=== PATIENT | male | born 1945 | race Caucasian/White ===

== ENCOUNTER 2016-09-07 11:25 | Observation (INO) | payer OTHER, MEDICARE, BC ==
--- NOTE | 2016-09-07 11:47 | ER Document Report ---
ED General - General Stated Complaint: CHEST PAIN Mode of Arrival: Ambulatory Information source: Patient Notes: 71 yr old male with no hx of cardiac concern presents with complitns of left sided chest pain. Pt notes initially he got very nauseated, vomited 3x, then had left sided discomfort which turned into chest pain lasting about 30 minutes. Pt notes pain resolved on its own. denies any fevers or chills. - HPI Onset: Just prior to arrival Onset/Duration: Sudden Quality of pain: Achy, Pressure Severity: Mild Pain Level: 1 Associated symptoms: Chest pain, Nausea, Vomiting Exacerbated by: Denies Relieved by: Denies Similar symptoms previously: No Recently seen / treated by doctor: No Past Medical History - Social History Smoking Status: Former Smoker Cigarette use (# per day): No Chew tobacco use (# tins/day): No Smoking Education Provided: No Family History: Reviewed & Not Pertinent Review of Systems - Review of Systems Notes: REVIEW OF SYSTEMS: CONSTITUTIONAL : Denies fever, chills, or sweats. Denies recent illness. EENT: Denies eye, ear, throat, or mouth pain or symptoms. Denies nasal or sinus congestion or discharge. Denies throat, tongue, or mouth swelling or difficulty swallowing. CARDIOVASCULAR: Admits to chest pain RESPIRATORY: Denies cough, cold, or chest congestion. Denies shortness of breath, difficulty breathing, or wheezing. GASTROINTESTINAL: Admits to nausea vomiting. GENITOURINARY: Denies difficulty urinating, painful urination, burning, frequency, blood in urine, or discharge. MUSCULOSKELETAL: Denies back or neck pain or stiffness. Denies joint pain or swelling. SKIN: Denies rash, lesions or sores. HEMATOLOGIC : Denies easy bruising or bleeding. LYMPHATIC: Denies swollen, enlarged glands. NEUROLOGICAL: Denies confusion or altered mental status. Denies passing out or loss of consciousness. Denies dizziness or lightheadedness. Denies headache. Denies weakness or paralysis or loss of use of either side. Denies problems with gait or speech. Denies sensory loss, numbness, or tingling. Denies seizures. PSYCHIATRIC: Denies anxiety or stress. Denies depression, suicidal ideation, or homicidal ideation. ALL OTHER SYSTEMS REVIEWED AND NEGATIVE. Dictation was performed using [employer] voice recognition software PHYSICAL EXAMINATION: GENERAL: Well-appearing, well-nourished and in no acute distress. HEAD: Atraumatic, normocephalic. EYES: Pupils equal round and reactive to light, extraocular movements intact, sclera anicteric, conjunctiva are normal. ENT: Nares patent, oropharynx clear without exudates. Moist mucous membranes. NECK: Normal range of motion, supple without lymphadenopathy LUNGS: Breath sounds clear to auscultation bilaterally and equal. No wheezes rales or rhonchi. HEART: Regular rate and rhythm without murmurs ABDOMEN: Soft, nontender, nondistended abdomen. No guarding, no rebound. No masses appreciated. Musculoskeletal: Normal range of motion, no pitting or edema. No cyanosis. NEUROLOGICAL: Cranial nerves grossly intact. Normal speech, normal gait. Normal sensory, motor exams PSYCH: Normal mood, normal affect. SKIN: Warm, Dry, normal turgor, no rashes or lesions noted. Course - Re-evaluation Re-evalutation: 09/07/16 11:46 On evaluation patient is in no distress at this time EKG notes no acute abnormality, lab work is pending I expect ACS rule out for this patient given age and presentation 09/07/16 13:04 lab work , ekg chest xray - Laboratory Result Diagrams: 09/07/16 11:40 09/07/16 11:40 Laboratory results interpreted by me: 09/07/16 09/07/16 11:40 11:40 WBC 13.7 H Hgb 12.3 L MCH 26.7 L RDW 15.6 H Seg Neuts % (Manual) 92 H Band Neutrophils % 2 L Lymphocytes % (Manual) 3 L Monocytes % (Manual) 1 L Abs Neuts (Manual) 12.9 H BUN 28 H Glucose 129 H Alkaline Phosphatase 133 H Creatine Kinase 38 L - Diagnostic Test Radiology reviewed: Image reviewed, Reports reviewed - EKG Interpretation by Me EKG shows normal: Sinus rhythm, Westfall, Intervals, QRS Complexes Discharge - Discharge Clinical Impression: Chest pain Qualifiers: Chest pain type: unspecified Qualified Code(s): R07.9 - Chest pain, unspecified Nausea and vomiting Qualifiers: Vomiting type: unspecified Vomiting Intractability: non-intractable Qualified Code(s): R11.2 - Nausea with vomiting, unspecified Hypertension Qualifiers: Hypertension type: essential hypertension Qualified Code(s): I10 - Essential ( primary) hypertension Diabetes mellitus Qualifiers: Diabetes mellitus type: type 1 Diabetes mellitus complication status: with unspecified complications Qualified Code(s): E10.8 - Type 1 diabetes mellitus with unspecified complications Condition: Stable Disposition: ADMITTED OBSERVATION Admitting Provider: Hospitalist Unit Admitted: Telemetry
[2016-09-07 12:03] LABS: HEMOGLOBIN 12.3 g/dL (13.5-17.0); HGB HCT DIFFERENCE -1.1; MEAN CORPUSCULAR HEMOGLOBIN 26.7 pg (27.0-33.4); MEAN CORPUSCULAR HGB CONC 32.3 g/dL (32.0-36.0); MEAN CORPUSCULAR VOLUME 83 fl (80-97); RED BLOOD COUNT 4.59 10^6/uL (4.35-5.55); RED CELL DISTRIBUTION WIDTH 15.6 % (11.5-14.0); WHITE BLOOD COUNT 13.7 10^3/uL (4.0-10.5)
[2016-09-07 12:17] LABS: ALANINE AMINOTRANSFERASE 24 U/L (21-72); ALBUMIN 3.9 g/dL (3.5-5.0); ALKALINE PHOSPHATASE 133 U/L (38-126); ANION GAP 14 (5-19); ASPARTATE AMINO TRANSFERASE 20 U/L (17-59); BILIRUBIN,DIRECT 0.2 mg/dL (0.0-0.4); BILIRUBIN,TOTAL 0.5 mg/dL (0.2-1.3); BLOOD UREA NITROGEN 28 mg/dL (7-20); CALCIUM 9.6 mg/dL (8.4-10.2); CARBON DIOXIDE 28 mmol/L (22-30); CHLORIDE 102 mmol/L (98-107); CREATINE KINASE 38 U/L (55-170); CREATININE RESULT 0.84 mg/dL (0.52-1.25); GLUCOSE 129 mg/dL (75-110); POTASSIUM 4.8 mmol/L (3.6-5.0); SODIUM 144.2 mmol/L (137-145); TOTAL PROTEIN 7.5 g/dL (6.3-8.2)
[2016-09-07 12:23] LABS: BAND NEUTROPHILS % (MANUAL) 2 % (3-5); BASOPHILS % (MANUAL) 0 % (0-2); EOSINOPHILS % (MANUAL) 1 % (0-6); LYMPHOCYTES % (MANUAL) 3 % (13-45); TOTAL CELLS COUNTED 100
[2016-09-07 12:24] LABS: ANISOCYTOSIS SLIGHT; HYPOCHROMASIA SLIGHT
[2016-09-07 12:27] LABS: CREATINE KINASE MB 0.82 ng/mL (<4.55); TROPONIN I < 0.012 ng/mL
[2016-09-07] MEDS ORDERED: ONDANSETRON HCL INJ/PF 4 MG/2 ML SDV IV PRN (13:16)
[2016-09-07] MEDS ORDERED: NITROGLYCERIN 0.4 MG/TAB 25 TAB/BOTTLE SL PRN (13:16)
[2016-09-07] MEDS ORDERED: MAG HYDROX/AL HYDROX/SIMETH SUSP 30 ML UDCUP PO PRN (13:16)
[2016-09-07] MEDS ORDERED: KETOROLAC TROMETHAMINE INJ/PF 30 MG/1 ML SDV IV PRN (13:48)
[2016-09-07] MEDS ORDERED: INSULIN LISPRO 100 UNIT/ML 3 ML VIAL SUBCUT PRN (13:49)
[2016-09-07] MEDS ORDERED: DEXTROSE 50%-WATER 25 GM/50 ML DISP.SYRIN IV PRN ×2 (13:49)
[2016-09-07] MEDS ORDERED: GLUCAGON,HUMAN RECOMB 1 MG INJ IM PRN (13:49)
[2016-09-07] MEDS ORDERED: DEXTROSE 40% GEL 15 GM TUBE PO PRN ×2 (13:49)
--- NOTE | 2016-09-07 15:25 | PDOC H&P ---
History of Present Illness Patient complains of: Left sided chest pain, nausea and vomiting History of Present Illness: LITA LANG is a 71 year old male with medical history of diabetes mellitus type I, hypertension, dyslipidemia and former tobacco abuse. Presents to [facility] emergency room this morning with complaints of left-sided chest discomfort that lasted for approximately 30 minutes after a period of nausea, vomiting, and pain. Denies any prior history of chest pain or angina. He is 2 months post left thoracotomy for left lower lobectomy for stage I lung cancer. He states pain is not similar to his incisional discomfort. He does have a history of gastroesophageal reflux disease, which was not like this pain either. This pain started out as dull, until he vomited, and then became severe and last approximately 30 minutes. That is why he opted to seek medical care. The pain had resolved by the time he arrived in the ED. He has no further nausea or vomiting symptoms either. He denies any shortness of breath or diaphoresis with the pain. Past Medical History Cardiac Medical History: Reports: None Pulmonary Medical History: Reports: Chronic Obstructive Pulmonary Disease (COPD) , Other - Recent left lower lobectomy for lung cancer EENT Medical History: Reports: None Neurological Medical History: Reports: None Endocrine Medical History: Reports: Diabetes Mellitus Type 1, Diabetes Mellitus Type 2 Renal/ Medical History: Reports: None Malignancy Medical History: Reports: Lung Cancer, Other - Trochanter GI Medical History: Reports: Gastroesophageal Reflux Disease Musculoskeltal Medical History: Reports: None Skin Medical History: Reports: None Psychiatric Medical History: Reports: None Traumatic Medical History: Reports: None Hematology: Reports: None Infectious Medical History: Reports: None Past Surgical History Past Surgical History: Reports: Other - left thoracotomy, left lower lobectomy Social History Information Source: Patient Lives with: Spouse/Significant other Smoking Status: Former Smoker Number of Years Smokin Last Time Smoked: 10 years ago Frequency of Alcohol Use: Rare Hx Recreational Drug Use: No Hx Prescription Drug Abuse: No - Advance Directive Resuscitation Status: Full Code Surrogate healthcare decision maker:: Hanna Family History Family History: Hyperlipidemia, Hypertension Parental Family History Reviewed: Yes Children Family History Reviewed: Yes Sibling(s) Family History Reviewed.: Yes Medication/Allergy Home Medications: Albuterol Sulfate [Proair HFA] 2 puff IH BID 09/07/16 Aspirin [Aspirin 325 mg Tablet] 325 mg PO DAILY 09/07/16 Cholecalciferol (Vitamin D3) [Vitamin D3 1000 Unit Tablet] 1 tab PO DAILY Hydrochlorothiazide [Hydrodiuril 25 mg Tablet] 25 mg PO QAM 09/07/16 Insulin Aspart [Novolog Insulin (Aspart) 100 unit/mL] 0 units PUMP .PER PUMP 01/16 Methocarbamol [Robaxin 500 mg Tablet] 500 mg PO BID 09/07/16 Multivitamin [Daily Multiple Vitamin] 1 tab PO DAILY 09/07/16 Omeprazole 20 mg PO QPM 09/07/16 Sertraline HCl [Zoloft] 100 mg PO QHS 09/07/16 Simvastatin [Zocor 20 mg Tablet] 10 mg PO QHS 09/07/16 Sulindac [Clinoril] 200 mg PO BID 09/07/16 Trazodone HCl [Desyrel] 100 mg PO QHS 09/07/16 Allergies/Adverse Reactions: divalproex sodium [From Depakote] Allergy (Verified 09/07/16 13:36) codeine Adverse Reaction (Verified 09/07/16 13:36) Review of Systems Constitutional: ABSENT: chills, fever(s), headache(s), weight gain, weight loss Eyes: ABSENT: visual disturbances Ears: ABSENT: hearing changes Cardiovascular: PRESENT: chest pain Respiratory: ABSENT: cough, hemoptysis Gastrointestinal: PRESENT: nausea, vomiting Genitourinary: ABSENT: dysuria, hematuria Musculoskeletal: ABSENT: joint swelling Integumentary: ABSENT: rash, wounds Neurological: ABSENT: abnormal gait, abnormal speech, confusion, dizziness, focal weakness, syncope Psychiatric: ABSENT: anxiety, depression, homidical ideation, suicidal ideation Endocrine: ABSENT: cold intolerance, heat intolerance, polydipsia, polyuria Hematologic/Lymphatic: ABSENT: easy bleeding, easy bruising Physical Exam Vital Signs: Temp Pulse Resp BP Pulse Ox 25 H 137/81 H 97 09/07/16 13:01 09/07/16 13:01 09/07/16 13:01 Intake & Output 09/06/16 09/07/16 09/08/16 06:59 06:59 06:59 Weight 81.647 kg General appearance: PRESENT: no acute distress, well-developed, well-nourished Head exam: PRESENT: atraumatic, normocephalic Eye exam: PRESENT: conjunctiva pink, EOMI, PERRLA. ABSENT: scleral icterus Ear exam: PRESENT: normal external ear exam Mouth exam: PRESENT: moist, tongue midline Neck exam: ABSENT: carotid bruit, JVD, lymphadenopathy, thyromegaly Respiratory exam: PRESENT: clear to auscultation grisel. ABSENT: rales, rhonchi, wheezes Cardiovascular exam: PRESENT: RRR. ABSENT: diastolic murmur, rubs, systolic murmur Pulses: PRESENT: normal dorsalis pedis pul Vascular exam: PRESENT: normal capillary refill GI/Abdominal exam: PRESENT: normal bowel sounds, soft. ABSENT: distended, guarding, mass, organolmegaly, rebound, tenderness Rectal exam: PRESENT: deferred Extremities exam: PRESENT: full ROM. ABSENT: calf tenderness, clubbing, pedal edema Neurological exam: PRESENT: alert, awake, oriented to person, oriented to place , oriented to time, oriented to situation, CN II-XII grossly intact. ABSENT: motor sensory deficit Psychiatric exam: PRESENT: appropriate affect, normal mood. ABSENT: homicidal ideation, suicidal ideation Skin exam: PRESENT: dry, intact, warm. ABSENT: cyanosis, rash Results Laboratory Results: 09/07/16 11:40 09/07/16 11:40 09/07/16 09/07/16 11:40 11:40 WBC 13.7 H RBC 4.59 Hgb 12.3 L Hct 38.0 MCV 83 MCH 26.7 L MCHC 32.3 RDW 15.6 H Plt Count 341 Seg Neutrophils % Not Reportable Lymphocytes % Not Reportable Monocytes % Not Reportable Eosinophils % Not Reportable Basophils % Not Reportable Absolute Neutrophils Not Reportable Absolute Lymphocytes Not Reportable Absolute Monocytes Not Reportable Absolute Eosinophils Not Reportable Absolute Basophils Not Reportable Sodium 144.2 Potassium 4.8 Chloride 102 Carbon Dioxide 28 Anion Gap 14 BUN 28 H Creatinine 0.84 Est GFR ( Amer) > 60 Est GFR (Non-Af Amer) > 60 Glucose 129 H Calcium 9.6 Total Bilirubin 0.5 AST 20 ALT 24 Alkaline Phosphatase 133 H Total Protein 7.5 Albumin 3.9 09/07/16 09/07/16 11:40 11:40 Creatine Kinase 38 L CK-MB (CK-2) 0.82 Troponin I < 0.012 Impressions: Chest X-Ray 09/07/16 11:25 IMPRESSION: Postsurgical changes left lung. No acute findings. Assessment & Plan - Diagnosis (1) Chest pain Qualifiers: Chest pain type: unspecified Qualified Code(s): R07.9 - Chest pain, unspecified Is this a current diagnosis for this admission?: YesPlan: Will admit to telemetry on observation. Serial troponins to rule out acute coronary syndrome. Pain atypical for angina, most likely GI origin. (2) Diabetes Qualifiers: Diabetes mellitus type: type 1 Diabetes mellitus complication status: with unspecified complications Qualified Code(s): E10.8 - Type 1 diabetes mellitus with unspecified complications Is this a current diagnosis for this admission?: YesPlan: Continue insulin pump and sliding scale insulin (3) Hypertension Qualifiers: Hypertension type: essential hypertension Qualified Code(s): I10 - Essential (primary) hypertension Is this a current diagnosis for this admission?: YesPlan: Continue home medications he is presently normotensive (4) Nausea & vomiting Qualifiers: Vomiting type: unspecified Vomiting Intractability: non-intractable Qualified Code(s): R11.2 - Nausea with vomiting, unspecified Is this a current diagnosis for this admission?: YesPlan: When necessary antiemetics (5) Lung cancer, lower lobe Qualifiers: Laterality: left Qualified Code(s): C34.32 - Malignant neoplasm of lower lobe, left bronchus or lung Is this a current diagnosis for this admission?: YesPlan: Patient recently underwent left thoracotomy, left lower lobectomy for stage I lung cancer. He continues to have some chest wall tenderness - Time Time Spent: 50 to 70 Minutes Critical Time spent with patient: 25-34 minutes Medications reviewed and adjusted accordingly: Yes Anticipated discharge: Home Within: within 24 hours
[2016-09-07 15:49] VITALS: BP 143/65
[2016-09-07] MEDS ORDERED: LANSOPRAZOLE 15 MG TAB.RAP.DR PO ONE (16:00)
--- NOTE | 2016-09-07 16:59 | PDOC DISCHARGE SUMMARY ---
General - Admit/Disc Date/PCP Admission Date/Primary Care Provider: 09/07/16 13:16 Discharge Date: 09/07/16 - Discharge Diagnosis (1) Chest pain Is this a current diagnosis for this admission?: YesSummary: Patient signed out AMA (2) Diabetes Is this a current diagnosis for this admission?: Yes (3) Hypertension Is this a current diagnosis for this admission?: Yes (4) Nausea & vomiting Is this a current diagnosis for this admission?: Yes (5) Lung cancer, lower lobe Is this a current diagnosis for this admission?: Yes - Additional Information Resuscitation Status: Full Code Home Medications: Albuterol Sulfate [Proair HFA] 2 puff IH BID 09/07/16 Aspirin [Aspirin 325 mg Tablet] 325 mg PO DAILY 09/07/16 Cholecalciferol (Vitamin D3) [Vitamin D3 1000 Unit Tablet] 1 tab PO DAILY Hydrochlorothiazide [Hydrodiuril 25 mg Tablet] 25 mg PO QAM 09/07/16 Insulin Aspart [Novolog Insulin (Aspart) 100 unit/mL] 0 units PUMP .PER PUMP 01/16 Methocarbamol [Robaxin 500 mg Tablet] 500 mg PO BID 09/07/16 Multivitamin [Daily Multiple Vitamin] 1 tab PO DAILY 09/07/16 Omeprazole 20 mg PO QPM 09/07/16 Sertraline HCl [Zoloft] 100 mg PO QHS 09/07/16 Simvastatin [Zocor 20 mg Tablet] 10 mg PO QHS 09/07/16 Sulindac [Clinoril] 200 mg PO BID 09/07/16 Trazodone HCl [Desyrel] 100 mg PO QHS 09/07/16 History of Present Illness Patient complains of: Chest pain History of Present Illness: LITA LANG is a 71 year old male with medical history of diabetes mellitus type I, hypertension, dyslipidemia and former tobacco abuse. Presents to [facility]'s emergency room this morning with complaints of left-sided chest discomfort that lasted for approximately 30 minutes after a period of nausea, vomiting, and pain. Denies any prior history of chest pain or angina. He is 2 months post left thoracotomy for left lower lobectomy for stage I lung cancer. He states pain is not similar to his incisional discomfort. He does have a history of gastroesophageal reflux disease, which was not like this pain either. This pain started out as dull, until he vomited, and then became severe and last approximately 30 minutes. That is why he opted to seek medical care. The pain had resolved by the time he arrived in the ED. He has no further nausea or vomiting symptoms either. He denies any shortness of breath or diaphoresis with the pain. Hospital Course Hospital Course: Patient had been admitted on observation status for chest pain. First 2 initial troponins were less than 0.012 patient states he feels fine. Patient states he wishes to go home, RN gave him the AGAINST MEDICAL ADVICE form he did sign it and he was discharged. Physical Exam Vital Signs: Temp Pulse Resp BP Pulse Ox 98.2 F 17 143/65 H 97 09/07/16 15:01 09/07/16 15:01 09/07/16 15:01 09/07/16 15:01 General appearance: PRESENT: no acute distress, well-developed, well-nourished Head exam: PRESENT: atraumatic, normocephalic Eye exam: PRESENT: conjunctiva pink, EOMI, PERRLA. ABSENT: scleral icterus Ear exam: PRESENT: normal external ear exam Mouth exam: PRESENT: moist, tongue midline Neck exam: ABSENT: carotid bruit, JVD, lymphadenopathy, thyromegaly Respiratory exam: PRESENT: clear to auscultation grisel. ABSENT: rales, rhonchi, wheezes Cardiovascular exam: PRESENT: RRR. ABSENT: diastolic murmur, rubs, systolic murmur Pulses: PRESENT: normal dorsalis pedis pul Vascular exam: PRESENT: normal capillary refill GI/Abdominal exam: PRESENT: normal bowel sounds, soft. ABSENT: distended, guarding, mass, organolmegaly, rebound, tenderness Rectal exam: PRESENT: deferred Extremities exam: PRESENT: full ROM. ABSENT: calf tenderness, clubbing, pedal edema Neurological exam: PRESENT: alert, awake, oriented to person, oriented to place , oriented to time, oriented to situation, CN II-XII grossly intact. ABSENT: motor sensory deficit Psychiatric exam: PRESENT: appropriate affect, normal mood. ABSENT: homicidal ideation, suicidal ideation Skin exam: PRESENT: dry, intact, warm. ABSENT: cyanosis, rash Results Laboratory Results: 09/07/16 14:51 Troponin I < 0.012 Impressions: Chest X-Ray 09/07/16 11:25 IMPRESSION: Postsurgical changes left lung. No acute findings. Qualifiers PATEINT BEING DISCHARGED WITH ANY OF THE FOLLOWING DIAGNOSIS?: No Plan Discharge Plan: Patient left AGAINST MEDICAL ADVICE Time Spent: Less than 30 Minutes
[2016-09-07] MEDS ORDERED: ALBUTEROL SULFATE HFA (90 MCG/PUFF) 8 GM MDI (1 MDI/ER DISP) IH SCH (18:00)
[2016-09-07] MEDS ORDERED: SULINDAC 200 MG PO SCH (18:00)
[2016-09-07] MEDS ORDERED: METHOCARBAMOL 500 MG TABLET PO SCH (18:00)
--- NOTE | 2016-09-07 20:48 | EKG REPORT ---
SEVERITY:- BORDERLINE ECG - SINUS RHYTHM BORDERLINE T ABNORMALITIES, ANT-LAT LEADS : Confirmed by: Lisa Cristina 07-Sep-2016 20:46:29
[2016-09-07] MEDS ORDERED: SERTRALINE HCL 50 MG TABLET PO SCH (22:00)
[2016-09-07] MEDS ORDERED: TRAZODONE HCL 50 MG TABLET PO SCH (22:00)
[2016-09-07] MEDS ORDERED: (PENDING PHARMACY ID) (Trazodone Hcl [Desyrel] 100 MG) PO SCH (22:00)
[2016-09-07] MEDS ORDERED: FAMOTIDINE 20 MG TABLET PO SCH (22:00)
[2016-09-07] MEDS ORDERED: SIMVASTATIN 10 MG TABLET PO SCH (22:00)
[2016-09-07] MEDS ORDERED: SIMVASTATIN 10 MG PO SCH (22:00)
[2016-09-08] MEDS ORDERED: LANSOPRAZOLE 15 MG TAB.RAP.DR PO SCH (06:00)
[2016-09-08] MEDS ORDERED: HYDROCHLOROTHIAZIDE 25 MG TABLET PO SCH (08:00)
[2016-09-08] MEDS ORDERED: ASPIRIN 325 MG TABLET PO SCH (10:00)
[2016-09-08] MEDS ORDERED: MULTIVITAMIN TABLET PO SCH (10:00)
[2016-09-08] MEDS ORDERED: ASPIRIN 81 MG TABLET, CHEWABLE PO SCH (10:00)
[2016-09-08] MEDS ORDERED: CHOLECALCIFEROL (D3) 1,000 UNIT TABLET PO SCH (10:00)
== END 2016-09-07 15:52 | disposition left against medical advice (07) ==
LOC: ER 11:25 → EH 13:16 → UNDOADMOB 13:35 → EH 13:35
PROVIDERS: ADMIT Family Medicine; ATTEND Family Medicine
DX: R07.9 Chest pain, unspecified (principal); I10 Essential (primary) hypertension; E10.9 Type 1 diabetes mellitus without complications; R11.2 Nausea with vomiting, unspecified; C34.32 Malignant neoplasm of lower lobe, left bronchus or lung; E78.5 Hyperlipidemia, unspecified; J44.9 Chronic obstructive pulmonary disease, unspecified; Z87.891 Personal history of nicotine dependence
CPT/HCPCS: 93005; 99285; 36415; 82553; 82962; 82550; 85025; 80053; 84484; 71010; 93010; G0378

== ENCOUNTER 2016-12-17 05:27 | Inpatient (IN) | payer OTHER, MEDICARE, BC ==
[2016-12-17 06:13] LABS: ABSOLUTE EOSINOPHILS # (AUTO) 0.1 10^3/uL (0.0-0.6); ABSOLUTE LYMPHOCYTES (AUTO) 0.5 10^3/uL (0.5-4.7); ABSOLUTE MONOCYTES (AUTO) 0.1 10^3/uL (0.1-1.4); BASOPHILS % (AUTO) 0.2 % (0-2); EOSINOPHILS % (AUTO) 1.4 % (0-6); HEMATOCRIT 40.2 % (37.9-51.0); HEMOGLOBIN 12.9 g/dL (13.5-17.0); HGB HCT DIFFERENCE -1.5; LYMPHOCYTES % (AUTO) 7.2 % (13-45); MEAN CORPUSCULAR HEMOGLOBIN 28.1 pg (27.0-33.4); MEAN CORPUSCULAR HGB CONC 32.1 g/dL (32.0-36.0); MEAN CORPUSCULAR VOLUME 88 fl (80-97); MONOCYTES % (AUTO) 2.2 % (3-13); RED BLOOD COUNT 4.58 10^6/uL (4.35-5.55); RED CELL DISTRIBUTION WIDTH 18.4 % (11.5-14.0); WHITE BLOOD COUNT 6.7 10^3/uL (4.0-10.5)
[2016-12-17] MEDS ORDERED: ALBUTEROL SULFATE 0.083% NEB 2.5 MG/3 ML AMPUL NEB ONE (06:18)
[2016-12-17] MEDS ORDERED: IPRATROPIUM/ALBUTEROL 0.5-2.5 MG/3 ML AMPUL NEB ONE (06:18)
[2016-12-17] MEDS ORDERED: NORMAL SALINE 1000 ML 1,000 ML IV ONE ×3 (06:18→09:20)
[2016-12-17] MEDS ORDERED: METHYLPREDNISOLONE INJ 125 MG/2 ML SDV IV ONE (06:18)
[2016-12-17 06:25] LABS: ALANINE AMINOTRANSFERASE 35 U/L (21-72); ALBUMIN 3.6 g/dL (3.5-5.0); ALKALINE PHOSPHATASE 143 U/L (38-126); ANION GAP 8 (5-19); ASPARTATE AMINO TRANSFERASE 25 U/L (17-59); BILIRUBIN,DIRECT 0.4 mg/dL (0.0-0.4); BILIRUBIN,TOTAL 0.6 mg/dL (0.2-1.3); BLOOD UREA NITROGEN 21 mg/dL (7-20); CALCIUM 8.8 mg/dL (8.4-10.2); CARBON DIOXIDE 27 mmol/L (22-30); CHLORIDE 104 mmol/L (98-107); CREATINE KINASE 77 U/L (55-170); CREATININE RESULT 0.93 mg/dL (0.52-1.25); GLUCOSE 292 mg/dL (75-110); POTASSIUM 4.7 mmol/L (3.6-5.0); TOTAL PROTEIN 6.5 g/dL (6.3-8.2)
[2016-12-17 06:36] LABS: CREATINE KINASE MB 2.09 ng/mL (<4.55)
[2016-12-17 06:42] LABS: TROPONIN I < 0.012 ng/mL
--- NOTE | 2016-12-17 06:51 | RADIOLOGY REPORT (SQ) ---
EXAM DESCRIPTION: CHEST SINGLE VIEW COMPLETED DATE/TIME: 12/17/2016 6:40 am REASON FOR STUDY: er21 dyspnea COMPARISON: 09/07/2016. EXAM PARAMETERS: NUMBER OF VIEWS: One view. TECHNIQUE: Single frontal radiographic view of the chest acquired. RADIATION DOSE: NA LIMITATIONS: None. FINDINGS: LUNGS AND PLEURA: Infiltrate in the right lower lobe. Stable surgical changes on the left side with volume loss and scarring. MEDIASTINUM AND HILAR STRUCTURES: No masses. Contour normal. HEART AND VASCULAR STRUCTURES: Heart normal in size. Normal vasculature. BONES: No acute findings. HARDWARE: Surgical clips. OTHER: No other significant finding. IMPRESSION: STABLE SURGICAL CHANGES. INFILTRATE IN THE RIGHT LOWER LOBE SUSPICIOUS FOR PNEUMONIA. TECHNICAL DOCUMENTATION: JOB ID: [id number]
--- NOTE | 2016-12-17 07:15 | RADIOLOGY REPORT (SQ) ---
EXAM DESCRIPTION: CTA CHEST COMPLETED DATE/TIME: 12/17/2016 7:00 am REASON FOR STUDY: lung ca now sob COMPARISON: None. TECHNIQUE: CT scan of the chest performed using helical scanning technique with dynamic intravenous contrast injection. Images reviewed with lung, soft tissue and bone windows. Reconstructed coronal and sagittal MPR images reviewed. Additional 3 dimensional post-processing performed to develop Maximal Intensity Projection images (FL P). All images stored on PACS. All CT scanners at this facility use dose modulation, iterative reconstruction, and/or weight based d osing when appropriate to reduce radiation dose to as low as reasonably achievable (ALARA). [facility]: Dose Right [facility]: CareDose [facility]: Dose Right [facility]: Teradose 4D [facility]: Vessel CONTRAST TYPE AND DOSE: contrast/concentration: Isovue 370.00 mg/ml; Total Contrast Delivered: 100.0 ml; Total Saline Delivered: 55.1 ml RENAL FUNCTION: Creatinine 0.93. RADIATION DOSE: . LIMITATIONS: None. FINDINGS: LUNGS AND PLEURA: Emphysematous changes with scarring. Surgical changes. Extensive infil trate in the right lung. Calcified granulomas. AORTA AND GREAT VESSELS: No aneurysm or dissection. HEART: No pericardial effusion. PULMONARY ARTERIES: No emboli visualized in the main pulmonary arteries or the segmental branches. HILAR AND MEDIASTINAL STRUCTURES: No identified masses or abnormal nodes. Calcified lymph nodes. HARDWARE: None in the chest. UPPER ABDOMEN: See separate report of the CT of the abdomen. THYROID AND OTHER SOFT TISSUES: No masses. No adenopathy. BONES: No acute or significant finding. 3D MIPS: Confirm above findings. OTHER: No other significant finding. IMPRESSION: 1. NORMAL CTA OF THE CHEST. NO PULMONARY EMBOLI. 2. EXTENSIVE INFILTRATE IN THE RIGHT LUNG CONSISTENT WITH PNEUMONIA. 3. COPD WITH CHRONIC SCARRING. SURGICAL CHANGES. TECHNICAL DOCUMENTATION: JOB ID: [id number] Quality ID # [id number]: Final reports with documentation of one or more dose reduction techniques (e.g., Au tomated exposure control, adjustment of the mA and/or kV according to patient size, use of iterative reconstruction technique) 2010 [employer]- All Rights Reserved
--- NOTE | 2016-12-17 07:21 | RADIOLOGY REPORT (SQ) ---
EXAM DESCRIPTION: CT ABD/PELVIS WITH IV ONLY COMPLETED DATE/TIME: 12/17/2016 7:00 am REASON FOR STUDY: bladder tumor debulk 7-17 distension n/v COMPARISON: None. TECHNIQUE: CT scan of the abdomen and pelvis performed using helical scanning technique with dynamic intravenous contrast injection. No oral contrast. Images reviewed with lung, soft tissue, and bone windows. Reconstructed coronal and sagittal MPR images reviewed. Delayed images for evaluation of the urinary system also acquired. All images stored on PACS. All CT scanners at this facility use dose modulation, iterative reconstruction, and/or weight based d osing when appropriate to reduce radiation dose to as low as reasonably achievable (ALARA). [facility]: Dose Right [facility]: CareDose [facility]: Dose Right [facility]: Teradose 4D [facility]: TapClicks CONTRAST TYPE AND DOSE: 93 mL Isovue 370- low osmolar. RENAL FUNCTION: Creatinine 0.93. RADIATION DOSE: Up-to-date CT equipment and radiation dose reduction techniques were employed. CTDIv ol: 37.1 - 38.4 mGy. DLP: 4779 mGy-cm.. LIMITATIONS: None. FINDINGS: LOWER CHEST: See separate report of the CT of the chest. LIVER: Normal size. No masses. No dilated ducts. SPLEEN: Normal size. No focal lesions. Calcified granulomas. PANCREAS: No masses. No significant calcifications. No adjacent inflammation or peripancreatic fluid collections. Pancreatic duct not dilated. GALLBLADDER: No identified stones by CT criteria. No inflammatory changes to suggest cholecystitis. ADRENAL GLANDS: No significant masses or asymmetry. RIGHT KIDNEY AND URETER: No solid masses. No significant calcifications. No hydronephrosis or hyd roureter. LEFT KIDNEY AND URETER: No solid masses. No significant calcifications. No hydronephrosis or hydr oureter. AORTA AND VESSELS: No aneurysm. No dissection. Renal arteries, SMA, celiac without stenosis. RETROPERITONEUM: No retroperitoneal adenopathy, hemorrhage or masses. BOWEL AND PERITONEAL CAVITY: Relative thickening of the wall of the descending and sigmoid colon. No masses or inflammatory changes. No free fluid or peritoneal masses. APPENDIX: Normal. PELVIS: No mass. No free fluid. Catheter in the bladder. Irregular bladder wall thickening. . ABDOMINAL WALL: No masses. No hernias. BONES: No significant or acute findings. OTHER: No other significant finding. IMPRESSION: 1. IRREGULAR BLADDER WALL THICKENING, PRESUMABLY RELATED TO THE RECENT SURGICAL PROCEDURE. 2. RELATIVE THICKENING OF THE WALL OF THE DESCENDING AND SIGMOID COLON. THIS COULD BE ARTIFACT DUE T O POOR DISTENTION OR COULD BE RELATED TO INFLAMMATION. 3. NO OTHER SIGNIFICANT OR ACUTE FINDING IN THE ABDOMEN OR PELVIS ON CT SCAN WITH IV CONTRAST. TECHNICAL DOCUMENTATION: JOB ID: [id number] Quality ID # [id number]: Final reports with documentation of one or more dose reduction techniques (e.g., Au tomated exposure control, adjustment of the mA and/or kV according to patient size, use of iterative reconstruction technique) 2010 [employer]- All Rights Reserved
[2016-12-17] MEDS ORDERED: LEVOFLOXACIN 500 MG/D5W RTU 100 ML IV ONE (08:22)
[2016-12-17] MEDS ORDERED: ADENOSINE INJ/PF 6 MG/2 ML SDV IV ONE ×4 (09:25→20:27)
--- NOTE | 2016-12-17 09:39 | ER Document Report ---
ED General - General Chief Complaint: Breathing Difficulty Stated Complaint: DIFFICULTY BREATHING TRAVEL OUTSIDE OF THE [place] IN LAST 30 DAYS: No - HPI Patient complains to provider of: Difficulty breathing Notes: Patient coming in for evaluation difficulty breathing. Patient has a history of lung cancer with a right-sided lobectomy bladder cancer with debulking of his tumor day prior to arrival. Patient states increased shortness of breath of the night. Patient was found to be hypoxic upon his arrival here in the ER requiring 2 L of oxygenation accuses O2 saturation above 90%. Patient does have a history of COPD with significant motion smoking history. Patient denies any smoking at this time. Denies any fevers chills nausea vomiting chest pain or abdominal pain. Patient denies any recent antibiotics. Upon my evaluation patient is now resting comfortably with mild tachycardia with a heart rate of 105-110. Blood pressure seems to be normal. - Related Data Allergies/Adverse Reactions: divalproex sodium [From Depakote] Allergy (Verified 09/07/16 13:36) codeine Adverse Reaction (Verified 09/07/16 13:36) Home Medications: Current Home Medications Acetaminophen [Tylenol] 325 mg PO Q4 PRN 12/17/16 [History] Aspirin [Aspirin 325 mg Tablet] 325 mg PO DAILY 12/17/16 [History] Cholecalciferol (Vitamin D3) [Vitamin D3 1000 Unit Tablet] 1,000 unit PO DAILY 12/17/16 [History] Hydrochlorothiazide 25 mg PO DAILY 12/17/16 [History] Insulin Aspart [Novolog Insulin (Aspart) 100 unit/mL] 0 units SQ .PUMP 12/17/16 [History] Mirtazapine [Remeron 15 mg Tablet] 7.5 mg PO QHS 12/17/16 [History] Multivitamin [Multivitamins] 1 cap PO DAILY 12/17/16 [History] Sertraline HCl [Zoloft] 150 mg PO QHS 12/17/16 [History] Trazodone HCl [Desyrel] 150 mg PO QHS 12/17/16 [History] Past Medical History - Social History Smoking Status: Unknown if Ever Smoked Family History: Hyperlipidemia, Hypertension Pulmonary Medical History: Reports: Hx COPD Endocrine Medical History: Reports: Hx Diabetes Mellitus Type 1, Hx Diabetes Mellitus Type 2 Malignancy Medical History: Reports Hx Lung Cancer GI Medical History: Reports: Hx Gastroesophageal Reflux Disease Psychiatric Medical History: Reports: Hx Depression - years ago Past Surgical History: Reports: Other - left thoracotomy, left lower lobectomy - Immunizations Hx Pneumococcal Vaccination: 06/02/16 Review of Systems - Review of Systems Constitutional: No symptoms reported EENT: No symptoms reported Cardiovascular: No symptoms reported Respiratory: Short of breath Gastrointestinal: No symptoms reported Genitourinary: No symptoms reported Male Genitourinary: No symptoms reported Musculoskeletal: No symptoms reported Skin: No symptoms reported Hematologic/Lymphatic: No symptoms reported Neurological/Psychological: No symptoms reported -: Yes All other systems reviewed and negative Physical Exam - Vital signs Vitals: Resp Pulse Ox 33 H 92 12/17/16 05:40 12/17/16 05:40 Interpretation: Tachycardic, Hypoxic - General General appearance: Appears well, Alert - HEENT Head: Normocephalic, Atraumatic Eyes: Normal Pupils: PERRL - Respiratory Respiratory status: Respiratory distress Breath sounds: Rhonchi, Wheezing Chest palpation: Normal - Cardiovascular Rhythm: Tachycardia Heart sounds: Normal auscultation Murmur: No - Abdominal Inspection: Normal Distension: Distended Bowel sounds: Normal Tenderness: Nontender Organomegaly: No organomegaly - Back Back: Normal, Nontender - Extremities General upper extremity: Normal inspection, Nontender, Normal color, Normal ROM , Normal temperature General lower extremity: Normal inspection, Nontender, Normal color, Normal ROM , Normal temperature, Normal weight bearing. No: Ayleen's sign - Neurological Neuro grossly intact: Yes Cognition: Normal Orientation: AAOx4 Chase Coma Scale Eye Opening: Spontaneous Chase Coma Scale Verbal: Oriented Chase Coma Scale Motor: Obeys Commands Chase Coma Scale Total: 15 Speech: Normal Motor strength normal: LUE, RUE, LLE, RLE Sensory: Normal - Psychological Associated symptoms: Normal affect, Normal mood - Skin Skin Temperature: Warm Skin Moisture: Dry Skin Color: Normal Course - Re-evaluation Re-evalutation: 12/17/16 13:18 Patient coming in for evaluation shortness of breath. Patient's CTA shows right middle lobe pneumonia patient did have some slight distention of his abdomen no signs of a small bowel obstruction on CT scan but there is marked edema of part of the intestines. Patient was started on Levaquin for his pneumonia. Rest of the lab work shows no acute process patient initially was admitted to the hospitalist for telemetry bed however after admission patient had a run of SVT that was converted after adenosine patient failed his vagal maneuvers patient tolerated the adenosine well. Patient was then switched to an IMCU bed. - Vital Signs Vital signs: Temp Pulse Resp BP Pulse Ox 98.1 F 104 H 26 H 132/63 H 96 12/17/16 06:09 12/17/16 11:19 12/17/16 11:31 12/17/16 11:31 12/17/16 11:31 - Laboratory Result Diagrams: 12/17/16 05:38 12/17/16 05:38 Laboratory results interpreted by me: 12/17/16 12/17/16 05:38 05:38 Hgb 12.9 L RDW 18.4 H Seg Neutrophils % 89.0 H Lymphocytes % 7.2 L Monocytes % 2.2 L BUN 21 H Glucose 292 H Alkaline Phosphatase 143 H Critical Care Note - Critical Care Note Total time excluding time spent on procedures (mins): 35 Comments: Patient with hypoxia requiring oxygen and then SVT times been multiple evaluations. 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
[2016-12-17] MEDS ORDERED: ALBUTEROL SULFATE 0.083% NEB 2.5 MG/3 ML AMPUL NEB PRN (10:12)
[2016-12-17] MEDS ORDERED: DEXTROSE 40% GEL 15 GM TUBE PO PRN ×2 (10:23)
[2016-12-17] MEDS ORDERED: DEXTROSE 50%-WATER 25 GM/50 ML DISP.SYRIN IV PRN ×2 (10:23)
[2016-12-17] MEDS ORDERED: GLUCAGON,HUMAN RECOMB 1 MG INJ IM PRN (10:23)
--- NOTE | 2016-12-17 10:46 | PDOC H&P ---
History of Present Illness Admission Date/PCP: 12/17/16 10:03 Patient complains of: Cough and shortness of breath History of Present Illness: LITA LANG is a 71 year old male who has a history of COPD and lung cancer who was discharged from the [facility] yesterday after having a TURB for bladder cancer. Reports he woke up this morning with a productive cough and shortness of breath. Patient denies having any fever. The patient presented to the emergency room and was found to have a right middle lobe pneumonia. The patient denies having any chest pain associated with this. He did have his bladder surgery yesterday but has had some pain hematuria but no other complications. The patient had an episode of SVT and was treated with adenosine. The patient has a history of lung cancer and had resection with a left lower lobectomy in June of this year. He is a former smoker but has not smoked for many years. Past Medical History Cardiac Medical History: Reports: Hyperlipidema, Hypertension Pulmonary Medical History: Reports: Chronic Obstructive Pulmonary Disease (COPD) EENT Medical History: Reports: None Neurological Medical History: Reports: None Endocrine Medical History: Reports: Diabetes Mellitus Type 1 Renal/ Medical History: Reports: None Malignancy Medical History: Reports: Lung Cancer GI Medical History: Reports: Gastroesophageal Reflux Disease Psychiatric Medical History: Reports: Depression - years ago Hematology: Reports: None Past Surgical History Past Surgical History: Reports: Other - left thoracotomy, left lower lobectomy Social History Information Source: Patient Lives with: Family Smoking Status: Former Smoker Frequency of Alcohol Use: None Hx Recreational Drug Use: No Hx Prescription Drug Abuse: No - Advance Directive Resuscitation Status: Full Code Family History Family History: Hyperlipidemia, Hypertension Family History: Father at age 59 with throat cancer. Mother at a young age from asthma Parental Family History Reviewed: Yes Children Family History Reviewed: No Sibling(s) Family History Reviewed.: No Medication/Allergy Allergies/Adverse Reactions: divalproex sodium [From Depakote] Allergy (Verified 09/07/16 13:36) codeine Adverse Reaction (Verified 09/07/16 13:36) Review of Systems Constitutional: ABSENT: chills, fever(s), headache(s), weight gain, weight loss Eyes: ABSENT: visual disturbances Ears: ABSENT: hearing changes Cardiovascular: PRESENT: dyspnea on exertion. ABSENT: chest pain, edema, orthropnea, palpitations Respiratory: PRESENT: as per HPI Gastrointestinal: ABSENT: abdominal pain, constipation, diarrhea, hematemesis, hematochezia, nausea, vomiting Genitourinary: ABSENT: dysuria, hematuria Musculoskeletal: ABSENT: joint swelling Integumentary: ABSENT: rash, wounds Neurological: ABSENT: abnormal gait, abnormal speech, confusion, dizziness, focal weakness, syncope Psychiatric: ABSENT: anxiety, depression Endocrine: ABSENT: cold intolerance, heat intolerance, polydipsia, polyuria Hematologic/Lymphatic: ABSENT: easy bleeding, easy bruising Physical Exam Vital Signs: Temp Pulse Resp BP Pulse Ox 98.1 F 28 H 126/60 H 93 12/17/16 06:09 12/17/16 09:46 12/17/16 09:46 12/17/16 09:17 General appearance: PRESENT: no acute distress, well-developed, well-nourished Head exam: PRESENT: atraumatic, normocephalic Eye exam: PRESENT: conjunctiva pink, EOMI, PERRLA. ABSENT: scleral icterus Ear exam: PRESENT: normal external ear exam Mouth exam: PRESENT: moist, tongue midline Neck exam: ABSENT: carotid bruit, JVD, lymphadenopathy, thyromegaly Respiratory exam: PRESENT: rhonchi - Rhonchi bilaterally.. ABSENT: rales, wheezes Cardiovascular exam: PRESENT: tachycardia. ABSENT: diastolic murmur, rubs, systolic murmur Pulses: PRESENT: normal dorsalis pedis pul Vascular exam: PRESENT: normal capillary refill GI/Abdominal exam: PRESENT: normal bowel sounds, soft. ABSENT: distended, guarding, mass, organolmegaly, rebound, tenderness Rectal exam: PRESENT: deferred Extremities exam: ABSENT: calf tenderness, clubbing, pedal edema Neurological exam: PRESENT: alert, awake, oriented to person, oriented to place , oriented to time, oriented to situation, CN II-XII grossly intact. ABSENT: motor sensory deficit Psychiatric exam: PRESENT: appropriate affect Skin exam: PRESENT: dry, intact, warm. ABSENT: cyanosis, rash Results Impressions: Chest X-Ray 12/17/16 05:43 IMPRESSION: STABLE SURGICAL CHANGES. INFILTRATE IN THE RIGHT LOWER LOBE SUSPICIOUS FOR PNEUMONIA. Abdomen/Pelvis CT 12/17/16 06:17 IMPRESSION: 1. IRREGULAR BLADDER WALL THICKENING, PRESUMABLY RELATED TO THE RECENT SURGICAL PROCEDURE. 2. RELATIVE THICKENING OF THE WALL OF THE DESCENDING AND SIGMOID COLON. THIS COULD BE ARTIFACT DUE TO POOR DISTENTION OR COULD BE RELATED TO INFLAMMATION. 3. NO OTHER SIGNIFICANT OR ACUTE FINDING IN THE ABDOMEN OR PELVIS ON CT SCAN WITH IV CONTRAST. Chest/Abdomen CTA 12/17/16 06:17 IMPRESSION: 1. NORMAL CTA OF THE CHEST. NO PULMONARY EMBOLI. 2. EXTENSIVE INFILTRATE IN THE RIGHT LUNG CONSISTENT WITH PNEUMONIA. 3. COPD WITH CHRONIC SCARRING. SURGICAL CHANGES. Assessment & Plan - Diagnosis (1) Pneumonia Qualifiers: Pneumonia type: due to unspecified organism Laterality: right Lung location: middle lobe of lung Qualified Code(s): J18.1 - Lobar pneumonia, unspecified organism Is this a current diagnosis for this admission?: YesPlan: Patient had a surgical procedure yesterday and most likely has some sedation associated with that. This morning he woke up with a cough and is found to have a right middle lobe pneumonia. This most likely is aspiration pneumonia. The patient will be started on Levaquin IV and given oxygen, nebulizers, fluids. He does have a history of having lung cancer and having a left lower lobectomy. No evidence for recurrence on chest x-ray today. (2) COPD (chronic obstructive pulmonary disease) Is this a current diagnosis for this admission?: YesPlan: The patient is a former smoker. Patient will be put on nebulizers and oxygen. (3) Hypertension Qualifiers: Hypertension type: essential hypertension Qualified Code(s): I10 - Essential (primary) hypertension Is this a current diagnosis for this admission?: YesPlan: His blood pressure is stable currently. (4) Hyperlipidemia Is this a current diagnosis for this admission?: YesPlan: Continue with Zocor. (5) Bladder cancer Qualifiers: Bladder location: unspecified site Qualified Code(s): C67.9 - Malignant neoplasm of bladder, unspecified Is this a current diagnosis for this admission?: YesPlan: Had a TURB done yesterday at the [facility] in [place]. We will continue to monitor closely. No evidence for obstruction. 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 We will check his fingerstick blood sugars and have him adjust his pump based on the blood sugar results. (7) Lung cancer, lower lobe Qualifiers: Laterality: left Qualified Code(s): C34.32 - Malignant neoplasm of lower lobe, left bronchus or lung Is this a current diagnosis for this admission?: YesPlan: Patient had a left lower lobectomy in June of this year. No evidence for recurrence on chest x-ray. (8) Supraventricular tachycardia Is this a current diagnosis for this admission?: YesPlan: Patient received adenosine in the emergency room. Will monitor on telemetry. - Time Time Spent: 50 to 70 Minutes - Inpatient Certification Medical Necessity: Need Close Monitoring Due to Risk of Patient Decompensation, Need for IV Antibiotics - Plan Summary Plan Summary: We will admit as a full inpatient as I anticipate this will require greater than a 2 midnight hospital stay because of his hypoxia requiring oxygen for treatment of his middle lobe pneumonia.
[2016-12-17] MEDS: NORMAL SALINE 1000 ML 1,000 ML IV PRN ×2 (11:39→18:44)
[2016-12-17] MEDS ORDERED: ENOXAPARIN SODIUM INJ 40 MG/0.4 ML DISP.SYRIN SUBCUT ONE (12:00)
[2016-12-17] MEDS: IPRATROPIUM/ALBUTEROL 0.5-2.5 MG/3 ML AMPUL NEB SCH ×2 (13:59→20:24)
[2016-12-17] MEDS: ACETAMINOPHEN 325 MG TABLET PO PRN (14:35)
--- NOTE | 2016-12-17 19:53 | EKG REPORT ---
SEVERITY:- ABNORMAL ECG - SUPRAVENTRICULAR TACHYCARDIA ABNRM R PROG, CONSIDER ASMI OR LEAD PLACEMENT REPOLARIZATION ABNORMALITY, PROB RATE RELATED : Confirmed by: Lisa Cristina 17-Dec-2016 19:52:48
--- NOTE | 2016-12-17 19:53 | EKG REPORT ---
SEVERITY:- ABNORMAL ECG - SINUS TACHYCARDIA ABNRM R PROG, CONSIDER ASMI OR LEAD PLACEMENT REPOL ABNRM SUGGESTS ISCHEMIA, DIFFUSE LEADS : Confirmed by: Lisa Cristina 17-Dec-2016 19:52:35
[2016-12-17] MEDS ORDERED: METOPROLOL TARTRATE PF/INJ 5 MG/5 ML SDV IV ONE ×2 (20:14→21:00)
[2016-12-17] MEDS ORDERED: DILTIAZEM HCL/D5W 125 ML IV PRN (20:27)
[2016-12-17] MEDS: FAMOTIDINE 20 MG TABLET PO SCH (21:15)
[2016-12-17 21:19] LABS: ANION GAP 11 (5-19); BLOOD UREA NITROGEN 22 mg/dL (7-20); CALCIUM 8.2 mg/dL (8.4-10.2); CARBON DIOXIDE 23 mmol/L (22-30); CHLORIDE 106 mmol/L (98-107); CREATINE KINASE 98 U/L (55-170); CREATININE RESULT 1.09 mg/dL (0.52-1.25); GLUCOSE 259 mg/dL (75-110); POTASSIUM 4.3 mmol/L (3.6-5.0); SODIUM 139.7 mmol/L (137-145)
[2016-12-17 21:31] LABS: CREATINE KINASE MB 1.76 ng/mL (<4.55); TROPONIN I 0.019 ng/mL
--- NOTE | 2016-12-17 23:51 | EKG REPORT ---
SEVERITY:- NORMAL ECG - SINUS RHYTHM : Confirmed by: Lisa Cristina 17-Dec-2016 23:50:46
[2016-12-18] MEDS: NORMAL SALINE 1000 ML 1,000 ML IV PRN ×2 (01:53→21:30)
[2016-12-18] MEDS: IPRATROPIUM/ALBUTEROL 0.5-2.5 MG/3 ML AMPUL NEB SCH ×4 (02:11→20:12)
[2016-12-18 03:36] LABS: ANION GAP 7 (5-19); BLOOD UREA NITROGEN 23 mg/dL (7-20); CALCIUM 8.1 mg/dL (8.4-10.2); CARBON DIOXIDE 22 mmol/L (22-30); CHLORIDE 110 mmol/L (98-107); CREATINE KINASE 108 U/L (55-170); CREATININE RESULT 0.93 mg/dL (0.52-1.25); GLUCOSE 261 mg/dL (75-110); SODIUM 138.8 mmol/L (137-145)
[2016-12-18 03:47] LABS: CREATINE KINASE MB 1.73 ng/mL (<4.55); HGB HCT DIFFERENCE -0.8; MEAN CORPUSCULAR HEMOGLOBIN 28.3 pg (27.0-33.4); MEAN CORPUSCULAR HGB CONC 32.5 g/dL (32.0-36.0); MEAN CORPUSCULAR VOLUME 87 fl (80-97); RED BLOOD COUNT 3.68 10^6/uL (4.35-5.55); RED CELL DISTRIBUTION WIDTH 18.1 % (11.5-14.0); TROPONIN I 0.023 ng/mL; WHITE BLOOD COUNT 9.7 10^3/uL (4.0-10.5)
[2016-12-18 03:53] LABS: BAND NEUTROPHILS % (MANUAL) 9 % (3-5); BASOPHILS % (MANUAL) 0 % (0-2); EOSINOPHILS % (MANUAL) 0 % (0-6); LYMPHOCYTES % (MANUAL) 4 % (13-45); TOTAL CELLS COUNTED 100; TOXIC GRANULATION SLIGHT
[2016-12-18 03:54] LABS: ANISOCYTOSIS 2+; HEMOGLOBIN 10.4 g/dL (13.5-17.0); OVALOCYTES SLIGHT; POIKILOCYTOSIS SLIGHT; ROULEAUX SLIGHT
[2016-12-18] MEDS: ACETAMINOPHEN 325 MG TABLET PO PRN (05:06)
[2016-12-18] MEDS ORDERED: BISACODYL 10 MG SUPP.RECT PR ONE (09:17)
[2016-12-18] MEDS: LEVOFLOXACIN 750 MG/D5W RTU 150 ML IV SCH (09:40)
[2016-12-18] MEDS: ENOXAPARIN SODIUM INJ 40 MG/0.4 ML DISP.SYRIN SUBCUT SCH (09:41)
[2016-12-18] MEDS: FAMOTIDINE 20 MG TABLET PO SCH ×2 (09:41→21:19)
[2016-12-18 10:26] LABS: CREATINE KINASE MB 1.65 ng/mL (<4.55); TROPONIN I 0.022 ng/mL
--- NOTE | 2016-12-18 10:34 | PDOC CONSULTATION ---
Consultation Consult Date: 12/18/16 Attending physician:: DANK PÉREZ Consult reason:: SVT History of Present Illness Admission Date/PCP: 12/17/16 10:12 Patient complains of: Shortness of breath and rapid heartbeat History of Present Illness: LITA LANG is a 71 year old male who has a history of COPD and lung cancer who was discharged from the [facility] yesterday after having a TURB for bladder cancer. Reports he woke up this morning with a productive cough and shortness of breath. Patient denies having any fever. The patient presented to the emergency room and was found to have a right middle lobe pneumonia. The patient denies having any chest pain associated with this. He did have his bladder surgery yesterday but has had some pain hematuria but no other complications. The patient had an episode of SVT and was treated with adenosine. The patient has a history of lung cancer and had resection with a left lower lobectomy in June of this year. He is a former smoker but has not smoked for many years. Patient denies any precipitating factor for the rapid heartbeat. He denied any prior history of syncope or near syncope. He describes previous episodes of rapid heartbeat. Patient has history of significant COPD. He has noted cough with hemoptysis and purulent sputum production. Patient denies any prior history of myocardial infarction or congestive heart failure. The above history was confirmed and supplemented. Patient was interviewed. Past Medical History Cardiac Medical History: Reports: Hyperlipidema, Hypertension Pulmonary Medical History: Reports: Chronic Obstructive Pulmonary Disease (COPD) EENT Medical History: Reports: None Neurological Medical History: Reports: None Endocrine Medical History: Reports: Diabetes Mellitus Type 1, Diabetes Mellitus Type 2 Renal/ Medical History: Reports: None Malignancy Medical History: Reports: Lung Cancer GI Medical History: Reports: Gastroesophageal Reflux Disease Psychiatric Medical History: Reports: Depression - years ago Hematology: Reports: None Past Surgical History Past Surgical History: Reports: Other - left thoracotomy, left lower lobectomy , Social History Information Source: Patient Lives with: Family Smoking Status: Former Smoker Last Time Smoked: 2008 Frequency of Alcohol Use: None Hx Recreational Drug Use: No Drugs: None Hx Prescription Drug Abuse: No - Advance Directive Resuscitation Status: Full Code Surrogate healthcare decision maker:: Patient's Family History Family History: Hyperlipidemia, Hypertension Parental Family History Reviewed: Yes Children Family History Reviewed: Yes Sibling(s) Family History Reviewed.: Yes Medication/Allergy Home Medications: Acetaminophen [Tylenol] 325 mg PO Q4 PRN 12/17/16 Aspirin [Aspirin 325 mg Tablet] 325 mg PO DAILY 12/17/16 Cholecalciferol (Vitamin D3) [Vitamin D3 1000 Unit Tablet] 1,000 unit PO DAILY 12/17/16 Hydrochlorothiazide 25 mg PO DAILY 12/17/16 Insulin Aspart [Novolog Insulin (Aspart) 100 unit/mL] 0 units SQ .PUMP 12/17/16 Mirtazapine [Remeron 15 mg Tablet] 7.5 mg PO QHS 12/17/16 Multivitamin [Multivitamins] 1 cap PO DAILY 12/17/16 Sertraline HCl [Zoloft] 150 mg PO QHS 12/17/16 Trazodone HCl [Desyrel] 150 mg PO QHS 12/17/16 Allergies/Adverse Reactions: divalproex sodium [From Depakote] Allergy (Verified 09/07/16 13:36) codeine Adverse Reaction (Verified 09/07/16 13:36) Review of Systems Review of Systems: Please see history of present illness and past medical history as wall. Constitutional: No fever or chills reported. Head : No recent chronic headaches, recent head injury. Eyes: No recent eye pain, diplopia, redness, discharge, acute visual changes. Ears: No recent chronic ear pain, acute hearing loss, ear discharge. Oral cavity: No recent ulcerations, bleeding, oral cavity discomfort. Neck: No recent acute neck pain reported. Hematologic: No recent easy bruising or bleeding or hematologic malignancy reported. Lymphatic: No recent lymphatic malignancy, chronic lymphadenopathy reported yet Cardiovascular system review: See history of present illness. Palpitations present. Respiratory system review: Recent hemoptysis, purulent sputum production noted. Patient has a long history of COPD and lung problem. Status post partial lobectomy on the left side for lung cancer. Mild Shortness of breath on exertion Gastrointestinal system review: Negative for any recent acute or chronic abdominal pain, hematemesis, melena, recent change in bowel habits. Genitourinary system review: No recent acute or chronic hematuria, flank pain, UTI etc. reported. Skin system review: Negative for any recent abnormal bruising, no rash, no pruritus reported. Neurologic: No prior history of strokes, mini strokes, seizure disorder. Psychologic: No history of major psychosis or major depression reported. Musculoskeletal: Minor aches and pains reported. No acute joint swelling reported. Endocrine: No recent polyuria, polydipsia, recent heat or cold intolerance. Physical Exam Vital Signs: Temp Pulse Resp BP Pulse Ox 98.6 F 102 H 22 H 156/45 H 90 L 12/18/16 07:12 12/18/16 09:00 12/18/16 07:12 12/18/16 09:00 12/18/16 07:12 Intake & Output 12/17/16 12/18/16 12/19/16 06:59 06:59 06:59 Intake Total 3872 Output Total 3000 Balance 872 Weight 89.81 kg Exam: GENERAL: well-nourished and in no acute distress. Alert and oriented x3 HEAD: Atraumatic, normocephalic. EYES: Pupils equal round and reactive to light, extraocular movements intact, sclera anicteric, conjunctiva are normal. ENT: TMs normal, nares patent, oropharynx clear without exudates. Moist mucous membranes. No oral ulcerations or bleeding gums noted NECK: supple without lymphadenopathy. Trachea is central. No cervical or axillary lymphadenopathy noted. Carotids are 2+, JVD WNL LUNGS: Respiration seems nonlabored, no significant accessory muscle action noted. Shows dullness and diminished breath sounds left base. Bilateral coarse crackles noted right more than left. CHEST: Palpation of the chest wall shows no significant chest wall tenderness. No other significant abnormalities noted. HEART: [place] CUPOLA MELTER, No PSH, 1/6 JENNIFER aortic area, 1/6 gimenez systolic murmur mitral area, no rubs, no gallops. ABDOMEN: Soft, no significant tenderness appreciated, normoactive bowel sounds. No guarding, no rebound. No rigidity noted . No masses appreciated. EXTREMITIES: Pedal pulses are 1-2+, no calf tenderness noted. No clubbing or cyanosis. 1+ pedal edema noted NEUROLOGICAL: Focused neurological exam showed no significant neurologic deficit. Normal speech, no focal weakness appreciated. PSYCH: Normal mood, normal affect. Judgment and insight within normal limits. SKIN: No significant ecchymosis, rash, ulcerations or signs of pruritus noted. MUSCULOSKELETAL EXAM: No significant joint swelling noted. Results Laboratory Results: 12/18/16 03:10 12/18/16 03:10 12/17/16 12/18/16 12/18/16 20:55 03:10 03:10 WBC 9.7 RBC 3.68 L Hgb 10.4 L D Hct 32.0 L MCV 87 MCH 28.3 MCHC 32.5 RDW 18.1 H Plt Count 171 Seg Neutrophils % Not Reportable Lymphocytes % Not Reportable Monocytes % Not Reportable Eosinophils % Not Reportable Basophils % Not Reportable Absolute Neutrophils Not Reportable Absolute Lymphocytes Not Reportable Absolute Monocytes Not Reportable Absolute Eosinophils Not Reportable Absolute Basophils Not Reportable Sodium 139.7 138.8 Potassium 4.3 4.0 Chloride 106 110 H Carbon Dioxide 23 22 Anion Gap 11 7 BUN 22 H 23 H Creatinine 1.09 0.93 Est GFR ( Amer) > 60 > 60 Est GFR (Non-Af Amer) > 60 > 60 Glucose 259 H 261 H Calcium 8.2 L 8.1 L Magnesium 2.0 12/17/16 12/17/16 12/18/16 20:55 20:55 03:10 Creatine Kinase 98 108 CK-MB (CK-2) 1.76 Troponin I 0.019 12/18/16 12/18/16 03:10 09:35 Creatine Kinase 99 CK-MB (CK-2) 1.73 Troponin I 0.023 EKG Comments: Supraventricular tachycardia noted with ST segment depression most likely rate related but cannot rule out underlying CAD. Rhythm strip shows SVT and sinus rhythm no significant ventricular tachyarrhythmias noted. Impressions: Chest X-Ray 12/17/16 05:43 IMPRESSION: STABLE SURGICAL CHANGES. INFILTRATE IN THE RIGHT LOWER LOBE SUSPICIOUS FOR PNEUMONIA. Abdomen/Pelvis CT 12/17/16 06:17 IMPRESSION: 1. IRREGULAR BLADDER WALL THICKENING, PRESUMABLY RELATED TO THE RECENT SURGICAL PROCEDURE. 2. RELATIVE THICKENING OF THE WALL OF THE DESCENDING AND SIGMOID COLON. THIS COULD BE ARTIFACT DUE TO POOR DISTENTION OR COULD BE RELATED TO INFLAMMATION. 3. NO OTHER SIGNIFICANT OR ACUTE FINDING IN THE ABDOMEN OR PELVIS ON CT SCAN WITH IV CONTRAST. Chest/Abdomen CTA 12/17/16 06:17 IMPRESSION: 1. NORMAL CTA OF THE CHEST. NO PULMONARY EMBOLI. 2. EXTENSIVE INFILTRATE IN THE RIGHT LUNG CONSISTENT WITH PNEUMONIA. 3. COPD WITH CHRONIC SCARRING. SURGICAL CHANGES. Assessment & Plan - Diagnosis (1) COPD (chronic obstructive pulmonary disease) Qualifiers: COPD type: unspecified COPD Qualified Code(s): J44.9 - Chronic obstructive pulmonary disease, unspecified Is this a current diagnosis for this admission?: Yes (2) Paroxysmal SVT (supraventricular tachycardia) Is this a current diagnosis for this admission?: Yes (3) Pneumonia Qualifiers: Pneumonia type: due to unspecified organism Laterality: right Lung location: unspecified part of lung Qualified Code(s): J18.9 - Pneumonia, unspecified organism Is this a current diagnosis for this admission?: Yes (4) Hypertension Qualifiers: Hypertension type: essential hypertension Qualified Code(s): I10 - Essential (primary) hypertension Is this a current diagnosis for this admission?: Yes - Notes Notes: Supraventricular tachycardia: Most likely precipitated by pneumonia and COPD exacerbation. Recommend 2D echo will order 2D echo. Agree with Cardizem drip for the time being. Will switch to p.o. Cardizem. Treatment of primary condition, COPD and pneumonia might help reduce recurrence. COPD exacerbation: Most likely related to pneumonia. Continue antibiotics, bronchodilators and steroid therapy as needed. Pneumonia: Patient noted to have right middle lobe and right lower lobe pneumonia. Patient is also status post lobectomy on the left side. Patient has poor pulmonary reserve. Continue aggressive antibiotic therapy. Hypertension: Blood pressure in the reasonable control. Continue with current management plans. - Time Time Spent: 30 to 50 Minutes - CODE STATUS was discussed, patient remains full code. Surrogate decision-maker unchanged. Multiple medical problems were addressed. More than 50% of the time spent coordinating care, discussing management plans with involved caregivers. Management plans discussed with involved personnels. Medical decision making was of moderate to high complexity , patient's has multiple comorbidities. Medications reviewed and adjusted accordingly: Yes
[2016-12-18] MEDS ORDERED: DILTIAZEM HCL 120 MG CAP.SR.24H PO ONE (11:00)
--- NOTE | 2016-12-18 11:51 | PDOC PROGRESS REPORT ---
Subjective Progress Note for:: 12/18/16 Subjective:: Patient had an episode of SVT last night. Patient reports his breathing is slightly worse. Physical Exam Vital Signs: Temp Pulse Resp BP Pulse Ox 98.6 F 91 19 144/60 H 90 L 12/18/16 07:12 12/18/16 11:00 12/18/16 08:05 12/18/16 11:00 12/18/16 07:12 Intake & Output 12/17/16 12/18/16 12/19/16 06:59 06:59 06:59 Intake Total 3872 Output Total 3000 Balance 872 Weight 89.81 kg General appearance: PRESENT: no acute distress Eye exam: PRESENT: conjunctiva pink. ABSENT: scleral icterus Mouth exam: PRESENT: moist, tongue midline Neck exam: ABSENT: JVD Respiratory exam: PRESENT: decreased breath sounds, rhonchi - Rhonchi on the right. ABSENT: rales, wheezes Cardiovascular exam: PRESENT: RRR. ABSENT: diastolic murmur, rubs, systolic murmur GI/Abdominal exam: PRESENT: normal bowel sounds, soft. ABSENT: distended, guarding, mass, organolmegaly, rebound, tenderness Extremities exam: ABSENT: calf tenderness, clubbing, pedal edema Neurological exam: PRESENT: alert, awake, oriented to person, oriented to place , oriented to time, oriented to situation, CN II-XII grossly intact. ABSENT: motor sensory deficit Psychiatric exam: PRESENT: appropriate affect Skin exam: PRESENT: dry, intact, warm. ABSENT: cyanosis, rash Results Laboratory Results: 12/18/16 03:10 12/18/16 03:10 12/17/16 12/18/16 12/18/16 20:55 03:10 03:10 WBC 9.7 RBC 3.68 L Hgb 10.4 L D Hct 32.0 L MCV 87 MCH 28.3 MCHC 32.5 RDW 18.1 H Plt Count 171 Seg Neutrophils % Not Reportable Lymphocytes % Not Reportable Monocytes % Not Reportable Eosinophils % Not Reportable Basophils % Not Reportable Absolute Neutrophils Not Reportable Absolute Lymphocytes Not Reportable Absolute Monocytes Not Reportable Absolute Eosinophils Not Reportable Absolute Basophils Not Reportable Sodium 139.7 138.8 Potassium 4.3 4.0 Chloride 106 110 H Carbon Dioxide 23 22 Anion Gap 11 7 BUN 22 H 23 H Creatinine 1.09 0.93 Est GFR ( Amer) > 60 > 60 Est GFR (Non-Af Amer) > 60 > 60 Glucose 259 H 261 H Calcium 8.2 L 8.1 L Magnesium 2.0 12/17/16 12/17/16 12/18/16 20:55 20:55 03:10 Creatine Kinase 98 108 CK-MB (CK-2) 1.76 Troponin I 0.019 12/18/16 12/18/16 12/18/16 03:10 09:35 09:35 Creatine Kinase 99 CK-MB (CK-2) 1.73 1.65 Troponin I 0.023 0.022 Impressions: Chest X-Ray 12/17/16 05:43 IMPRESSION: STABLE SURGICAL CHANGES. INFILTRATE IN THE RIGHT LOWER LOBE SUSPICIOUS FOR PNEUMONIA. Abdomen/Pelvis CT 12/17/16 06:17 IMPRESSION: 1. IRREGULAR BLADDER WALL THICKENING, PRESUMABLY RELATED TO THE RECENT SURGICAL PROCEDURE. 2. RELATIVE THICKENING OF THE WALL OF THE DESCENDING AND SIGMOID COLON. THIS COULD BE ARTIFACT DUE TO POOR DISTENTION OR COULD BE RELATED TO INFLAMMATION. 3. NO OTHER SIGNIFICANT OR ACUTE FINDING IN THE ABDOMEN OR PELVIS ON CT SCAN WITH IV CONTRAST. Chest/Abdomen CTA 12/17/16 06:17 IMPRESSION: 1. NORMAL CTA OF THE CHEST. NO PULMONARY EMBOLI. 2. EXTENSIVE INFILTRATE IN THE RIGHT LUNG CONSISTENT WITH PNEUMONIA. 3. COPD WITH CHRONIC SCARRING. SURGICAL CHANGES. Assessment & Plan - Diagnosis (1) Pneumonia Qualifiers: Pneumonia type: due to unspecified organism Laterality: right Lung location: unspecified part of lung Qualified Code(s): J18.9 - Pneumonia, unspecified organism Is this a current diagnosis for this admission?: YesPlan: This most likely is aspiration pneumonia. The patient is on Levaquin IV and given oxygen, nebulizers, fluids. He does have a history of having lung cancer and having a left lower lobectomy. No evidence for recurrence on chest x-ray. (2) COPD (chronic obstructive pulmonary disease) Qualifiers: COPD type: unspecified COPD Qualified Code(s): J44.9 - Chronic obstructive pulmonary disease, unspecified Is this a current diagnosis for this admission?: YesPlan: The patient is a former smoker. Patient will be put on nebulizers and oxygen. (3) Hypertension Qualifiers: Hypertension type: essential hypertension Qualified Code(s): I10 - Essential (primary) hypertension Is this a current diagnosis for this admission?: YesPlan: His blood pressure is stable currently. (4) Hyperlipidemia Is this a current diagnosis for this admission?: YesPlan: Continue with Zocor. (5) Bladder cancer Qualifiers: Bladder location: unspecified site Qualified Code(s): C67.9 - Malignant neoplasm of bladder, unspecified Is this a current diagnosis for this admission?: YesPlan: Had a TURB done Friday at the [facility] in [place]. We will continue to monitor closely. No evidence for obstruction. 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 We will check his fingerstick blood sugars and have him adjust his pump based on the blood sugar results. (7) Lung cancer, lower lobe Qualifiers: Laterality: left Qualified Code(s): C34.32 - Malignant neoplasm of lower lobe, left bronchus or lung Is this a current diagnosis for this admission?: YesPlan: Patient had a left lower lobectomy in June of this year. No evidence for recurrence on chest x-ray. (8) Supraventricular tachycardia Is this a current diagnosis for this admission?: YesPlan: Patient episodes of SVT last night. Was given IV diltiazem but now is currently on p.o. diltiazem. Cardiology is following. - Time Time Spent with patient: 25-34 minutes - Inpatient Certification Medical Necessity: Need Close Monitoring Due to Risk of Patient Decompensation, Need for IV Antibiotics
[2016-12-18] MEDS ORDERED: ONDANSETRON HCL INJ/PF 4 MG/2 ML SDV IV PRN (13:10)
[2016-12-18] MEDS ORDERED: ONDANSETRON HCL INJ/PF 4 MG/2 ML SDV ONE (13:30)
[2016-12-18] MEDS: KETOROLAC TROMETHAMINE INJ/PF 30 MG/1 ML SDV IV PRN (13:39)
[2016-12-18] MEDS ORDERED: DILTIAZEM HCL INJ 25 MG/5 ML VIAL IV ONE (15:00)
--- NOTE | 2016-12-18 19:31 | XCELERA REPORT ---
[address] [address] Transthoracic Echocardiogram Report Name: LITA LANG Age: 71 yrs Gender: Male : 1945 Patient Status: Inpatient Patient Location: [id number] Study Date: 12/18/2016 01:44 PM Height: 72 in Weight: 197 lb BSA: 2.1 m2 Procedure: A complete two-dimensional transthoracic echocardiogram was performed (2D, M-mode, spectral and color flow Doppler). The study was technically difficult with many images being suboptimal in quality. Reason For Study: SVT Ordering Physician: LISA LINDER Performed By: Christin Oliva Interpretation Summary The study was technically difficult with many images being suboptimal in quality. The left ventricular ejection fraction is normal. Doppler measurements suggest impaired left ventricular relaxation, which is associated with grade I/IV or mild diastolic dysfunction There is borderline concentric left ventricular hypertrophy. The left ventricle is grossly normal size. Wall motion cannot be accurately commented on, but no definite regional wall motion abnormalities noted. The right ventricle is mildly dilated. The right ventricle appears to be hypertrophied The right ventricular systolic function is normal. The right atrium is mildly dilated. The left atrial size is normal. There is a trace amount of mitral regurgitation There is no mitral valve stenosis. No aortic regurgitation is present. There is no aortic valve stenosis There is a trace to mild amount of tricuspid regurgitation There is mild pulmonary hypertension by echo Right ventricular systolic pressure is estimated to be elevated at 40- 50mmHg. The aortic root is not well visualized. The inferior vena cava appeared normal and decreased > 50% with respiration (RAP 5-10 mmHg) There is no pericardial effusion. MMode/2D Measurements \T\ Calculations RVDd: 3.7 cm LVIDd: 5.0 cmFS: 53.0 % Ao root diam: 3.0 cm IVSd: 1.0 cm LVIDs: 2.4 cmEDV(Teich): 118.7 ml LVPWd: 1.0 cmESV(Teich): 19.2 ml Ao root area: 7.2 cm2 EF(Teich): 83.8 % LA dimension: 3.5 cm LVOT diam: 2.1 cm LVOT area: 3.3 cm2 Doppler Measurements \T\ Calculations MV E max alonzo: MV P1/2t max alonzo: Ao V2 max: LV V1 max P.3 cm/sec 109.7 cm/sec 165.6 cm/sec 9.8 mmHg MV A max alonzo: MV P1/2t: 61.5 msec Ao max PG: LV V1 max: 108.0 cm/sec MVA(P1/2t): 3.6 cm2 11.0 mmHg 156.3 cm/sec MV E/A: 1.0 MV dec slope: ANI(V,D): 3.2 cm2 522.7 cm/sec2 PA V2 max: TR max alonzo: 120.6 cm/sec 295.9 cm/sec PA max PG: TR max P.0 mmHg 5.8 mmHg Left Ventricle The left ventricle is grossly normal size. There is borderline concentric left ventricular hypertrophy. The left ventricular ejection fraction is normal. Doppler measurements suggest impaired left ventricular relaxation, which is associated with grade I/IV or mild diastolic dysfunction. Wall motion cannot be accurately commented on, but no definite regional wall motion abnormalities noted. Right Ventricle The right ventricle is mildly dilated. The right ventricle appears to be hypertrophied. The right ventricular systolic function is normal. Atria The right atrium is mildly dilated. The left atrial size is normal. Interarterial septum not well visualized and not well dopplered. Cannot comment on ASD/PFO presence. Mitral Valve The mitral valve is grossly normal. There is no mitral valve stenosis. There is a trace amount of mitral regurgitation. Aortic Valve The aortic valve is not well visualized secondary to technical limitations. There is no aortic valve stenosis. No aortic regurgitation is present. Tricuspid Valve The tricuspid valve is not well visualized secondary to technical limitations. There is no tricuspid stenosis. There is a trace to mild amount of tricuspid regurgitation. There is mild pulmonary hypertension by echo. Right ventricular systolic pressure is estimated to be elevated at 40-50mmHg. Pulmonic Valve The pulmonic valve is not well visualized. Great Vessels The aortic root is not well visualized. The inferior vena cava appeared normal and decreased > 50% with respiration (RAP 5-10 mmHg). Effusions There is no pericardial effusion. : LISA LINDER > Lisa Linder
[2016-12-18] MEDS: MIRTAZAPINE 15 MG TABLET PO SCH (21:19)
[2016-12-18] MEDS: DILTIAZEM HCL 120 MG CAP.SR.24H PO SCH (21:20)
[2016-12-18] MEDS: SERTRALINE HCL 50 MG TABLET PO SCH (21:20)
[2016-12-18] MEDS: TRAZODONE HCL 50 MG TABLET PO SCH (21:21)
[2016-12-18] MEDS ORDERED: (PENDING PHARMACY ID) (Trazodone Hcl [Desyrel] 150 MG) PO SCH (22:00)
[2016-12-18] MEDS ORDERED: INSULIN LISPRO 100 UNIT/ML 3 ML VIAL SUBCUT PRN (22:16)
[2016-12-18] MEDS ORDERED: DEXTROSE 40% GEL 15 GM TUBE X 2 PO PRN (22:18)
[2016-12-18] MEDS ORDERED: DEXTROSE 50%-WATER SYRINGE 25 GM/50 ML DOSE IV PRN (22:18)
[2016-12-18] MEDS ORDERED: GLUCAGON,HUMAN RECOMB 1 MG INJ IM PRN (22:18)
[2016-12-18] MEDS ORDERED: DEXTROSE 50%-WATER SYRINGE 12.5 GM/25 ML DOSE IV PRN (22:18)
[2016-12-18] MEDS ORDERED: DEXTROSE 40% GEL 15 GM TUBE PO PRN (22:18)
[2016-12-19] MEDS: IPRATROPIUM/ALBUTEROL 0.5-2.5 MG/3 ML AMPUL NEB SCH ×4 (02:43→20:12)
[2016-12-19] MEDS: NORMAL SALINE 1000 ML 1,000 ML IV PRN (03:16)
[2016-12-19 06:38] LABS: ANION GAP 14 (5-19); BLOOD UREA NITROGEN 21 mg/dL (7-20); CALCIUM 8.2 mg/dL (8.4-10.2); CARBON DIOXIDE 16 mmol/L (22-30); CHLORIDE 108 mmol/L (98-107); CREATININE RESULT 0.81 mg/dL (0.52-1.25); GLUCOSE 309 mg/dL (75-110); POTASSIUM 4.2 mmol/L (3.6-5.0); SODIUM 138.2 mmol/L (137-145)
[2016-12-19 06:39] LABS: HEMATOCRIT 31.1 % (37.9-51.0); HEMOGLOBIN 10.1 g/dL (13.5-17.0); HGB HCT DIFFERENCE -0.8; MEAN CORPUSCULAR HEMOGLOBIN 28.6 pg (27.0-33.4); MEAN CORPUSCULAR HGB CONC 32.5 g/dL (32.0-36.0); MEAN CORPUSCULAR VOLUME 88 fl (80-97); RED BLOOD COUNT 3.53 10^6/uL (4.35-5.55); RED CELL DISTRIBUTION WIDTH 18.5 % (11.5-14.0); WHITE BLOOD COUNT 10.9 10^3/uL (4.0-10.5)
[2016-12-19 06:56] LABS: ANISOCYTOSIS 2+; BASOPHILS % (MANUAL) 0 % (0-2); EOSINOPHILS % (MANUAL) 0 % (0-6); LYMPHOCYTES % (MANUAL) 5 % (13-45); TOTAL CELLS COUNTED 100
[2016-12-19] MEDS ORDERED: LEVALBUTEROL HCL NEB 1.25 MG/3 ML AMPUL NEB PRN (07:46)
[2016-12-19] MEDS ORDERED: (PENDING PHARMACY ID) (Multivitamin [Multivitamins] 1 CAP) PO SCH (10:00)
[2016-12-19] MEDS ORDERED: FUROSEMIDE INJ/PF 20 MG/2 ML SDV IV ONE (10:45)
[2016-12-19] MEDS: CHOLECALCIFEROL (D3) 1,000 UNIT TABLET PO SCH (11:16)
[2016-12-19] MEDS: FAMOTIDINE 20 MG TABLET PO SCH ×2 (11:16→21:18)
[2016-12-19] MEDS: LEVOFLOXACIN 750 MG/D5W RTU 150 ML IV SCH (11:16)
[2016-12-19] MEDS: ENOXAPARIN SODIUM INJ 40 MG/0.4 ML DISP.SYRIN SUBCUT SCH (11:16)
[2016-12-19] MEDS: ASPIRIN 325 MG TABLET PO SCH (11:16)
[2016-12-19] MEDS: MULTIVITAMIN TABLET PO SCH (11:16)
[2016-12-19] MEDS: KETOROLAC TROMETHAMINE INJ/PF 30 MG/1 ML SDV IV PRN ×2 (11:18→21:19)
--- NOTE | 2016-12-19 11:18 | PDOC PROGRESS REPORT ---
Subjective Progress Note for:: 12/19/16 Subjective:: Patient has had worsening shortness of breath. He appears to have some volume overload on exam today with some basilar rales. Physical Exam Vital Signs: Temp Pulse Resp BP Pulse Ox 99.0 F 105 H 24 H 173/56 H 96 12/18/16 23:18 12/19/16 08:30 12/19/16 08:30 12/19/16 06:08 12/19/16 08:30 Intake & Output 12/18/16 12/19/16 12/20/16 06:59 06:59 06:59 Intake Total 3872 2720 Output Total 3000 2850 Balance 872 -130 Weight 89.81 kg 89.5 kg General appearance: PRESENT: mild distress Eye exam: PRESENT: conjunctiva pink. ABSENT: scleral icterus Mouth exam: PRESENT: moist, tongue midline Neck exam: ABSENT: JVD Respiratory exam: PRESENT: rales - Bibasilar Rales. ABSENT: rhonchi, wheezes Cardiovascular exam: PRESENT: RRR. ABSENT: diastolic murmur, rubs, systolic murmur GI/Abdominal exam: PRESENT: normal bowel sounds, soft. ABSENT: distended, guarding, mass, organolmegaly, rebound, tenderness Extremities exam: ABSENT: calf tenderness, clubbing, pedal edema Neurological exam: PRESENT: alert, awake, oriented to person, oriented to place , oriented to time, oriented to situation, CN II-XII grossly intact. ABSENT: motor sensory deficit Psychiatric exam: PRESENT: anxious Skin exam: PRESENT: dry, intact, warm. ABSENT: cyanosis, rash Results Laboratory Results: 12/19/16 05:20 12/19/16 05:20 12/19/16 12/19/16 05:20 05:20 WBC 10.9 H RBC 3.53 L Hgb 10.1 L Hct 31.1 L MCV 88 MCH 28.6 MCHC 32.5 RDW 18.5 H Plt Count 186 Seg Neutrophils % Not Reportable Lymphocytes % Not Reportable Monocytes % Not Reportable Eosinophils % Not Reportable Basophils % Not Reportable Absolute Neutrophils Not Reportable Absolute Lymphocytes Not Reportable Absolute Monocytes Not Reportable Absolute Eosinophils Not Reportable Absolute Basophils Not Reportable Sodium 138.2 Potassium 4.2 Chloride 108 H Carbon Dioxide 16 L Anion Gap 14 BUN 21 H Creatinine 0.81 Est GFR ( Amer) > 60 Est GFR (Non-Af Amer) > 60 Glucose 309 H Calcium 8.2 L 12/17/16 18:40 Sputum Gram Stain - Final 12/17/16 18:40 Sputum Sputum Culture - Final NORMAL LUZ MARINA 12/17/16 12/17/16 12/18/16 20:55 20:55 03:10 Creatine Kinase 98 108 CK-MB (CK-2) 1.76 Troponin I 0.019 NT-Pro-B Natriuret Pep 12/18/16 12/18/16 12/18/16 03:10 09:35 09:35 Creatine Kinase 99 CK-MB (CK-2) 1.73 1.65 Troponin I 0.023 0.022 NT-Pro-B Natriuret Pep 12/19/16 05:20 Creatine Kinase CK-MB (CK-2) Troponin I NT-Pro-B Natriuret Pep 6280 H Impressions: Chest X-Ray 12/17/16 05:43 IMPRESSION: STABLE SURGICAL CHANGES. INFILTRATE IN THE RIGHT LOWER LOBE SUSPICIOUS FOR PNEUMONIA. Abdomen/Pelvis CT 12/17/16 06:17 IMPRESSION: 1. IRREGULAR BLADDER WALL THICKENING, PRESUMABLY RELATED TO THE RECENT SURGICAL PROCEDURE. 2. RELATIVE THICKENING OF THE WALL OF THE DESCENDING AND SIGMOID COLON. THIS COULD BE ARTIFACT DUE TO POOR DISTENTION OR COULD BE RELATED TO INFLAMMATION. 3. NO OTHER SIGNIFICANT OR ACUTE FINDING IN THE ABDOMEN OR PELVIS ON CT SCAN WITH IV CONTRAST. Chest/Abdomen CTA 12/17/16 06:17 IMPRESSION: 1. NORMAL CTA OF THE CHEST. NO PULMONARY EMBOLI. 2. EXTENSIVE INFILTRATE IN THE RIGHT LUNG CONSISTENT WITH PNEUMONIA. 3. COPD WITH CHRONIC SCARRING. SURGICAL CHANGES. Assessment & Plan - Diagnosis (1) Pneumonia Qualifiers: Pneumonia type: due to unspecified organism Laterality: right Lung location: unspecified part of lung Qualified Code(s): J18.9 - Pneumonia, unspecified organism Is this a current diagnosis for this admission?: YesPlan: This most likely is aspiration pneumonia. The patient is on Levaquin IV and given oxygen, nebulizers. He is off the fluids as he appears to be volume overloaded currently. He does have a history of having lung cancer and having a left lower lobectomy. No evidence for recurrence on chest x-ray. (2) COPD (chronic obstructive pulmonary disease) Qualifiers: COPD type: unspecified COPD Qualified Code(s): J44.9 - Chronic obstructive pulmonary disease, unspecified Is this a current diagnosis for this admission?: YesPlan: The patient is a former smoker. Patient will be put on nebulizers and oxygen. (3) Hypertension Qualifiers: Hypertension type: essential hypertension Qualified Code(s): I10 - Essential (primary) hypertension Is this a current diagnosis for this admission?: YesPlan: His blood pressure is stable currently. (4) Hyperlipidemia Is this a current diagnosis for this admission?: YesPlan: Continue with Zocor. (5) Bladder cancer Qualifiers: Bladder location: unspecified site Qualified Code(s): C67.9 - Malignant neoplasm of bladder, unspecified Is this a current diagnosis for this admission?: YesPlan: Had a TURB done Friday at the [facility] in [place]. We will continue to monitor closely. No evidence for obstruction. 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 We will check his fingerstick blood sugars and have him adjust his pump based on the blood sugar results. (7) Lung cancer, lower lobe Qualifiers: Laterality: left Qualified Code(s): C34.32 - Malignant neoplasm of lower lobe, left bronchus or lung Is this a current diagnosis for this admission?: YesPlan: Patient had a left lower lobectomy in June of this year. No evidence for recurrence on chest x-ray. (8) Supraventricular tachycardia Is this a current diagnosis for this admission?: YesPlan: Patient episodes of SVT last night. Was given IV diltiazem but now is currently on p.o. diltiazem. Cardiology is following. (9) Congestive heart failure Is this a current diagnosis for this admission?: YesPlan: Patient has evidence for volume overload. Echocardiogram shows him to have diastolic dysfunction. Patient was given IV Lasix and fluids have been stopped. Will use BiPAP - Time Time Spent with patient: 25-34 minutes - Inpatient Certification Medical Necessity: Need Close Monitoring Due to Risk of Patient Decompensation, Need for IV Antibiotics
[2016-12-19] MEDS: HYDROCHLOROTHIAZIDE 25 MG TABLET PO SCH (11:20)
[2016-12-19] MEDS: DILTIAZEM HCL 120 MG CAP.SR.24H PO SCH ×2 (11:20→21:17)
--- NOTE | 2016-12-19 11:38 | Physician Advisory Note ---
Physician Advisor ProgressNote .: Pursuant to the plan for [facility], I have reviewed the medical record for this patient. Physician Advisor Statement: Please consider documentin. "Acute Diastolic CHF" 2. "Acute Hypoxemic Respiratory Failure requiring O2 & Bipap" (& document any time of increased work of breathing) Thanks! CK
--- NOTE | 2016-12-19 19:44 | PDOC PROGRESS REPORT ---
Subjective Progress Note for:: 12/19/16 Subjective:: Patient seems to be doing better with gradual improvement. Pt is denying any chest arm or neck discomfort. Patient still short of breath and was noted to be on bilevel therapy this morning. Patient was noted to be laying flat on the bed. Patient denying any PND, orthopnea. Patient denied any sustained palpitations, dizziness, syncope, near syncope. Patient denying any fever chills. Patient denying any other significant discomfort. Patient is maintaining sinus rhythm. Rhythm strip reviewed showed no further recurrence of SVT Review of systems: Rest review of systems negative. Medications: Medications have been reviewed. Physical Exam Vital Signs: Temp Pulse Resp BP Pulse Ox 98.3 F 76 18 138/65 H 93 12/19/16 15:43 12/19/16 18:00 12/19/16 15:43 12/19/16 18:01 12/19/16 15:43 Intake & Output 12/18/16 12/19/16 12/20/16 06:59 06:59 06:59 Intake Total 3872 2720 553 Output Total 3000 2850 1750 Balance 872 -130 -1197 Weight 89.81 kg 89.5 kg Exam: GENERAL: well-nourished and in no acute distress. Alert and oriented x3 HEAD: Atraumatic, normocephalic. EYES: Pupils equal round and reactive to light, extraocular movements intact, sclera anicteric, conjunctiva are normal. ENT: TMs normal, nares patent, oropharynx clear without exudates. Moist mucous membranes. No oral ulcerations or bleeding gums noted NECK: supple without lymphadenopathy. Trachea is central. No cervical or axillary lymphadenopathy noted. Carotids are 2+, JVD WNL LUNGS: Respiration seems nonlabored, no significant accessory muscle action noted. Bilateral crackles, right more than left and wheezes rales or rhonchi noted. No significant dullness noted on percussion. CHEST: Palpation of the chest wall shows no significant chest wall tenderness. No other significant abnormalities noted. HEART: Burns BUSHEL GIRL, No PSH, 1/6 JENNIFER aortic area, 1/6 gimenez systolic murmur mitral area, no rubs, no gallops. ABDOMEN: Soft, no significant tenderness appreciated, normoactive bowel sounds. No guarding, no rebound. No rigidity noted . No masses appreciated. EXTREMITIES: Pedal pulses are 1-2+, no calf tenderness noted. No clubbing or cyanosis. 1+ pedal edema noted NEUROLOGICAL: Focused neurological exam showed no significant neurologic deficit. Normal speech, no focal weakness appreciated. PSYCH: Normal mood, normal affect. Judgment and insight within normal limits. SKIN: No significant ecchymosis, rash, ulcerations or signs of pruritus noted. MUSCULOSKELETAL EXAM: No significant joint swelling noted. Results Laboratory Results: 12/19/16 05:20 12/19/16 05:20 12/19/16 12/19/16 05:20 05:20 WBC 10.9 H RBC 3.53 L Hgb 10.1 L Hct 31.1 L MCV 88 MCH 28.6 MCHC 32.5 RDW 18.5 H Plt Count 186 Seg Neutrophils % Not Reportable Lymphocytes % Not Reportable Monocytes % Not Reportable Eosinophils % Not Reportable Basophils % Not Reportable Absolute Neutrophils Not Reportable Absolute Lymphocytes Not Reportable Absolute Monocytes Not Reportable Absolute Eosinophils Not Reportable Absolute Basophils Not Reportable Sodium 138.2 Potassium 4.2 Chloride 108 H Carbon Dioxide 16 L Anion Gap 14 BUN 21 H Creatinine 0.81 Est GFR ( Amer) > 60 Est GFR (Non-Af Amer) > 60 Glucose 309 H Calcium 8.2 L 12/17/16 18:40 Sputum Gram Stain - Final 12/17/16 18:40 Sputum Sputum Culture - Final NORMAL LUZ MARINA 12/17/16 12/17/16 12/18/16 20:55 20:55 03:10 Creatine Kinase 98 108 CK-MB (CK-2) 1.76 Troponin I 0.019 NT-Pro-B Natriuret Pep 12/18/16 12/18/16 12/18/16 03:10 09:35 09:35 Creatine Kinase 99 CK-MB (CK-2) 1.73 1.65 Troponin I 0.023 0.022 NT-Pro-B Natriuret Pep 12/19/16 05:20 Creatine Kinase CK-MB (CK-2) Troponin I NT-Pro-B Natriuret Pep 6280 H Impressions: Chest X-Ray 12/17/16 05:43 IMPRESSION: STABLE SURGICAL CHANGES. INFILTRATE IN THE RIGHT LOWER LOBE SUSPICIOUS FOR PNEUMONIA. Abdomen/Pelvis CT 12/17/16 06:17 IMPRESSION: 1. IRREGULAR BLADDER WALL THICKENING, PRESUMABLY RELATED TO THE RECENT SURGICAL PROCEDURE. 2. RELATIVE THICKENING OF THE WALL OF THE DESCENDING AND SIGMOID COLON. THIS COULD BE ARTIFACT DUE TO POOR DISTENTION OR COULD BE RELATED TO INFLAMMATION. 3. NO OTHER SIGNIFICANT OR ACUTE FINDING IN THE ABDOMEN OR PELVIS ON CT SCAN WITH IV CONTRAST. Chest/Abdomen CTA 12/17/16 06:17 IMPRESSION: 1. NORMAL CTA OF THE CHEST. NO PULMONARY EMBOLI. 2. EXTENSIVE INFILTRATE IN THE RIGHT LUNG CONSISTENT WITH PNEUMONIA. 3. COPD WITH CHRONIC SCARRING. SURGICAL CHANGES. Assessment & Plan - Diagnosis (1) Paroxysmal SVT (supraventricular tachycardia) Is this a current diagnosis for this admission?: Yes (2) Congestive heart failure Qualifiers: Congestive heart failure type: diastolic Is this a current diagnosis for this admission?: Yes (3) COPD (chronic obstructive pulmonary disease) Qualifiers: COPD type: unspecified COPD Qualified Code(s): J44.9 - Chronic obstructive pulmonary disease, unspecified Is this a current diagnosis for this admission?: Yes (4) Pneumonia Qualifiers: Pneumonia type: due to unspecified organism Laterality: right Lung location: unspecified part of lung Qualified Code(s): J18.9 - Pneumonia, unspecified organism Is this a current diagnosis for this admission?: Yes (5) Hypertension Qualifiers: Hypertension type: essential hypertension Qualified Code(s): I10 - Essential (primary) hypertension Is this a current diagnosis for this admission?: Yes - Notes Notes: 2D echo results discussed with the patient. Ordered diuretic therapy. Previous labs, x-ray findings discussed. Supraventricular tachycardia: No further recurrence noted on current medication. Most likely precipitated by pneumonia and COPD exacerbation. 2D echo results reviewed with the patient. Agree with Cardiakiko toribio for the time being. Will switch to p.o. Cardizem. Treatment of primary condition, COPD and pneumonia might help reduce recurrence. Congestive heart failure: BNP level noted to be significantly elevated. Right ventricle is dilated. Feel that patient predominantly has right-sided heart failure with contribution from diastolic dysfunction. Will start patient on low -dose diuretic therapy. COPD exacerbation: Most likely related to pneumonia. Continue antibiotics, bronchodilators and steroid therapy as needed. Pneumonia: Patient noted to have right middle lobe and right lower lobe pneumonia. Patient is also status post lobectomy on the left side. Patient has poor pulmonary reserve. Continue aggressive antibiotic therapy. Hypertension: Blood pressure in the reasonable control. Continue with current management plans. - Time Time with patient: Greater than 35 minutes - CODE STATUS was discussed, patient remains full code. Surrogate decision-maker unchanged. Multiple medical problems were addressed. More than 50% of the time spent coordinating care, discussing management plans with involved caregivers. Management plans discussed with involved personnels. Medical decision making was of moderate to high complexity, patient's has multiple comorbidities.
[2016-12-19] MEDS: MIRTAZAPINE 15 MG TABLET PO SCH (21:16)
[2016-12-19] MEDS: TRAZODONE HCL 50 MG TABLET PO SCH (21:17)
[2016-12-19] MEDS: SERTRALINE HCL 50 MG TABLET PO SCH (21:18)
[2016-12-20] MEDS: ACETAMINOPHEN 325 MG TABLET PO PRN (01:00)
[2016-12-20] MEDS: ALBUTEROL SULFATE 0.083% NEB 2.5 MG/3 ML AMPUL NEB SCH ×4 (01:57→19:53)
[2016-12-20 04:55] LABS: ABSOLUTE LYMPHOCYTES (AUTO) 0.4 10^3/uL (0.5-4.7); ABSOLUTE MONOCYTES (AUTO) 0.5 10^3/uL (0.1-1.4); ABSOLUTE NEUT (AUTO) 7.8 10^3/uL (1.7-8.2); BASOPHILS % (AUTO) 0.3 % (0-2); EOSINOPHILS % (AUTO) 0.6 % (0-6); HEMATOCRIT 29.2 % (37.9-51.0); HEMOGLOBIN 9.7 g/dL (13.5-17.0); HGB HCT DIFFERENCE -0.1; LYMPHOCYTES % (AUTO) 5.1 % (13-45); MEAN CORPUSCULAR HEMOGLOBIN 28.6 pg (27.0-33.4); MEAN CORPUSCULAR HGB CONC 33.1 g/dL (32.0-36.0); MEAN CORPUSCULAR VOLUME 86 fl (80-97); MONOCYTES % (AUTO) 5.6 % (3-13); RED BLOOD COUNT 3.37 10^6/uL (4.35-5.55); RED CELL DISTRIBUTION WIDTH 17.8 % (11.5-14.0); SEGMENTED NEUTROPHILS % (AUTO) 88.4 % (42-78); WHITE BLOOD COUNT 8.8 10^3/uL (4.0-10.5)
[2016-12-20 05:16] LABS: ANION GAP 9 (5-19); BLOOD UREA NITROGEN 28 mg/dL (7-20); CALCIUM 8.6 mg/dL (8.4-10.2); CARBON DIOXIDE 25 mmol/L (22-30); CHLORIDE 106 mmol/L (98-107); CREATININE RESULT 0.91 mg/dL (0.52-1.25); GLUCOSE 212 mg/dL (75-110); POTASSIUM 3.6 mmol/L (3.6-5.0); SODIUM 140.4 mmol/L (137-145)
--- NOTE | 2016-12-20 10:27 | PDOC PROGRESS REPORT ---
Subjective Progress Note for:: 12/20/16 Subjective:: He is feeling much better with less shortness of breath. Physical Exam Vital Signs: Temp Pulse Resp BP Pulse Ox 98.2 F 91 28 H 157/60 H 98 12/20/16 08:00 12/20/16 08:00 12/20/16 08:00 12/20/16 08:00 12/20/16 08:00 Intake & Output 12/19/16 12/20/16 12/21/16 06:59 06:59 06:59 Intake Total 2720 893 Output Total 2850 2250 Balance -130 -1357 Weight 89.5 kg 89.3 kg General appearance: PRESENT: no acute distress Eye exam: PRESENT: conjunctiva pink. ABSENT: scleral icterus Ear exam: PRESENT: normal external ear exam Mouth exam: PRESENT: moist, tongue midline Neck exam: ABSENT: JVD Respiratory exam: PRESENT: rhonchi - Bilaterally.. ABSENT: rales, wheezes Cardiovascular exam: PRESENT: RRR. ABSENT: diastolic murmur, rubs, systolic murmur GI/Abdominal exam: PRESENT: normal bowel sounds, soft. ABSENT: distended, guarding, mass, organolmegaly, rebound, tenderness Extremities exam: ABSENT: calf tenderness, clubbing, pedal edema Neurological exam: PRESENT: alert, awake, oriented to person, oriented to place , oriented to time, oriented to situation, CN II-XII grossly intact. ABSENT: motor sensory deficit Psychiatric exam: PRESENT: appropriate affect Skin exam: PRESENT: dry, intact, warm. ABSENT: cyanosis, rash Results Laboratory Results: 12/20/16 04:01 12/20/16 04:01 12/20/16 12/20/16 04:01 04:01 WBC 8.8 RBC 3.37 L Hgb 9.7 L Hct 29.2 L MCV 86 MCH 28.6 MCHC 33.1 RDW 17.8 H Plt Count 202 Seg Neutrophils % 88.4 H Lymphocytes % 5.1 L Monocytes % 5.6 Eosinophils % 0.6 Basophils % 0.3 Absolute Neutrophils 7.8 Absolute Lymphocytes 0.4 L Absolute Monocytes 0.5 Absolute Eosinophils 0.0 Absolute Basophils 0.0 Sodium 140.4 Potassium 3.6 Chloride 106 Carbon Dioxide 25 Anion Gap 9 BUN 28 H Creatinine 0.91 Est GFR ( Amer) > 60 Est GFR (Non-Af Amer) > 60 Glucose 212 H Calcium 8.6 12/17/16 18:40 Sputum Gram Stain - Final 12/17/16 18:40 Sputum Sputum Culture - Final NORMAL LUZ MARINA 12/17/16 12/17/16 12/18/16 20:55 20:55 03:10 Creatine Kinase 98 108 CK-MB (CK-2) 1.76 Troponin I 0.019 NT-Pro-B Natriuret Pep 12/18/16 12/18/16 12/18/16 03:10 09:35 09:35 Creatine Kinase 99 CK-MB (CK-2) 1.73 1.65 Troponin I 0.023 0.022 NT-Pro-B Natriuret Pep 12/19/16 05:20 Creatine Kinase CK-MB (CK-2) Troponin I NT-Pro-B Natriuret Pep 6280 H Impressions: Chest X-Ray 12/17/16 05:43 IMPRESSION: STABLE SURGICAL CHANGES. INFILTRATE IN THE RIGHT LOWER LOBE SUSPICIOUS FOR PNEUMONIA. Abdomen/Pelvis CT 12/17/16 06:17 IMPRESSION: 1. IRREGULAR BLADDER WALL THICKENING, PRESUMABLY RELATED TO THE RECENT SURGICAL PROCEDURE. 2. RELATIVE THICKENING OF THE WALL OF THE DESCENDING AND SIGMOID COLON. THIS COULD BE ARTIFACT DUE TO POOR DISTENTION OR COULD BE RELATED TO INFLAMMATION. 3. NO OTHER SIGNIFICANT OR ACUTE FINDING IN THE ABDOMEN OR PELVIS ON CT SCAN WITH IV CONTRAST. Chest/Abdomen CTA 12/17/16 06:17 IMPRESSION: 1. NORMAL CTA OF THE CHEST. NO PULMONARY EMBOLI. 2. EXTENSIVE INFILTRATE IN THE RIGHT LUNG CONSISTENT WITH PNEUMONIA. 3. COPD WITH CHRONIC SCARRING. SURGICAL CHANGES. Assessment & Plan - Diagnosis (1) Pneumonia Qualifiers: Pneumonia type: due to unspecified organism Laterality: right Lung location: unspecified part of lung Qualified Code(s): J18.9 - Pneumonia, unspecified organism Is this a current diagnosis for this admission?: YesPlan: This most likely is aspiration pneumonia. The patient is on Levaquin IV and given oxygen, nebulizers. Overload has improved after getting the dose of Lasix. Continue with hydrochlorothiazide. He does have a history of having lung cancer and having a left lower lobectomy. No evidence for recurrence on chest x-ray. (2) COPD (chronic obstructive pulmonary disease) Qualifiers: COPD type: unspecified COPD Qualified Code(s): J44.9 - Chronic obstructive pulmonary disease, unspecified Is this a current diagnosis for this admission?: YesPlan: The patient is a former smoker. Patient is on nebulizers and oxygen. (3) Hypertension Qualifiers: Hypertension type: essential hypertension Qualified Code(s): I10 - Essential (primary) hypertension Is this a current diagnosis for this admission?: YesPlan: His blood pressure is stable currently. (4) Hyperlipidemia Is this a current diagnosis for this admission?: YesPlan: Continue with Zocor. (5) Bladder cancer Qualifiers: Bladder location: unspecified site Qualified Code(s): C67.9 - Malignant neoplasm of bladder, unspecified Is this a current diagnosis for this admission?: YesPlan: Had a TURB done Friday at the [facility] in [place]. We will continue to monitor closely. No evidence for obstruction. 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 We will check his fingerstick blood sugars and have him adjust his pump based on the blood sugar results. (7) Lung cancer, lower lobe Qualifiers: Laterality: left Qualified Code(s): C34.32 - Malignant neoplasm of lower lobe, left bronchus or lung Is this a current diagnosis for this admission?: YesPlan: Patient had a left lower lobectomy in June of this year. No evidence for recurrence on chest x-ray. (8) Supraventricular tachycardia Is this a current diagnosis for this admission?: YesPlan: Cardiology is following. (9) Congestive heart failure Is this a current diagnosis for this admission?: YesPlan: Echocardiogram shows him to have diastolic dysfunction. Patient was given IV Lasix and fluids have been stopped. Continue hydrochlorothiazide. - Time Time Spent with patient: 25-34 minutes - Inpatient Certification Medical Necessity: Need Close Monitoring Due to Risk of Patient Decompensation, Need for IV Antibiotics
[2016-12-20] MEDS: LEVOFLOXACIN 750 MG/D5W RTU 150 ML IV SCH (10:32)
[2016-12-20] MEDS: CHOLECALCIFEROL (D3) 1,000 UNIT TABLET PO SCH (10:32)
[2016-12-20] MEDS: ENOXAPARIN SODIUM INJ 40 MG/0.4 ML DISP.SYRIN SUBCUT SCH (10:32)
[2016-12-20] MEDS: FAMOTIDINE 20 MG TABLET PO SCH ×2 (10:33→21:26)
[2016-12-20] MEDS: MULTIVITAMIN TABLET PO SCH (10:33)
[2016-12-20] MEDS: DILTIAZEM HCL 120 MG CAP.SR.24H PO SCH ×2 (10:33→21:25)
[2016-12-20] MEDS: ASPIRIN 325 MG TABLET PO SCH (10:33)
[2016-12-20] MEDS: HYDROCHLOROTHIAZIDE 25 MG TABLET PO SCH (10:33)
[2016-12-20] MEDS: KETOROLAC TROMETHAMINE INJ/PF 30 MG/1 ML SDV IV PRN (16:04)
--- NOTE | 2016-12-20 19:28 | PDOC PROGRESS REPORT ---
Subjective Progress Note for:: 12/20/16 Subjective:: Patient seems to be doing better with gradual improvement. Pt is denying any chest arm or neck discomfort. Patient still short of breath and was noted to be on bilevel therapy this morning. Patient noted to be sitting in bed comfortable. Patient denying any PND, orthopnea. Patient denied any sustained palpitations, dizziness, syncope, near syncope. Patient denying any fever chills. Patient denying any other significant discomfort. Patient on nightly bilevel therapy. He is on oxygen supplementation. Breathing is better today as a whole patient also feels better. Patient is maintaining sinus rhythm. Rhythm strip reviewed showed no further recurrence of SVT Review of systems: Rest review of systems negative. Medications: Medications have been reviewed. Physical Exam Vital Signs: Temp Pulse Resp BP Pulse Ox 99.2 F 93 18 134/56 H 92 12/20/16 11:36 12/20/16 18:48 12/20/16 14:09 12/20/16 13:01 12/20/16 15:33 Intake & Output 12/19/16 12/20/16 12/21/16 06:59 06:59 06:59 Intake Total 2720 893 504 Output Total 2850 2250 700 Balance -130 -1357 -196 Weight 89.5 kg 89.3 kg Exam: GENERAL: well-nourished and in no acute distress. Alert and oriented x3 HEAD: Atraumatic, normocephalic. EYES: Pupils equal round and reactive to light, extraocular movements intact, sclera anicteric, conjunctiva are normal. ENT: TMs normal, nares patent, oropharynx clear without exudates. Moist mucous membranes. No oral ulcerations or bleeding gums noted NECK: supple without lymphadenopathy. Trachea is central. No cervical or axillary lymphadenopathy noted. Carotids are 2+, JVD WNL LUNGS: Respiration seems nonlabored, no significant accessory muscle action noted. Breath sounds shows bilateral basal wheezes rales or rhonchi noted. No significant dullness noted on percussion. CHEST: Palpation of the chest wall shows no significant chest wall tenderness. No other significant abnormalities noted. HEART: [place] [employer], No PSH, 1/6 JENNIFER aortic area, 1/6 gimenez systolic murmur mitral area, no rubs, no gallops. ABDOMEN: Soft, no significant tenderness appreciated, normoactive bowel sounds. No guarding, no rebound. No rigidity noted . No masses appreciated. EXTREMITIES: Pedal pulses are 1-2+, no calf tenderness noted. No clubbing or cyanosis.trace to 1+ pedal edema noted NEUROLOGICAL: Focused neurological exam showed no significant neurologic deficit. Normal speech, no focal weakness appreciated. PSYCH: Normal mood, normal affect. Judgment and insight within normal limits. SKIN: No significant ecchymosis, rash, ulcerations or signs of pruritus noted. MUSCULOSKELETAL EXAM: No significant joint swelling noted. Results Laboratory Results: 12/20/16 04:01 12/20/16 04:01 12/20/16 12/20/16 04:01 04:01 WBC 8.8 RBC 3.37 L Hgb 9.7 L Hct 29.2 L MCV 86 MCH 28.6 MCHC 33.1 RDW 17.8 H Plt Count 202 Seg Neutrophils % 88.4 H Lymphocytes % 5.1 L Monocytes % 5.6 Eosinophils % 0.6 Basophils % 0.3 Absolute Neutrophils 7.8 Absolute Lymphocytes 0.4 L Absolute Monocytes 0.5 Absolute Eosinophils 0.0 Absolute Basophils 0.0 Sodium 140.4 Potassium 3.6 Chloride 106 Carbon Dioxide 25 Anion Gap 9 BUN 28 H Creatinine 0.91 Est GFR ( Amer) > 60 Est GFR (Non-Af Amer) > 60 Glucose 212 H Calcium 8.6 12/17/16 12/17/16 12/18/16 20:55 20:55 03:10 Creatine Kinase 98 108 CK-MB (CK-2) 1.76 Troponin I 0.019 NT-Pro-B Natriuret Pep 12/18/16 12/18/16 12/18/16 03:10 09:35 09:35 Creatine Kinase 99 CK-MB (CK-2) 1.73 1.65 Troponin I 0.023 0.022 NT-Pro-B Natriuret Pep 12/19/16 05:20 Creatine Kinase CK-MB (CK-2) Troponin I NT-Pro-B Natriuret Pep 6280 H Impressions: Chest X-Ray 12/17/16 05:43 IMPRESSION: STABLE SURGICAL CHANGES. INFILTRATE IN THE RIGHT LOWER LOBE SUSPICIOUS FOR PNEUMONIA. Abdomen/Pelvis CT 12/17/16 06:17 IMPRESSION: 1. IRREGULAR BLADDER WALL THICKENING, PRESUMABLY RELATED TO THE RECENT SURGICAL PROCEDURE. 2. RELATIVE THICKENING OF THE WALL OF THE DESCENDING AND SIGMOID COLON. THIS COULD BE ARTIFACT DUE TO POOR DISTENTION OR COULD BE RELATED TO INFLAMMATION. 3. NO OTHER SIGNIFICANT OR ACUTE FINDING IN THE ABDOMEN OR PELVIS ON CT SCAN WITH IV CONTRAST. Chest/Abdomen CTA 12/17/16 06:17 IMPRESSION: 1. NORMAL CTA OF THE CHEST. NO PULMONARY EMBOLI. 2. EXTENSIVE INFILTRATE IN THE RIGHT LUNG CONSISTENT WITH PNEUMONIA. 3. COPD WITH CHRONIC SCARRING. SURGICAL CHANGES. Assessment & Plan - Diagnosis (1) Paroxysmal SVT (supraventricular tachycardia) Is this a current diagnosis for this admission?: Yes (2) Congestive heart failure Qualifiers: Congestive heart failure type: diastolic Is this a current diagnosis for this admission?: Yes (3) COPD (chronic obstructive pulmonary disease) Qualifiers: COPD type: unspecified COPD Qualified Code(s): J44.9 - Chronic obstructive pulmonary disease, unspecified Is this a current diagnosis for this admission?: Yes (4) Pneumonia Qualifiers: Pneumonia type: due to unspecified organism Laterality: right Lung location: unspecified part of lung Qualified Code(s): J18.9 - Pneumonia, unspecified organism Is this a current diagnosis for this admission?: Yes (5) Hypertension Qualifiers: Hypertension type: essential hypertension Qualified Code(s): I10 - Essential (primary) hypertension Is this a current diagnosis for this admission?: Yes - Notes Notes: 2D echo results discussed with the patient. These were discussed with patient and daughter. Questions were answered. Continue with low-dose diuretic therapy. Previous labs, x-ray findings discussed. Supraventricular tachycardia: No further recurrence noted on current medication. Most likely precipitated by pneumonia and COPD exacerbation. 2D echo results reviewed with the patient. Agree with Cardizem drip for the time being. Patient tolerating p.o. Cardizem. Treatment of primary condition, COPD and pneumonia might help reduce recurrence. Congestive heart failure: BNP level noted to be significantly elevated. Right ventricle is dilated. Feel that patient predominantly has right-sided heart failure with contribution from diastolic dysfunction. Continue on low-dose diuretic therapy. COPD exacerbation: Most likely related to pneumonia. Continue antibiotics, bronchodilators and steroid therapy as needed. Pneumonia: Patient noted to have right middle lobe and right lower lobe pneumonia. Patient is also status post lobectomy on the left side. Patient has poor pulmonary reserve. Continue aggressive antibiotic therapy. Hypertension: Blood pressure in the reasonable control. Continue with current management plans. Discussed that patient may need to be evaluated for oxygen mentation and possibly a sleep study as an outpatient. These were related to patient's and daughter. - Time Time with patient: Greater than 35 minutes - CODE STATUS was discussed, patient remains full code. Surrogate decision-maker unchanged. Multiple medical problems were addressed. More than 50% of the time spent coordinating care, discussing management plans with involved caregivers. Management plans discussed with involved personnels. Medical decision making was of moderate to high complexity, patient's has multiple comorbidities.
[2016-12-20] MEDS: TRAZODONE HCL 50 MG TABLET PO SCH (21:26)
[2016-12-20] MEDS: MIRTAZAPINE 15 MG TABLET PO SCH (21:26)
[2016-12-20] MEDS: SERTRALINE HCL 50 MG TABLET PO SCH (21:27)
[2016-12-21] MEDS: ALBUTEROL SULFATE 0.083% NEB 2.5 MG/3 ML AMPUL NEB SCH ×4 (01:52→19:46)
[2016-12-21 05:22] LABS: ABSOLUTE LYMPHOCYTES (AUTO) 0.5 10^3/uL (0.5-4.7); ABSOLUTE MONOCYTES (AUTO) 0.5 10^3/uL (0.1-1.4); ABSOLUTE NEUT (AUTO) 5.2 10^3/uL (1.7-8.2); BASOPHILS % (AUTO) 0.6 % (0-2); EOSINOPHILS % (AUTO) 0.6 % (0-6); HEMATOCRIT 30.5 % (37.9-51.0); HEMOGLOBIN 10.2 g/dL (13.5-17.0); HGB HCT DIFFERENCE 0.1; LYMPHOCYTES % (AUTO) 8.5 % (13-45); MEAN CORPUSCULAR HEMOGLOBIN 29.4 pg (27.0-33.4); MEAN CORPUSCULAR HGB CONC 33.5 g/dL (32.0-36.0); MEAN CORPUSCULAR VOLUME 88 fl (80-97); MONOCYTES % (AUTO) 7.4 % (3-13); RED BLOOD COUNT 3.47 10^6/uL (4.35-5.55); RED CELL DISTRIBUTION WIDTH 17.5 % (11.5-14.0); SEGMENTED NEUTROPHILS % (AUTO) 82.9 % (42-78); WHITE BLOOD COUNT 6.3 10^3/uL (4.0-10.5)
[2016-12-21 05:34] LABS: ANION GAP 9 (5-19); BLOOD UREA NITROGEN 23 mg/dL (7-20); CALCIUM 8.6 mg/dL (8.4-10.2); CARBON DIOXIDE 25 mmol/L (22-30); CHLORIDE 103 mmol/L (98-107); GLUCOSE 308 mg/dL (75-110); POTASSIUM 3.6 mmol/L (3.6-5.0); SODIUM 137.1 mmol/L (137-145)
[2016-12-21] MEDS: CHOLECALCIFEROL (D3) 1,000 UNIT TABLET PO SCH (09:38)
[2016-12-21] MEDS: LEVOFLOXACIN 750 MG/D5W RTU 150 ML IV SCH (09:38)
[2016-12-21] MEDS: MULTIVITAMIN TABLET PO SCH (09:39)
[2016-12-21] MEDS: ENOXAPARIN SODIUM INJ 40 MG/0.4 ML DISP.SYRIN SUBCUT SCH (09:39)
[2016-12-21] MEDS: HYDROCHLOROTHIAZIDE 25 MG TABLET PO SCH (09:39)
[2016-12-21] MEDS: DILTIAZEM HCL 120 MG CAP.SR.24H PO SCH ×2 (09:39→21:49)
[2016-12-21] MEDS: ASPIRIN 325 MG TABLET PO SCH (09:39)
[2016-12-21] MEDS: FAMOTIDINE 20 MG TABLET PO SCH ×2 (09:39→21:48)
--- NOTE | 2016-12-21 09:56 | PDOC PROGRESS REPORT ---
Subjective Progress Note for:: 12/21/16 Subjective:: He is feeling better with less shortness of breath. Physical Exam Vital Signs: Temp Pulse Resp BP Pulse Ox 97.9 F 104 H 30 H 139/80 H 95 12/21/16 07:18 12/21/16 08:20 12/21/16 08:20 12/21/16 07:18 12/21/16 08:20 Intake & Output 12/20/16 12/21/16 12/22/16 06:59 06:59 06:59 Intake Total 893 954 Output Total 2250 1450 Balance -1357 -496 Weight 89.3 kg 89.6 kg General appearance: PRESENT: no acute distress Eye exam: PRESENT: conjunctiva pink. ABSENT: scleral icterus Mouth exam: PRESENT: moist, tongue midline Neck exam: ABSENT: JVD Respiratory exam: PRESENT: rhonchi - Few scattered rhonchi. ABSENT: rales, wheezes Cardiovascular exam: PRESENT: RRR. ABSENT: diastolic murmur, rubs, systolic murmur GI/Abdominal exam: PRESENT: normal bowel sounds, soft. ABSENT: distended, guarding, mass, organolmegaly, rebound, tenderness Extremities exam: ABSENT: calf tenderness, clubbing, pedal edema Neurological exam: PRESENT: alert, awake, oriented to person, oriented to place , oriented to time, oriented to situation, CN II-XII grossly intact. ABSENT: motor sensory deficit Psychiatric exam: PRESENT: appropriate affect Skin exam: PRESENT: dry, intact, warm. ABSENT: cyanosis, rash Results Laboratory Results: 12/21/16 04:19 12/21/16 04:19 12/21/16 12/21/16 04:19 04:19 WBC 6.3 RBC 3.47 L Hgb 10.2 L Hct 30.5 L MCV 88 MCH 29.4 MCHC 33.5 RDW 17.5 H Plt Count 200 Seg Neutrophils % 82.9 H Lymphocytes % 8.5 L Monocytes % 7.4 Eosinophils % 0.6 Basophils % 0.6 Absolute Neutrophils 5.2 Absolute Lymphocytes 0.5 Absolute Monocytes 0.5 Absolute Eosinophils 0.0 Absolute Basophils 0.0 Sodium 137.1 Potassium 3.6 Chloride 103 Carbon Dioxide 25 Anion Gap 9 BUN 23 H Creatinine 0.80 Est GFR ( Amer) > 60 Est GFR (Non-Af Amer) > 60 Glucose 308 H Calcium 8.6 12/17/16 12/17/16 12/18/16 20:55 20:55 03:10 Creatine Kinase 98 108 CK-MB (CK-2) 1.76 Troponin I 0.019 NT-Pro-B Natriuret Pep 12/18/16 12/18/16 12/18/16 03:10 09:35 09:35 Creatine Kinase 99 CK-MB (CK-2) 1.73 1.65 Troponin I 0.023 0.022 NT-Pro-B Natriuret Pep 12/19/16 05:20 Creatine Kinase CK-MB (CK-2) Troponin I NT-Pro-B Natriuret Pep 6280 H Impressions: Chest X-Ray 12/17/16 05:43 IMPRESSION: STABLE SURGICAL CHANGES. INFILTRATE IN THE RIGHT LOWER LOBE SUSPICIOUS FOR PNEUMONIA. Abdomen/Pelvis CT 12/17/16 06:17 IMPRESSION: 1. IRREGULAR BLADDER WALL THICKENING, PRESUMABLY RELATED TO THE RECENT SURGICAL PROCEDURE. 2. RELATIVE THICKENING OF THE WALL OF THE DESCENDING AND SIGMOID COLON. THIS COULD BE ARTIFACT DUE TO POOR DISTENTION OR COULD BE RELATED TO INFLAMMATION. 3. NO OTHER SIGNIFICANT OR ACUTE FINDING IN THE ABDOMEN OR PELVIS ON CT SCAN WITH IV CONTRAST. Chest/Abdomen CTA 12/17/16 06:17 IMPRESSION: 1. NORMAL CTA OF THE CHEST. NO PULMONARY EMBOLI. 2. EXTENSIVE INFILTRATE IN THE RIGHT LUNG CONSISTENT WITH PNEUMONIA. 3. COPD WITH CHRONIC SCARRING. SURGICAL CHANGES. Assessment & Plan - Diagnosis (1) Pneumonia Qualifiers: Pneumonia type: due to unspecified organism Laterality: right Lung location: unspecified part of lung Qualified Code(s): J18.9 - Pneumonia, unspecified organism Is this a current diagnosis for this admission?: YesPlan: This most likely is aspiration pneumonia. The patient is on Levaquin IV, oxygen , nebulizers. Overload has improved after getting the dose of Lasix. Continue with hydrochlorothiazide. He does have a history of having lung cancer and having a left lower lobectomy. No evidence for recurrence on chest x-ray. (2) COPD (chronic obstructive pulmonary disease) Qualifiers: COPD type: unspecified COPD Qualified Code(s): J44.9 - Chronic obstructive pulmonary disease, unspecified Is this a current diagnosis for this admission?: YesPlan: The patient is a former smoker. Patient is on nebulizers and oxygen. (3) Hypertension Qualifiers: Hypertension type: essential hypertension Qualified Code(s): I10 - Essential (primary) hypertension Is this a current diagnosis for this admission?: YesPlan: His blood pressure is stable currently. (4) Hyperlipidemia Is this a current diagnosis for this admission?: YesPlan: Continue with Zocor. (5) Bladder cancer Qualifiers: Bladder location: unspecified site Qualified Code(s): C67.9 - Malignant neoplasm of bladder, unspecified Is this a current diagnosis for this admission?: YesPlan: Had a TURB done Friday at the [facility] in [place]. We will continue to monitor closely. No evidence for obstruction. 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 We will check his fingerstick blood sugars and have him adjust his pump based on the blood sugar results. (7) Lung cancer, lower lobe Qualifiers: Laterality: left Qualified Code(s): C34.32 - Malignant neoplasm of lower lobe, left bronchus or lung Is this a current diagnosis for this admission?: YesPlan: Patient had a left lower lobectomy in June of this year. No evidence for recurrence on chest x-ray. (8) Supraventricular tachycardia Is this a current diagnosis for this admission?: YesPlan: Cardiology is following. (9) Congestive heart failure Is this a current diagnosis for this admission?: YesPlan: Echocardiogram shows him to have diastolic dysfunction. Continue hydrochlorothiazide. - Time Time Spent with patient: 25-34 minutes - Inpatient Certification Medical Necessity: Need for IV Antibiotics
[2016-12-21] MEDS ORDERED: LACTULOSE SYRUP 20 GM/30 ML UDCUP PO PRN (14:45)
[2016-12-21] MEDS: TRAZODONE HCL 50 MG TABLET PO SCH (21:48)
[2016-12-21] MEDS: SERTRALINE HCL 50 MG TABLET PO SCH (21:49)
[2016-12-21] MEDS: MIRTAZAPINE 15 MG TABLET PO SCH (21:50)
[2016-12-22] MEDS: ALBUTEROL SULFATE 0.083% NEB 2.5 MG/3 ML AMPUL NEB SCH ×4 (02:37→20:08)
[2016-12-22 04:54] LABS: ABSOLUTE LYMPHOCYTES (AUTO) 0.6 10^3/uL (0.5-4.7); ABSOLUTE MONOCYTES (AUTO) 0.6 10^3/uL (0.1-1.4); ABSOLUTE NEUT (AUTO) 5.8 10^3/uL (1.7-8.2); BASOPHILS % (AUTO) 0.1 % (0-2); EOSINOPHILS % (AUTO) 0.5 % (0-6); HEMATOCRIT 28.6 % (37.9-51.0); HEMOGLOBIN 9.6 g/dL (13.5-17.0); HGB HCT DIFFERENCE 0.2; LYMPHOCYTES % (AUTO) 8.6 % (13-45); MEAN CORPUSCULAR HEMOGLOBIN 29.3 pg (27.0-33.4); MEAN CORPUSCULAR HGB CONC 33.7 g/dL (32.0-36.0); MEAN CORPUSCULAR VOLUME 87 fl (80-97); MONOCYTES % (AUTO) 8.2 % (3-13); RED BLOOD COUNT 3.29 10^6/uL (4.35-5.55); SEGMENTED NEUTROPHILS % (AUTO) 82.6 % (42-78)
[2016-12-22 05:11] LABS: ANION GAP 8 (5-19); BLOOD UREA NITROGEN 17 mg/dL (7-20); CALCIUM 8.4 mg/dL (8.4-10.2); CARBON DIOXIDE 27 mmol/L (22-30); CHLORIDE 102 mmol/L (98-107); CREATININE RESULT 0.76 mg/dL (0.52-1.25); GLUCOSE 319 mg/dL (75-110); POTASSIUM 3.1 mmol/L (3.6-5.0); SODIUM 137.3 mmol/L (137-145)
[2016-12-22] MEDS ORDERED: POTASSI CL 20 MEQ/50 ML RIDER 50 ML IV ONE (08:45)
--- NOTE | 2016-12-22 09:48 | PDOC PROGRESS REPORT ---
Subjective Progress Note for:: 12/22/16 Subjective:: Has had hemoptysis for the last 2 days. Physical Exam Vital Signs: Temp Pulse Resp BP Pulse Ox 98.5 F 99 18 156/59 H 94 12/22/16 08:14 12/22/16 08:14 12/22/16 08:14 12/22/16 08:14 12/22/16 08:14 Intake & Output 12/21/16 12/22/16 12/23/16 06:59 06:59 06:59 Intake Total 954 0 Output Total 1450 0 Balance -496 20 Weight 89.6 kg 94.5 kg General appearance: PRESENT: no acute distress Eye exam: PRESENT: conjunctiva pink. ABSENT: scleral icterus Mouth exam: PRESENT: moist, tongue midline Neck exam: ABSENT: JVD Respiratory exam: PRESENT: clear to auscultation grisel. ABSENT: rales, rhonchi, wheezes Cardiovascular exam: PRESENT: RRR. ABSENT: diastolic murmur, rubs, systolic murmur GI/Abdominal exam: PRESENT: normal bowel sounds, soft. ABSENT: distended, guarding, mass, organolmegaly, rebound, tenderness Extremities exam: ABSENT: calf tenderness, clubbing, pedal edema Neurological exam: PRESENT: alert, awake, oriented to person, oriented to place , oriented to time, oriented to situation, CN II-XII grossly intact. ABSENT: motor sensory deficit Psychiatric exam: PRESENT: appropriate affect Skin exam: PRESENT: dry, intact, warm. ABSENT: cyanosis, rash Results Laboratory Results: 12/22/16 04:12 12/22/16 04:12 12/22/16 12/22/16 04:12 04:12 WBC 7.0 RBC 3.29 L Hgb 9.6 L Hct 28.6 L MCV 87 MCH 29.3 MCHC 33.7 RDW 17.0 H Plt Count 196 Seg Neutrophils % 82.6 H Lymphocytes % 8.6 L Monocytes % 8.2 Eosinophils % 0.5 Basophils % 0.1 Absolute Neutrophils 5.8 Absolute Lymphocytes 0.6 Absolute Monocytes 0.6 Absolute Eosinophils 0.0 Absolute Basophils 0.0 Sodium 137.3 Potassium 3.1 L Chloride 102 Carbon Dioxide 27 Anion Gap 8 BUN 17 Creatinine 0.76 Est GFR ( Amer) > 60 Est GFR (Non-Af Amer) > 60 Glucose 319 H Calcium 8.4 12/17/16 12/17/16 12/18/16 20:55 20:55 03:10 Creatine Kinase 98 108 CK-MB (CK-2) 1.76 Troponin I 0.019 NT-Pro-B Natriuret Pep 12/18/16 12/18/16 12/18/16 03:10 09:35 09:35 Creatine Kinase 99 CK-MB (CK-2) 1.73 1.65 Troponin I 0.023 0.022 NT-Pro-B Natriuret Pep 12/19/16 05:20 Creatine Kinase CK-MB (CK-2) Troponin I NT-Pro-B Natriuret Pep 6280 H Impressions: Chest X-Ray 12/17/16 05:43 IMPRESSION: STABLE SURGICAL CHANGES. INFILTRATE IN THE RIGHT LOWER LOBE SUSPICIOUS FOR PNEUMONIA. Abdomen/Pelvis CT 12/17/16 06:17 IMPRESSION: 1. IRREGULAR BLADDER WALL THICKENING, PRESUMABLY RELATED TO THE RECENT SURGICAL PROCEDURE. 2. RELATIVE THICKENING OF THE WALL OF THE DESCENDING AND SIGMOID COLON. THIS COULD BE ARTIFACT DUE TO POOR DISTENTION OR COULD BE RELATED TO INFLAMMATION. 3. NO OTHER SIGNIFICANT OR ACUTE FINDING IN THE ABDOMEN OR PELVIS ON CT SCAN WITH IV CONTRAST. Chest/Abdomen CTA 12/17/16 06:17 IMPRESSION: 1. NORMAL CTA OF THE CHEST. NO PULMONARY EMBOLI. 2. EXTENSIVE INFILTRATE IN THE RIGHT LUNG CONSISTENT WITH PNEUMONIA. 3. COPD WITH CHRONIC SCARRING. SURGICAL CHANGES. Assessment & Plan - Diagnosis (1) Pneumonia Qualifiers: Pneumonia type: due to unspecified organism Laterality: right Lung location: unspecified part of lung Qualified Code(s): J18.9 - Pneumonia, unspecified organism Is this a current diagnosis for this admission?: YesPlan: This most likely is aspiration pneumonia. The patient is on Levaquin IV, oxygen , nebulizers. Overload has improved after getting the dose of Lasix. Continue with hydrochlorothiazide. He does have a history of having lung cancer and having a left lower lobectomy. (2) COPD (chronic obstructive pulmonary disease) Qualifiers: COPD type: unspecified COPD Qualified Code(s): J44.9 - Chronic obstructive pulmonary disease, unspecified Is this a current diagnosis for this admission?: YesPlan: The patient is a former smoker. Patient is on nebulizers and oxygen. (3) Hypertension Qualifiers: Hypertension type: essential hypertension Qualified Code(s): I10 - Essential (primary) hypertension Is this a current diagnosis for this admission?: YesPlan: His blood pressure is stable currently. (4) Hyperlipidemia Is this a current diagnosis for this admission?: YesPlan: Continue with Zocor. (5) Bladder cancer Qualifiers: Bladder location: unspecified site Qualified Code(s): C67.9 - Malignant neoplasm of bladder, unspecified Is this a current diagnosis for this admission?: YesPlan: Had a TURB done Friday at the [facility] in [place]. We will continue to monitor closely. No evidence for obstruction. We will plan on removing his Estrada catheter tomorrow. 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 We will check his fingerstick blood sugars and have him adjust his pump based on the blood sugar results. (7) Lung cancer, lower lobe Qualifiers: Laterality: left Qualified Code(s): C34.32 - Malignant neoplasm of lower lobe, left bronchus or lung Is this a current diagnosis for this admission?: YesPlan: Patient had a left lower lobectomy in June of this year. No evidence for recurrence on chest x-ray. Patient has had hemoptysis for 2 days now. Will DC the Lovenox and consult pulmonary medicine tomorrow to see whether or not he needs any further evaluation. (8) Supraventricular tachycardia Is this a current diagnosis for this admission?: YesPlan: Cardiology is following. (9) Congestive heart failure Is this a current diagnosis for this admission?: YesPlan: Echocardiogram shows him to have diastolic dysfunction. Continue hydrochlorothiazide. - Time Time Spent with patient: 25-34 minutes - Inpatient Certification Medical Necessity: Need Close Monitoring Due to Risk of Patient Decompensation
[2016-12-22] MEDS: FAMOTIDINE 20 MG TABLET PO SCH ×2 (10:43→21:03)
[2016-12-22] MEDS: POTASSIUM CHLORIDE 10 MEQ TABLET.SA PO SCH ×2 (10:44→21:01)
[2016-12-22] MEDS: MULTIVITAMIN TABLET PO SCH (10:45)
[2016-12-22] MEDS: CHOLECALCIFEROL (D3) 1,000 UNIT TABLET PO SCH (10:47)
[2016-12-22] MEDS: ASPIRIN 325 MG TABLET PO SCH (10:52)
[2016-12-22] MEDS: HYDROCHLOROTHIAZIDE 25 MG TABLET PO SCH (10:53)
[2016-12-22] MEDS: DILTIAZEM HCL 120 MG CAP.SR.24H PO SCH ×2 (10:53→21:09)
[2016-12-22] MEDS: LEVOFLOXACIN 750 MG/D5W RTU 150 ML IV SCH (10:57)
[2016-12-22] MEDS: MAG HYDROX/AL HYDROX/SIMETH SUSP 30 ML UDCUP PO PRN (12:11)
[2016-12-22] MEDS ORDERED: LEVOFLOXACIN 750 MG TABLET PO ONE (12:30)
--- NOTE | 2016-12-22 15:27 | PDOC PROGRESS REPORT ---
Subjective Progress Note for:: 12/21/16 Subjective:: Patient seems to be doing better with gradual improvement. Pt is denying any chest arm or neck discomfort. Patient still short of breath and was noted to be on bilevel therapy this morning. Able to lay flat and is resting comfortably. Patient denying any PND, orthopnea. Patient denied any sustained palpitations, dizziness, syncope, near syncope. Patient denying any fever chills. Patient denying any other significant discomfort. Patient on nightly bilevel therapy. He is on oxygen supplementation. Breathing is better today as a whole patient also feels better. Patient is maintaining sinus rhythm. Rhythm strip reviewed showed no further recurrence of SVT Review of systems: Rest review of systems negative. Medications: Medications have been reviewed. Physical Exam Vital Signs: Temp Pulse Resp BP Pulse Ox 97.9 F 104 H 30 H 139/80 H 95 12/21/16 07:18 12/21/16 08:20 12/21/16 08:20 12/21/16 07:18 12/21/16 08:20 Intake & Output 12/20/16 12/21/16 12/22/16 06:59 06:59 06:59 Intake Total 893 954 Output Total 2250 1450 Balance -1357 -496 Weight 89.3 kg 89.6 kg Exam: GENERAL: well-nourished and in no acute distress. Alert and oriented x3 HEAD: Atraumatic, normocephalic. EYES: Pupils equal round and reactive to light, extraocular movements intact, sclera anicteric, conjunctiva are normal. ENT: TMs normal, nares patent, oropharynx clear without exudates. Moist mucous membranes. No oral ulcerations or bleeding gums noted NECK: supple without lymphadenopathy. Trachea is central. No cervical or axillary lymphadenopathy noted. Carotids are 2+, JVD WNL LUNGS: Respiration seems nonlabored, no significant accessory muscle action noted. Bilateral mild crackles and wheezing noted right more than left. Minimal dullness noted on the left side. CHEST: Palpation of the chest wall shows no significant chest wall tenderness. No other significant abnormalities noted. 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 ABDOMEN: Soft, no significant tenderness appreciated, normoactive bowel sounds. No guarding, no rebound. No rigidity noted . No masses appreciated. EXTREMITIES: Pedal pulses are 1-2+, no calf tenderness noted. No clubbing or cyanosis.trace to 1+ pedal edema noted NEUROLOGICAL: Focused neurological exam showed no significant neurologic deficit. Normal speech, no focal weakness appreciated. PSYCH: Normal mood, normal affect. Judgment and insight within normal limits. SKIN: No significant ecchymosis, rash, ulcerations or signs of pruritus noted. MUSCULOSKELETAL EXAM: No significant joint swelling noted. Results Laboratory Results: 12/21/16 04:19 12/21/16 04:19 12/21/16 12/21/16 04:19 04:19 WBC 6.3 RBC 3.47 L Hgb 10.2 L Hct 30.5 L MCV 88 MCH 29.4 MCHC 33.5 RDW 17.5 H Plt Count 200 Seg Neutrophils % 82.9 H Lymphocytes % 8.5 L Monocytes % 7.4 Eosinophils % 0.6 Basophils % 0.6 Absolute Neutrophils 5.2 Absolute Lymphocytes 0.5 Absolute Monocytes 0.5 Absolute Eosinophils 0.0 Absolute Basophils 0.0 Sodium 137.1 Potassium 3.6 Chloride 103 Carbon Dioxide 25 Anion Gap 9 BUN 23 H Creatinine 0.80 Est GFR ( Amer) > 60 Est GFR (Non-Af Amer) > 60 Glucose 308 H Calcium 8.6 12/17/16 12/17/16 12/18/16 20:55 20:55 03:10 Creatine Kinase 98 108 CK-MB (CK-2) 1.76 Troponin I 0.019 NT-Pro-B Natriuret Pep 12/18/16 12/18/16 12/18/16 03:10 09:35 09:35 Creatine Kinase 99 CK-MB (CK-2) 1.73 1.65 Troponin I 0.023 0.022 NT-Pro-B Natriuret Pep 12/19/16 05:20 Creatine Kinase CK-MB (CK-2) Troponin I NT-Pro-B Natriuret Pep 6280 H EKG Comments: Telemetry strips reviewed. No significant cardiac dysrhythmia noted. Patient maintaining sinus rhythm. Impressions: Chest X-Ray 12/17/16 05:43 IMPRESSION: STABLE SURGICAL CHANGES. INFILTRATE IN THE RIGHT LOWER LOBE SUSPICIOUS FOR PNEUMONIA. Abdomen/Pelvis CT 12/17/16 06:17 IMPRESSION: 1. IRREGULAR BLADDER WALL THICKENING, PRESUMABLY RELATED TO THE RECENT SURGICAL PROCEDURE. 2. RELATIVE THICKENING OF THE WALL OF THE DESCENDING AND SIGMOID COLON. THIS COULD BE ARTIFACT DUE TO POOR DISTENTION OR COULD BE RELATED TO INFLAMMATION. 3. NO OTHER SIGNIFICANT OR ACUTE FINDING IN THE ABDOMEN OR PELVIS ON CT SCAN WITH IV CONTRAST. Chest/Abdomen CTA 12/17/16 06:17 IMPRESSION: 1. NORMAL CTA OF THE CHEST. NO PULMONARY EMBOLI. 2. EXTENSIVE INFILTRATE IN THE RIGHT LUNG CONSISTENT WITH PNEUMONIA. 3. COPD WITH CHRONIC SCARRING. SURGICAL CHANGES. Assessment & Plan - Diagnosis (1) Paroxysmal SVT (supraventricular tachycardia) Is this a current diagnosis for this admission?: Yes (2) Congestive heart failure Qualifiers: Congestive heart failure type: diastolic Is this a current diagnosis for this admission?: Yes (3) COPD (chronic obstructive pulmonary disease) Qualifiers: COPD type: unspecified COPD Qualified Code(s): J44.9 - Chronic obstructive pulmonary disease, unspecified Is this a current diagnosis for this admission?: Yes (4) Pneumonia Qualifiers: Pneumonia type: due to unspecified organism Laterality: right Lung location: unspecified part of lung Qualified Code(s): J18.9 - Pneumonia, unspecified organism Is this a current diagnosis for this admission?: Yes (5) Hypertension Qualifiers: Hypertension type: essential hypertension Qualified Code(s): I10 - Essential (primary) hypertension Is this a current diagnosis for this admission?: Yes - Notes Notes: Continue with low-dose diuretic therapy. Continue p.o. Cardizem for SVT. Previous labs, x-ray findings discussed. Supraventricular tachycardia: No further recurrence noted on current medication. Most likely precipitated by pneumonia and COPD exacerbation. 2D echo results reviewed with the patient. Agree with Cardizem drip for the time being. Patient tolerating p.o. Cardizem. Treatment of primary condition, COPD and pneumonia might help reduce recurrence. Congestive heart failure: BNP level noted to be significantly elevated. Right ventricle is dilated. Feel that patient predominantly has right-sided heart failure with contribution from diastolic dysfunction. Continue on low-dose diuretic therapy. COPD exacerbation: Most likely related to pneumonia. Continue antibiotics, bronchodilators and steroid therapy as needed. Pneumonia: Patient noted to have right middle lobe and right lower lobe pneumonia. Patient is also status post lobectomy on the left side. Patient has poor pulmonary reserve. Continue aggressive antibiotic therapy. Hypertension: Blood pressure in the reasonable control. Continue with current management plans. Discussed that patient may need to be evaluated for oxygen mentation and possibly a sleep study as an outpatient. Today patient's son was in the room. Management plans discussed. - Time Time with patient: 15-25 minutes - CODE STATUS was discussed, patient remains full code. Surrogate decision-maker unchanged. Multiple medical problems were addressed. More than 50% of the time spent coordinating care, discussing management plans with involved caregivers. Management plans discussed with involved personnels. Medical decision making was of moderate to high complexity , patient's has multiple comorbidities. Medications reviewed and adjusted accordingly: Yes
--- NOTE | 2016-12-22 15:30 | PDOC PROGRESS REPORT ---
Subjective Progress Note for:: 12/22/16 Subjective:: Patient seems to be doing better with gradual improvement. Pt is denying any chest arm or neck discomfort. Patient noted to be significantly better. Currently on nasal cannula oxygen supplementation. Able to lay flat and is resting comfortably. Patient denying any PND, orthopnea. Patient denied any sustained palpitations, dizziness, syncope, near syncope. Patient denying any fever chills. Patient denying any other significant discomfort. Patient on nightly bilevel therapy. He is on oxygen supplementation. Breathing is better today as a whole patient also feels better. Patient is maintaining sinus rhythm. Rhythm strip reviewed showed no further recurrence of SVT Review of systems: Rest review of systems negative. Medications: Medications have been reviewed. Physical Exam Vital Signs: Temp Pulse Resp BP Pulse Ox 97.4 F 87 18 155/70 H 92 12/22/16 11:24 12/22/16 14:34 12/22/16 14:34 12/22/16 11:24 12/22/16 14:34 Intake & Output 12/21/16 12/22/16 12/23/16 06:59 06:59 06:59 Intake Total 954 2070 118 Output Total 1450 2050 350 Balance -496 20 -232 Weight 89.6 kg 94.5 kg Exam: GENERAL: well-nourished and in no acute distress. Alert and oriented x3 HEAD: Atraumatic, normocephalic. EYES: Pupils equal round and reactive to light, extraocular movements intact, sclera anicteric, conjunctiva are normal. ENT: TMs normal, nares patent, oropharynx clear without exudates. Moist mucous membranes. No oral ulcerations or bleeding gums noted NECK: supple without lymphadenopathy. Trachea is central. No cervical or axillary lymphadenopathy noted. Carotids are 2+, JVD WNL LUNGS: Respiration seems nonlabored, no significant accessory muscle action noted. Bilateral few crackles and wheezes rales or rhonchi noted. No significant dullness noted on percussion. CHEST: Palpation of the chest wall shows no significant chest wall tenderness. No other significant abnormalities noted. 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 ABDOMEN: Soft, no significant tenderness appreciated, normoactive bowel sounds. No guarding, no rebound. No rigidity noted . No masses appreciated. EXTREMITIES: Pedal pulses are 1-2+, no calf tenderness noted. No clubbing or cyanosis.trace to 1+ pedal edema noted NEUROLOGICAL: Focused neurological exam showed no significant neurologic deficit. Normal speech, no focal weakness appreciated. PSYCH: Normal mood, normal affect. Judgment and insight within normal limits. SKIN: No significant ecchymosis, rash, ulcerations or signs of pruritus noted. MUSCULOSKELETAL EXAM: No significant joint swelling noted. Results Laboratory Results: 12/22/16 04:12 12/22/16 04:12 12/22/16 12/22/16 04:12 04:12 WBC 7.0 RBC 3.29 L Hgb 9.6 L Hct 28.6 L MCV 87 MCH 29.3 MCHC 33.7 RDW 17.0 H Plt Count 196 Seg Neutrophils % 82.6 H Lymphocytes % 8.6 L Monocytes % 8.2 Eosinophils % 0.5 Basophils % 0.1 Absolute Neutrophils 5.8 Absolute Lymphocytes 0.6 Absolute Monocytes 0.6 Absolute Eosinophils 0.0 Absolute Basophils 0.0 Sodium 137.3 Potassium 3.1 L Chloride 102 Carbon Dioxide 27 Anion Gap 8 BUN 17 Creatinine 0.76 Est GFR ( Amer) > 60 Est GFR (Non-Af Amer) > 60 Glucose 319 H Calcium 8.4 12/17/16 12/17/16 12/18/16 20:55 20:55 03:10 Creatine Kinase 98 108 CK-MB (CK-2) 1.76 Troponin I 0.019 NT-Pro-B Natriuret Pep 12/18/16 12/18/16 12/18/16 03:10 09:35 09:35 Creatine Kinase 99 CK-MB (CK-2) 1.73 1.65 Troponin I 0.023 0.022 NT-Pro-B Natriuret Pep 12/19/16 05:20 Creatine Kinase CK-MB (CK-2) Troponin I NT-Pro-B Natriuret Pep 6280 H EKG Comments: Telemetry strips reviewed sinus rhythm. Impressions: Chest X-Ray 12/17/16 05:43 IMPRESSION: STABLE SURGICAL CHANGES. INFILTRATE IN THE RIGHT LOWER LOBE SUSPICIOUS FOR PNEUMONIA. Abdomen/Pelvis CT 12/17/16 06:17 IMPRESSION: 1. IRREGULAR BLADDER WALL THICKENING, PRESUMABLY RELATED TO THE RECENT SURGICAL PROCEDURE. 2. RELATIVE THICKENING OF THE WALL OF THE DESCENDING AND SIGMOID COLON. THIS COULD BE ARTIFACT DUE TO POOR DISTENTION OR COULD BE RELATED TO INFLAMMATION. 3. NO OTHER SIGNIFICANT OR ACUTE FINDING IN THE ABDOMEN OR PELVIS ON CT SCAN WITH IV CONTRAST. Chest/Abdomen CTA 12/17/16 06:17 IMPRESSION: 1. NORMAL CTA OF THE CHEST. NO PULMONARY EMBOLI. 2. EXTENSIVE INFILTRATE IN THE RIGHT LUNG CONSISTENT WITH PNEUMONIA. 3. COPD WITH CHRONIC SCARRING. SURGICAL CHANGES. Assessment & Plan - Diagnosis (1) Paroxysmal SVT (supraventricular tachycardia) Is this a current diagnosis for this admission?: Yes (2) Congestive heart failure Qualifiers: Congestive heart failure type: diastolic Is this a current diagnosis for this admission?: Yes (3) COPD (chronic obstructive pulmonary disease) Qualifiers: COPD type: unspecified COPD Qualified Code(s): J44.9 - Chronic obstructive pulmonary disease, unspecified Is this a current diagnosis for this admission?: Yes (4) Pneumonia Qualifiers: Pneumonia type: due to unspecified organism Laterality: right Lung location: unspecified part of lung Qualified Code(s): J18.9 - Pneumonia, unspecified organism Is this a current diagnosis for this admission?: Yes (5) Hypertension Qualifiers: Hypertension type: essential hypertension Qualified Code(s): I10 - Essential (primary) hypertension Is this a current diagnosis for this admission?: Yes - Notes Notes: Continue with low-dose diuretic therapy. Continue p.o. Cardizem for SVT. Previous labs, x-ray findings discussed. Supraventricular tachycardia: No further recurrence noted on current medication. Most likely precipitated by pneumonia and COPD exacerbation. 2D echo results reviewed with the patient. Agree with Cardizem drip for the time being. Patient tolerating p.o. Cardizem. Treatment of primary condition, COPD and pneumonia might help reduce recurrence. Congestive heart failure: BNP level noted to be significantly elevated. Right ventricle is dilated. Feel that patient predominantly has right-sided heart failure with contribution from diastolic dysfunction. Continue on low-dose diuretic therapy. COPD exacerbation: Most likely related to pneumonia. Continue antibiotics, bronchodilators and steroid therapy as needed. Pneumonia: Patient noted to have right middle lobe and right lower lobe pneumonia. Patient is also status post lobectomy on the left side. Patient has poor pulmonary reserve. Continue aggressive antibiotic therapy. Hypertension: Blood pressure in the reasonable control. Continue with current management plans. Discussed that patient may need to be evaluated for oxygen mentation and possibly a sleep study as an outpatient. Today patient's was in the room. Management plans discussed. We will be happy to follow patient in the office for further evaluation regarding need for oxygen therapy and sleep study etc. - Time Time with patient: 15-25 minutes - CODE STATUS was discussed, patient remains full code. Surrogate decision-maker unchanged. Multiple medical problems were addressed. More than 50% of the time spent coordinating care, discussing management plans with involved caregivers. Management plans discussed with involved personnels. Medical decision making was of moderate to high complexity , patient's has multiple comorbidities. Medications reviewed and adjusted accordingly: Yes
[2016-12-22] MEDS: MIRTAZAPINE 15 MG TABLET PO SCH (21:02)
[2016-12-22] MEDS: SERTRALINE HCL 50 MG TABLET PO SCH (21:04)
[2016-12-22] MEDS: TRAZODONE HCL 50 MG TABLET PO SCH (21:07)
[2016-12-23] MEDS: ALBUTEROL SULFATE 0.083% NEB 2.5 MG/3 ML AMPUL NEB SCH ×4 (02:15→20:40)
[2016-12-23 05:04] LABS: ABSOLUTE EOSINOPHILS # (AUTO) 0.1 10^3/uL (0.0-0.6); ABSOLUTE LYMPHOCYTES (AUTO) 0.6 10^3/uL (0.5-4.7); ABSOLUTE MONOCYTES (AUTO) 0.5 10^3/uL (0.1-1.4); ABSOLUTE NEUT (AUTO) 4.8 10^3/uL (1.7-8.2); BASOPHILS % (AUTO) 0.3 % (0-2); EOSINOPHILS % (AUTO) 1.9 % (0-6); HEMATOCRIT 28.6 % (37.9-51.0); HEMOGLOBIN 9.6 g/dL (13.5-17.0); HGB HCT DIFFERENCE 0.2; LYMPHOCYTES % (AUTO) 9.6 % (13-45); MEAN CORPUSCULAR HEMOGLOBIN 29.1 pg (27.0-33.4); MEAN CORPUSCULAR HGB CONC 33.5 g/dL (32.0-36.0); MEAN CORPUSCULAR VOLUME 87 fl (80-97); MONOCYTES % (AUTO) 8.2 % (3-13); RED CELL DISTRIBUTION WIDTH 16.9 % (11.5-14.0)
[2016-12-23 05:30] LABS: ANION GAP 9 (5-19); BLOOD UREA NITROGEN 15 mg/dL (7-20); CALCIUM 8.3 mg/dL (8.4-10.2); CARBON DIOXIDE 26 mmol/L (22-30); CHLORIDE 101 mmol/L (98-107); CREATININE RESULT 0.73 mg/dL (0.52-1.25); GLUCOSE 312 mg/dL (75-110); SODIUM 135.9 mmol/L (137-145)
[2016-12-23] MEDS: ASPIRIN 325 MG TABLET PO SCH (09:55)
[2016-12-23] MEDS: POTASSIUM CHLORIDE 10 MEQ TABLET.SA PO SCH ×2 (09:56→21:23)
[2016-12-23] MEDS: LEVOFLOXACIN 750 MG TABLET PO SCH (09:56)
[2016-12-23] MEDS: CHOLECALCIFEROL (D3) 1,000 UNIT TABLET PO SCH (09:56)
[2016-12-23] MEDS: FAMOTIDINE 20 MG TABLET PO SCH ×2 (09:56→21:26)
[2016-12-23] MEDS: MULTIVITAMIN TABLET PO SCH (09:57)
[2016-12-23] MEDS: DILTIAZEM HCL 120 MG CAP.SR.24H PO SCH ×2 (09:57→21:25)
[2016-12-23] MEDS: HYDROCHLOROTHIAZIDE 25 MG TABLET PO SCH (09:57)
--- NOTE | 2016-12-23 10:14 | PDOC PROGRESS REPORT ---
Subjective Progress Note for:: 12/23/16 Subjective:: Continues to have a small amount of hemoptysis. Patient was admitted for aspiration pneumonia that developed 1 day after a urological procedure. Has a history of lung cancer with resection in June of this year of left lobe. Physical Exam Vital Signs: Temp Pulse Resp BP Pulse Ox 98.4 F 101 H 21 H 166/74 H 90 L 12/23/16 07:15 12/23/16 08:09 12/23/16 08:09 12/23/16 07:15 12/23/16 08:09 Intake & Output 12/22/16 12/23/16 12/24/16 06:59 06:59 06:59 Intake Total 2069 1279 Output Total 2049 1700 Balance 20 -421 Weight 94.5 kg 94.2 kg General appearance: PRESENT: no acute distress Eye exam: PRESENT: conjunctiva pink. ABSENT: scleral icterus Mouth exam: PRESENT: moist, tongue midline Neck exam: ABSENT: JVD Respiratory exam: PRESENT: clear to auscultation grisel. ABSENT: rales, rhonchi, wheezes Cardiovascular exam: PRESENT: RRR. ABSENT: diastolic murmur, rubs, systolic murmur GI/Abdominal exam: PRESENT: normal bowel sounds, soft. ABSENT: distended, guarding, mass, organolmegaly, rebound, tenderness Extremities exam: ABSENT: calf tenderness, clubbing, pedal edema Neurological exam: PRESENT: alert, awake, oriented to person, oriented to place , oriented to time, oriented to situation, CN II-XII grossly intact. ABSENT: motor sensory deficit Psychiatric exam: PRESENT: appropriate affect Skin exam: PRESENT: dry, intact, warm. ABSENT: cyanosis, rash Results Laboratory Results: 12/23/16 03:58 12/23/16 03:58 12/23/16 12/23/16 03:58 03:58 WBC 6.0 RBC 3.30 L Hgb 9.6 L Hct 28.6 L MCV 87 MCH 29.1 MCHC 33.5 RDW 16.9 H Plt Count 220 Seg Neutrophils % 80.0 H Lymphocytes % 9.6 L Monocytes % 8.2 Eosinophils % 1.9 Basophils % 0.3 Absolute Neutrophils 4.8 Absolute Lymphocytes 0.6 Absolute Monocytes 0.5 Absolute Eosinophils 0.1 Absolute Basophils 0.0 Sodium 135.9 L Potassium 4.0 Chloride 101 Carbon Dioxide 26 Anion Gap 9 BUN 15 Creatinine 0.73 Est GFR ( Amer) > 60 Est GFR (Non-Af Amer) > 60 Glucose 312 H Calcium 8.3 L 12/17/16 12/17/16 12/18/16 20:55 20:55 03:10 Creatine Kinase 98 108 CK-MB (CK-2) 1.76 Troponin I 0.019 NT-Pro-B Natriuret Pep 12/18/16 12/18/16 12/18/16 03:10 09:35 09:35 Creatine Kinase 99 CK-MB (CK-2) 1.73 1.65 Troponin I 0.023 0.022 NT-Pro-B Natriuret Pep 12/19/16 05:20 Creatine Kinase CK-MB (CK-2) Troponin I NT-Pro-B Natriuret Pep 6280 H Impressions: Chest X-Ray 12/17/16 05:43 IMPRESSION: STABLE SURGICAL CHANGES. INFILTRATE IN THE RIGHT LOWER LOBE SUSPICIOUS FOR PNEUMONIA. Abdomen/Pelvis CT 12/17/16 06:17 IMPRESSION: 1. IRREGULAR BLADDER WALL THICKENING, PRESUMABLY RELATED TO THE RECENT SURGICAL PROCEDURE. 2. RELATIVE THICKENING OF THE WALL OF THE DESCENDING AND SIGMOID COLON. THIS COULD BE ARTIFACT DUE TO POOR DISTENTION OR COULD BE RELATED TO INFLAMMATION. 3. NO OTHER SIGNIFICANT OR ACUTE FINDING IN THE ABDOMEN OR PELVIS ON CT SCAN WITH IV CONTRAST. Chest/Abdomen CTA 12/17/16 06:17 IMPRESSION: 1. NORMAL CTA OF THE CHEST. NO PULMONARY EMBOLI. 2. EXTENSIVE INFILTRATE IN THE RIGHT LUNG CONSISTENT WITH PNEUMONIA. 3. COPD WITH CHRONIC SCARRING. SURGICAL CHANGES. Assessment & Plan - Diagnosis (1) Pneumonia Qualifiers: Pneumonia type: due to unspecified organism Laterality: right Lung location: unspecified part of lung Qualified Code(s): J18.9 - Pneumonia, unspecified organism Is this a current diagnosis for this admission?: YesPlan: This most likely is aspiration pneumonia. This started after a urological procedure. the patient is on Levaquin, oxygen, nebulizers. Volume overload has improved after getting the dose of Lasix. Continue with hydrochlorothiazide. He does have a history of having lung cancer and having a left lower lobectomy. (2) COPD (chronic obstructive pulmonary disease) Qualifiers: COPD type: unspecified COPD Qualified Code(s): J44.9 - Chronic obstructive pulmonary disease, unspecified Is this a current diagnosis for this admission?: YesPlan: The patient is a former smoker. Patient is on nebulizers and oxygen. (3) Hypertension Qualifiers: Hypertension type: essential hypertension Qualified Code(s): I10 - Essential (primary) hypertension Is this a current diagnosis for this admission?: YesPlan: His blood pressure is stable currently. (4) Hyperlipidemia Is this a current diagnosis for this admission?: YesPlan: Continue with Zocor. (5) Bladder cancer Qualifiers: Bladder location: unspecified site Qualified Code(s): C67.9 - Malignant neoplasm of bladder, unspecified Is this a current diagnosis for this admission?: YesPlan: Had a TURB done last Friday at the [facility] in [place]. We will continue to monitor closely. No evidence for obstruction. We will plan on removing his Estrada catheter today. 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 We will check his fingerstick blood sugars and have him adjust his pump based on the blood sugar results. (7) Lung cancer, lower lobe Qualifiers: Laterality: left Qualified Code(s): C34.32 - Malignant neoplasm of lower lobe, left bronchus or lung Is this a current diagnosis for this admission?: YesPlan: Patient had a left lower lobectomy in June of this year. No evidence for recurrence on chest x-ray. Patient has had hemoptysis for 3 days now. Assuming that his hemoptysis is from his underlying pneumonia. However given his history of lung cancer will ask pulmonary medicine for their opinion as to whether or not he needs a bronchoscopy to evaluate this hemoptysis (8) Supraventricular tachycardia Is this a current diagnosis for this admission?: YesPlan: Cardiology is following. (9) Congestive heart failure Is this a current diagnosis for this admission?: YesPlan: Echocardiogram shows him to have diastolic dysfunction. Continue hydrochlorothiazide. - Time Time Spent with patient: 25-34 minutes - Inpatient Certification Medical Necessity: Need Close Monitoring Due to Risk of Patient Decompensation, Need for IV Antibiotics
--- NOTE | 2016-12-23 10:29 | PDOC PROGRESS REPORT ---
Subjective Progress Note for:: 12/23/16 Subjective:: Patient seems to be doing better with gradual improvement however does describe episodes of transient shortness of breath lasting a few minutes. No correlation with cardiac rhythm abnormalities. Pt is denying any chest arm or neck discomfort. Patient noted to be significantly better. Currently on nasal cannula oxygen supplementation. Able to lay flat and is resting comfortably. Patient denying any PND, orthopnea. Patient denied any sustained palpitations, dizziness, syncope, near syncope. Patient denying any fever chills. Patient denying any other significant discomfort. Patient on nightly bilevel therapy. He is on oxygen supplementation. Breathing is better today as a whole patient also feels better. Patient is maintaining sinus rhythm. Rhythm strip reviewed showed no further recurrence of SVT Review of systems: Rest review of systems negative. Medications: Medications have been reviewed. Physical Exam Vital Signs: Temp Pulse Resp BP Pulse Ox 98.4 F 101 H 21 H 166/74 H 90 L 12/23/16 07:15 12/23/16 08:09 12/23/16 08:09 12/23/16 07:15 12/23/16 08:09 Intake & Output 12/22/16 12/23/16 12/24/16 06:59 06:59 06:59 Intake Total 2069 1279 Output Total 2049 1700 Balance 20 -421 Weight 94.5 kg 94.2 kg Exam: GENERAL: well-nourished and in no acute distress. Alert and oriented x3 HEAD: Atraumatic, normocephalic. EYES: Pupils equal round and reactive to light, extraocular movements intact, sclera anicteric, conjunctiva are normal. ENT: TMs normal, nares patent, oropharynx clear without exudates. Moist mucous membranes. No oral ulcerations or bleeding gums noted NECK: supple without lymphadenopathy. Trachea is central. No cervical or axillary lymphadenopathy noted. Carotids are 2+, JVD WNL LUNGS: Respiration seems nonlabored, no significant accessory muscle action noted. Bibasilar crackles noted no significant wheezing noted. CHEST: Palpation of the chest wall shows no significant chest wall tenderness. No other significant abnormalities noted. 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 ABDOMEN: Soft, no significant tenderness appreciated, normoactive bowel sounds. No guarding, no rebound. No rigidity noted . No masses appreciated. EXTREMITIES: Pedal pulses are 1-2+, no calf tenderness noted. No clubbing or cyanosis.trace to 1+ pedal edema noted NEUROLOGICAL: Focused neurological exam showed no significant neurologic deficit. Normal speech, no focal weakness appreciated. PSYCH: Normal mood, normal affect. Judgment and insight within normal limits. SKIN: No significant ecchymosis, rash, ulcerations or signs of pruritus noted. MUSCULOSKELETAL EXAM: No significant joint swelling noted. Results Laboratory Results: 12/23/16 03:58 12/23/16 03:58 12/23/16 12/23/16 03:58 03:58 WBC 6.0 RBC 3.30 L Hgb 9.6 L Hct 28.6 L MCV 87 MCH 29.1 MCHC 33.5 RDW 16.9 H Plt Count 220 Seg Neutrophils % 80.0 H Lymphocytes % 9.6 L Monocytes % 8.2 Eosinophils % 1.9 Basophils % 0.3 Absolute Neutrophils 4.8 Absolute Lymphocytes 0.6 Absolute Monocytes 0.5 Absolute Eosinophils 0.1 Absolute Basophils 0.0 Sodium 135.9 L Potassium 4.0 Chloride 101 Carbon Dioxide 26 Anion Gap 9 BUN 15 Creatinine 0.73 Est GFR ( Amer) > 60 Est GFR (Non-Af Amer) > 60 Glucose 312 H Calcium 8.3 L 12/17/16 12/17/16 12/18/16 20:55 20:55 03:10 Creatine Kinase 98 108 CK-MB (CK-2) 1.76 Troponin I 0.019 NT-Pro-B Natriuret Pep 12/18/16 12/18/16 12/18/16 03:10 09:35 09:35 Creatine Kinase 99 CK-MB (CK-2) 1.73 1.65 Troponin I 0.023 0.022 NT-Pro-B Natriuret Pep 12/19/16 05:20 Creatine Kinase CK-MB (CK-2) Troponin I NT-Pro-B Natriuret Pep 6280 H EKG Comments: Telemetry strips reviewed showed sinus rhythm with occasional VPCs but no sustained tachycardia or bradycardia arrhythmias Impressions: Chest X-Ray 12/17/16 05:43 IMPRESSION: STABLE SURGICAL CHANGES. INFILTRATE IN THE RIGHT LOWER LOBE SUSPICIOUS FOR PNEUMONIA. Abdomen/Pelvis CT 12/17/16 06:17 IMPRESSION: 1. IRREGULAR BLADDER WALL THICKENING, PRESUMABLY RELATED TO THE RECENT SURGICAL PROCEDURE. 2. RELATIVE THICKENING OF THE WALL OF THE DESCENDING AND SIGMOID COLON. THIS COULD BE ARTIFACT DUE TO POOR DISTENTION OR COULD BE RELATED TO INFLAMMATION. 3. NO OTHER SIGNIFICANT OR ACUTE FINDING IN THE ABDOMEN OR PELVIS ON CT SCAN WITH IV CONTRAST. Chest/Abdomen CTA 12/17/16 06:17 IMPRESSION: 1. NORMAL CTA OF THE CHEST. NO PULMONARY EMBOLI. 2. EXTENSIVE INFILTRATE IN THE RIGHT LUNG CONSISTENT WITH PNEUMONIA. 3. COPD WITH CHRONIC SCARRING. SURGICAL CHANGES. Assessment & Plan - Diagnosis (1) Paroxysmal SVT (supraventricular tachycardia) Is this a current diagnosis for this admission?: Yes (2) Congestive heart failure Qualifiers: Congestive heart failure type: diastolic Is this a current diagnosis for this admission?: Yes (3) COPD (chronic obstructive pulmonary disease) Qualifiers: COPD type: unspecified COPD Qualified Code(s): J44.9 - Chronic obstructive pulmonary disease, unspecified Is this a current diagnosis for this admission?: Yes (4) Pneumonia Qualifiers: Pneumonia type: due to unspecified organism Laterality: right Lung location: unspecified part of lung Qualified Code(s): J18.9 - Pneumonia, unspecified organism Is this a current diagnosis for this admission?: Yes (5) Hypertension Qualifiers: Hypertension type: essential hypertension Qualified Code(s): I10 - Essential (primary) hypertension Is this a current diagnosis for this admission?: Yes - Notes Notes: Continue with low-dose diuretic therapy. Continue p.o. Cardizem for SVT. No changes in cardiac medications performed. Previous labs, x-ray findings discussed. Previous echocardiogram results discussed. Supraventricular tachycardia: No further recurrence noted on current medication. Most likely precipitated by pneumonia and COPD exacerbation. 2D echo results reviewed with the patient. Agree with Cardizem drip for the time being. Patient tolerating p.o. Cardizem. Treatment of primary condition, COPD and pneumonia might help reduce recurrence. Congestive heart failure: BNP level noted to be significantly elevated. Right ventricle is dilated. Feel that patient predominantly has right-sided heart failure with contribution from diastolic dysfunction. Continue on low-dose diuretic therapy. Will repeat a predischarge BNP level. COPD exacerbation: Most likely related to pneumonia. Continue antibiotics, bronchodilators and steroid therapy as needed. Pneumonia: Patient noted to have right middle lobe and right lower lobe pneumonia. Patient is also status post lobectomy on the left side. Patient has poor pulmonary reserve. Continue aggressive antibiotic therapy. Hypertension: Blood pressure in the reasonable control. Continue with current management plans. Discussed that patient may need to be evaluated for oxygen mentation and possibly a sleep study as an outpatient. Today patient's was in the room. Management plans discussed. - Time Time with patient: 15-25 minutes - CODE STATUS was discussed, patient remains full code. Surrogate decision-maker unchanged. Multiple medical problems were addressed. More than 50% of the time spent coordinating care, discussing management plans with involved caregivers. Management plans discussed with involved personnels. Medical decision making was of moderate to high complexity , patient's has multiple comorbidities.
[2016-12-23] MEDS ORDERED: TUBERCULIN,PURIF.PROT.DERIV. 5 TU/0.1 ML TEST 1 ML VIAL ID ONE ×2 (15:00→16:02)
--- NOTE | 2016-12-23 16:01 | PDOC CONSULTATION ---
Consultation Consult Date: 12/23/16 Attending physician:: DANK PÉREZ Consult reason:: dyspnea//pna History of Present Illness Admission Date/PCP: 12/17/16 10:12 Past Medical History Cardiac Medical History: Reports: Hyperlipidema, Hypertension Pulmonary Medical History: Reports: Chronic Obstructive Pulmonary Disease (COPD) EENT Medical History: Reports: None, Other - laryngeal cancer Neurological Medical History: Reports: None Endocrine Medical History: Reports: Diabetes Mellitus Type 1, Diabetes Mellitus Type 2 Renal/ Medical History: Reports: None Malignancy Medical History: Reports: Lung Cancer, Other - Bladder cancer Laryngeal cancer GI Medical History: Reports: Gastroesophageal Reflux Disease Psychiatric Medical History: Reports: Depression - years ago Hematology: Reports: None Past Surgical History Past Surgical History: Reports: Other - left thoracotomy, left lower lobectomy , Social History Information Source: Patient, [facility] Records Lives with: Family Smoking Status: Former Smoker Cigarettes Packs Per Day: 1 Number of Years Smokin Last Time Smoked: 2008 Passive smoke exposure as: Both Frequency of Alcohol Use: None Hx Recreational Drug Use: No Drugs: None Hx Prescription Drug Abuse: No Do you have pets?: No Have you had any respiratory illnesses as a child?: No Have you been exposed to any sick contacts recently?: No Have you had any recent respiratory illnesses?: No Have you travelled outside of [place] in the past 12 months?: No - Advance Directive Resuscitation Status: Full Code Family History Family History: Hyperlipidemia, Hypertension Parental Family History Reviewed: Yes Children Family History Reviewed: Yes Sibling(s) Family History Reviewed.: Yes Medication/Allergy Home Medications: Acetaminophen [Tylenol] 325 mg PO Q4 PRN 12/17/16 Aspirin [Aspirin 325 mg Tablet] 325 mg PO DAILY 12/17/16 Cholecalciferol (Vitamin D3) [Vitamin D3 1000 Unit Tablet] 1,000 unit PO DAILY 12/17/16 Hydrochlorothiazide 25 mg PO DAILY 12/17/16 Insulin Aspart [Novolog Insulin (Aspart) 100 unit/mL] 0 units SQ .PUMP 12/17/16 Mirtazapine [Remeron 15 mg Tablet] 7.5 mg PO QHS 12/17/16 Multivitamin [Multivitamins] 1 cap PO DAILY 12/17/16 Sertraline HCl [Zoloft] 150 mg PO QHS 12/17/16 Trazodone HCl [Desyrel] 150 mg PO QHS 12/17/16 Allergies/Adverse Reactions: divalproex sodium [From Depakote] Allergy (Verified 09/07/16 13:36) codeine Adverse Reaction (Verified 09/07/16 13:36) Review of Systems All systems: reviewed and no additional remarkable complaints except as stated Physical Exam Vital Signs: Temp Pulse Resp BP Pulse Ox 98.4 F 101 H 21 H 166/74 H 90 L 12/23/16 07:15 12/23/16 08:09 12/23/16 08:09 12/23/16 07:15 12/23/16 08:09 Intake & Output 12/22/16 12/23/16 12/24/16 06:59 06:59 06:59 Intake Total 2069 127 Output Total 2049 1700 Balance 20 -421 Weight 94.5 kg 94.2 kg General appearance: PRESENT: no acute distress, cooperative, disheveled, thin Head exam: PRESENT: atraumatic, normocephalic Eye exam: PRESENT: conjunctiva pale, EOMI Mouth exam: PRESENT: dry mucosa, neck supple, tongue midline Teeth exam: PRESENT: edentulous Neck exam: ABSENT: carotid bruit, JVD, lymphadenopathy, thyromegaly Respiratory exam: PRESENT: decreased breath sounds, prolonged expiratory phas, rales, rhonchi, symmetrical, unlabored Cardiovascular exam: PRESENT: RRR, +S1, +S2, systolic murmur - mechanical Pulses: PRESENT: normal radial pulses GI/Abdominal exam: PRESENT: ascites Rectal exam: PRESENT: deferred Musculoskeletal exam: PRESENT: normal inspection Neurological exam: PRESENT: awake Psychiatric exam: PRESENT: normal mood Skin exam: PRESENT: dry, warm Results Laboratory Results: 12/23/16 03:58 12/23/16 03:58 12/23/16 12/23/16 03:58 03:58 WBC 6.0 RBC 3.30 L Hgb 9.6 L Hct 28.6 L MCV 87 MCH 29.1 MCHC 33.5 RDW 16.9 H Plt Count 220 Seg Neutrophils % 80.0 H Lymphocytes % 9.6 L Monocytes % 8.2 Eosinophils % 1.9 Basophils % 0.3 Absolute Neutrophils 4.8 Absolute Lymphocytes 0.6 Absolute Monocytes 0.5 Absolute Eosinophils 0.1 Absolute Basophils 0.0 Sodium 135.9 L Potassium 4.0 Chloride 101 Carbon Dioxide 26 Anion Gap 9 BUN 15 Creatinine 0.73 Est GFR ( Amer) > 60 Est GFR (Non-Af Amer) > 60 Glucose 312 H Calcium 8.3 L 12/17/16 12/17/16 12/18/16 20:55 20:55 03:10 Creatine Kinase 98 108 CK-MB (CK-2) 1.76 Troponin I 0.019 NT-Pro-B Natriuret Pep 12/18/16 12/18/16 12/18/16 03:10 09:35 09:35 Creatine Kinase 99 CK-MB (CK-2) 1.73 1.65 Troponin I 0.023 0.022 NT-Pro-B Natriuret Pep 12/19/16 12/23/16 05:20 03:58 Creatine Kinase CK-MB (CK-2) Troponin I NT-Pro-B Natriuret Pep 6280 H 2310 H Impressions: Chest X-Ray 12/17/16 05:43 IMPRESSION: STABLE SURGICAL CHANGES. INFILTRATE IN THE RIGHT LOWER LOBE SUSPICIOUS FOR PNEUMONIA. Abdomen/Pelvis CT 12/17/16 06:17 IMPRESSION: 1. IRREGULAR BLADDER WALL THICKENING, PRESUMABLY RELATED TO THE RECENT SURGICAL PROCEDURE. 2. RELATIVE THICKENING OF THE WALL OF THE DESCENDING AND SIGMOID COLON. THIS COULD BE ARTIFACT DUE TO POOR DISTENTION OR COULD BE RELATED TO INFLAMMATION. 3. NO OTHER SIGNIFICANT OR ACUTE FINDING IN THE ABDOMEN OR PELVIS ON CT SCAN WITH IV CONTRAST. Chest/Abdomen CTA 12/17/16 06:17 IMPRESSION: 1. NORMAL CTA OF THE CHEST. NO PULMONARY EMBOLI. 2. EXTENSIVE INFILTRATE IN THE RIGHT LUNG CONSISTENT WITH PNEUMONIA. 3. COPD WITH CHRONIC SCARRING. SURGICAL CHANGES. 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 Bronchodilator therapy and supplemental oxygen as tolerated (3) Congestive heart failure Qualifiers: Congestive heart failure type: diastolic Is this a current diagnosis for this admission?: Yes (4) Pneumonia Qualifiers: Pneumonia type: due to unspecified organism Laterality: bilateral Lung location: unspecified part of lung Qualified Code(s): J18.9 - Pneumonia, unspecified organism Is this a current diagnosis for this admission?: YesPlan: PPD (5) Lung cancer, lower lobe Qualifiers: Laterality: left Qualified Code(s): C34.32 - Malignant neoplasm of lower lobe, left bronchus or lung Is this a current diagnosis for this admission?: Yes
[2016-12-23] MEDS: TRAZODONE HCL 50 MG TABLET PO SCH (21:25)
[2016-12-23] MEDS: SERTRALINE HCL 50 MG TABLET PO SCH (21:26)
[2016-12-23] MEDS: MIRTAZAPINE 15 MG TABLET PO SCH (21:27)
[2016-12-24] MEDS: ALBUTEROL SULFATE 0.083% NEB 2.5 MG/3 ML AMPUL NEB SCH ×4 (01:57→20:51)
[2016-12-24 05:40] LABS: ABSOLUTE EOSINOPHILS # (AUTO) 0.2 10^3/uL (0.0-0.6); ABSOLUTE LYMPHOCYTES (AUTO) 0.7 10^3/uL (0.5-4.7); ABSOLUTE MONOCYTES (AUTO) 0.5 10^3/uL (0.1-1.4); ABSOLUTE NEUT (AUTO) 5.3 10^3/uL (1.7-8.2); BASOPHILS % (AUTO) 0.3 % (0-2); EOSINOPHILS % (AUTO) 2.5 % (0-6); HEMATOCRIT 30.4 % (37.9-51.0); HEMOGLOBIN 10.4 g/dL (13.5-17.0); HGB HCT DIFFERENCE 0.8; LYMPHOCYTES % (AUTO) 9.9 % (13-45); MEAN CORPUSCULAR HEMOGLOBIN 29.6 pg (27.0-33.4); MEAN CORPUSCULAR HGB CONC 34.1 g/dL (32.0-36.0); MEAN CORPUSCULAR VOLUME 87 fl (80-97); MONOCYTES % (AUTO) 8.1 % (3-13); RED BLOOD COUNT 3.51 10^6/uL (4.35-5.55); SEGMENTED NEUTROPHILS % (AUTO) 79.2 % (42-78); WHITE BLOOD COUNT 6.7 10^3/uL (4.0-10.5)
[2016-12-24 05:53] LABS: ANION GAP 11 (5-19); BLOOD UREA NITROGEN 15 mg/dL (7-20); CALCIUM 8.5 mg/dL (8.4-10.2); CARBON DIOXIDE 26 mmol/L (22-30); CHLORIDE 100 mmol/L (98-107); CREATININE RESULT 0.73 mg/dL (0.52-1.25); GLUCOSE 248 mg/dL (75-110); POTASSIUM 4.1 mmol/L (3.6-5.0); SODIUM 136.6 mmol/L (137-145)
[2016-12-24] MEDS: CHOLECALCIFEROL (D3) 1,000 UNIT TABLET PO SCH (09:50)
[2016-12-24] MEDS: FAMOTIDINE 20 MG TABLET PO SCH ×2 (09:50→21:58)
[2016-12-24] MEDS: ASPIRIN 325 MG TABLET PO SCH (09:50)
[2016-12-24] MEDS: HYDROCHLOROTHIAZIDE 25 MG TABLET PO SCH (09:51)
[2016-12-24] MEDS: LEVOFLOXACIN 750 MG TABLET PO SCH (09:51)
[2016-12-24] MEDS: DILTIAZEM HCL 120 MG CAP.SR.24H PO SCH ×2 (09:51→21:59)
[2016-12-24] MEDS: MULTIVITAMIN TABLET PO SCH (09:51)
[2016-12-24] MEDS: POTASSIUM CHLORIDE 10 MEQ TABLET.SA PO SCH ×2 (09:52→21:58)
[2016-12-24] MEDS: ACETAMINOPHEN 325 MG TABLET PO PRN ×2 (09:53→20:15)
--- NOTE | 2016-12-24 10:40 | PDOC PROGRESS REPORT ---
Subjective Progress Note for:: 12/24/16 Subjective:: Pt is denying any chest arm or neck discomfort. Patient noted to be significantly better. Currently on nasal cannula oxygen supplementation. Able to lay flat and is resting comfortably. Patient denying any PND, orthopnea. Patient denied any sustained palpitations, dizziness, syncope, near syncope. Patient denying any fever chills. Patient denying any other significant discomfort. Patient on nightly bilevel therapy. He is on oxygen supplementation. Breathing is better today as a whole patient also feels better. Patient is maintaining sinus rhythm. Rhythm strip reviewed showed no further recurrence of SVT Review of systems: Rest review of systems negative. Medications: Medications have been reviewed. Physical Exam Vital Signs: Temp Pulse Resp BP Pulse Ox 97.5 F 97 18 162/75 H 93 12/24/16 07:42 12/24/16 07:42 12/24/16 07:42 12/24/16 07:42 12/24/16 07:42 Intake & Output 12/23/16 12/24/16 12/25/16 06:59 06:59 06:59 Intake Total 1279 460 Output Total 1700 1900 Balance -421 -1440 Weight 94.2 kg 94.3 kg Exam: GENERAL: well-nourished and in no acute distress. Alert and oriented x3 HEAD: Atraumatic, normocephalic. EYES: Pupils equal round and reactive to light, extraocular movements intact, sclera anicteric, conjunctiva are normal. ENT: TMs normal, nares patent, oropharynx clear without exudates. Moist mucous membranes. No oral ulcerations or bleeding gums noted NECK: supple without lymphadenopathy. Trachea is central. No cervical or axillary lymphadenopathy noted. Carotids are 2+, JVD WNL LUNGS: Respiration seems nonlabored, no significant accessory muscle action noted. Bibasilar fine crackles are noted. No significant wheezes rales or rhonchi noted. No significant dullness noted on percussion. CHEST: Palpation of the chest wall shows no significant chest wall tenderness. No other significant abnormalities noted. 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 ABDOMEN: Soft, no significant tenderness appreciated, normoactive bowel sounds. No guarding, no rebound. No rigidity noted . No masses appreciated. EXTREMITIES: Pedal pulses are 1-2+, no calf tenderness noted. No clubbing or cyanosis.trace to 1+ pedal edema noted NEUROLOGICAL: Focused neurological exam showed no significant neurologic deficit. Normal speech, no focal weakness appreciated. PSYCH: Normal mood, normal affect. Judgment and insight within normal limits. SKIN: No significant ecchymosis, rash, ulcerations or signs of pruritus noted. MUSCULOSKELETAL EXAM: No significant joint swelling noted. Results Laboratory Results: 12/24/16 04:31 12/24/16 04:31 12/24/16 12/24/16 04:31 04:31 WBC 6.7 RBC 3.51 L Hgb 10.4 L Hct 30.4 L MCV 87 MCH 29.6 MCHC 34.1 RDW 17.0 H Plt Count 269 Seg Neutrophils % 79.2 H Lymphocytes % 9.9 L Monocytes % 8.1 Eosinophils % 2.5 Basophils % 0.3 Absolute Neutrophils 5.3 Absolute Lymphocytes 0.7 Absolute Monocytes 0.5 Absolute Eosinophils 0.2 Absolute Basophils 0.0 Sodium 136.6 L Potassium 4.1 Chloride 100 Carbon Dioxide 26 Anion Gap 11 BUN 15 Creatinine 0.73 Est GFR ( Amer) > 60 Est GFR (Non-Af Amer) > 60 Glucose 248 H Calcium 8.5 12/17/16 12/17/16 12/18/16 20:55 20:55 03:10 Creatine Kinase 98 108 CK-MB (CK-2) 1.76 Troponin I 0.019 NT-Pro-B Natriuret Pep 12/18/16 12/18/16 12/18/16 03:10 09:35 09:35 Creatine Kinase 99 CK-MB (CK-2) 1.73 1.65 Troponin I 0.023 0.022 NT-Pro-B Natriuret Pep 12/19/16 12/23/16 05:20 03:58 Creatine Kinase CK-MB (CK-2) Troponin I NT-Pro-B Natriuret Pep 6280 H 2310 H EKG Comments: Telemetry strips reviewed. It shows patient maintaining sinus rhythm without any sustained tachycardia or bradycardia arrhythmias. Impressions: Chest X-Ray 12/17/16 05:43 IMPRESSION: STABLE SURGICAL CHANGES. INFILTRATE IN THE RIGHT LOWER LOBE SUSPICIOUS FOR PNEUMONIA. Abdomen/Pelvis CT 12/17/16 06:17 IMPRESSION: 1. IRREGULAR BLADDER WALL THICKENING, PRESUMABLY RELATED TO THE RECENT SURGICAL PROCEDURE. 2. RELATIVE THICKENING OF THE WALL OF THE DESCENDING AND SIGMOID COLON. THIS COULD BE ARTIFACT DUE TO POOR DISTENTION OR COULD BE RELATED TO INFLAMMATION. 3. NO OTHER SIGNIFICANT OR ACUTE FINDING IN THE ABDOMEN OR PELVIS ON CT SCAN WITH IV CONTRAST. Chest/Abdomen CTA 12/17/16 06:17 IMPRESSION: 1. NORMAL CTA OF THE CHEST. NO PULMONARY EMBOLI. 2. EXTENSIVE INFILTRATE IN THE RIGHT LUNG CONSISTENT WITH PNEUMONIA. 3. COPD WITH CHRONIC SCARRING. SURGICAL CHANGES. Assessment & Plan - Diagnosis (1) Paroxysmal SVT (supraventricular tachycardia) Is this a current diagnosis for this admission?: Yes (2) Congestive heart failure Qualifiers: Congestive heart failure type: diastolic Is this a current diagnosis for this admission?: Yes (3) COPD (chronic obstructive pulmonary disease) Qualifiers: COPD type: unspecified COPD Qualified Code(s): J44.9 - Chronic obstructive pulmonary disease, unspecified Is this a current diagnosis for this admission?: Yes (4) Pneumonia Qualifiers: Pneumonia type: due to unspecified organism Laterality: bilateral Lung location: unspecified part of lung Qualified Code(s): J18.9 - Pneumonia, unspecified organism Is this a current diagnosis for this admission?: Yes (5) Hypertension Qualifiers: Hypertension type: essential hypertension Qualified Code(s): I10 - Essential (primary) hypertension Is this a current diagnosis for this admission?: Yes - Notes Notes: Continue with low-dose diuretic therapy. Continue p.o. Cardizem for SVT. No changes in cardiac medications performed. Will order a chest x-ray. Previous labs, x-ray findings discussed. Previous echocardiogram results discussed. Supraventricular tachycardia: No further recurrence noted on current medication. Most likely precipitated by pneumonia and COPD exacerbation. 2D echo results reviewed with the patient. Agree with Cardizem drip for the time being. Patient tolerating p.o. Cardizem. Treatment of primary condition, COPD and pneumonia might help reduce recurrence. Congestive heart failure: BNP level noted to be significantly elevated. Right ventricle is dilated. Feel that patient predominantly has right-sided heart failure with contribution from diastolic dysfunction. Continue on low-dose diuretic therapy. Follow-up BNP level came back significantly improved. COPD exacerbation: Most likely related to pneumonia. Continue antibiotics, bronchodilators and steroid therapy as needed. Pneumonia: Patient noted to have right middle lobe and right lower lobe pneumonia. Patient is also status post lobectomy on the left side. Patient has poor pulmonary reserve. Continue aggressive antibiotic therapy. Hypertension: Blood pressure in the reasonable control. Continue with current management plans. Discussed that patient may need to be evaluated for oxygen mentation and possibly a sleep study as an outpatient. Today patient's was in the room. Management plans discussed. We will be happy to follow patient in the office. - Time Time with patient: Greater than 35 minutes - CODE STATUS was discussed, patient remains full code. Surrogate decision-maker unchanged. Multiple medical problems were addressed. More than 50% of the time spent coordinating care, discussing management plans with involved caregivers. Management plans discussed with involved personnels. Medical decision making was of moderate to high complexity, patient's has multiple comorbidities. Medications reviewed and adjusted accordingly: Yes
--- NOTE | 2016-12-24 12:19 | RADIOLOGY REPORT (SQ) ---
EXAM DESCRIPTION: CHEST PA/LAT COMPLETED DATE/TIME: 12/24/2016 11:48 am REASON FOR STUDY: followup CHF, pneumonia COMPARISON: 12/17/2016. EXAM PARAMETERS: NUMBER OF VIEWS: two views TECHNIQUE: Digital Frontal and Lateral radiographic views of the chest acquired. RADIATION DOSE: NA LIMITATIONS: none FINDINGS: LUNGS AND PLEURA: Surgical changes on the left with retraction and pleural thickening in t he left apex. Blunting of the left costophrenic angle. Improved aeration in the right lower lobe. Interval development of prominent interstitial changes in the right upper lobe and left lower lobe. MEDIASTINUM AND HILAR STRUCTURES: No masses or contour abnormalities. HEART AND VASCULAR STRUCTURES: Heart normal size. No evidence for failure. BONES: No acute findings. HARDWARE: None in the chest. OTHER: No other significant finding. IMPRESSION: SURGICAL CHANGES AND CHRONIC SCARRING. INTERVAL DEVELOPMENT OF INTERSTITIAL CHANGES IN THE RIGHT UPPER LOBE AND LEFT LOWER LOBE, CONCERNING FOR PNEUMONIA. TECHNICAL DOCUMENTATION: JOB ID: [id number] [employer])- All Rights Reserved
--- NOTE | 2016-12-24 13:39 | PDOC PROGRESS REPORT ---
Subjective Progress Note for:: 12/24/16 Subjective:: Patient is feeling better. Shortness of breath is better. Denies any chest pain. No nausea or vomiting chills or fever. Appetite still poor. No diarrhea or abdominal pain. Patient and family attributes drop in appetite due to recent surgery as he had the same experience prior. Physical Exam Vital Signs: Temp Pulse Resp BP Pulse Ox 97.5 F 81 17 162/75 H 93 12/24/16 07:42 12/24/16 08:13 12/24/16 08:13 12/24/16 07:42 12/24/16 07:42 Intake & Output 12/23/16 12/24/16 12/25/16 06:59 06:59 06:59 Intake Total 1279 460 Output Total 1700 1900 Balance -421 -1440 Weight 94.2 kg 94.3 kg General appearance: PRESENT: no acute distress, cooperative Head exam: PRESENT: normocephalic Eye exam: PRESENT: EOMI Mouth exam: PRESENT: moist, neck supple Neck exam: ABSENT: JVD Respiratory exam: PRESENT: clear to auscultation grisel - Anteriorly, rhonchi - Minimal posteriorly. ABSENT: wheezes Cardiovascular exam: PRESENT: RRR. ABSENT: gallop GI/Abdominal exam: PRESENT: soft. ABSENT: distended, tenderness Extremities exam: PRESENT: other. ABSENT: pedal edema Neurological exam: PRESENT: alert, awake, oriented to situation Skin exam: PRESENT: dry, warm. ABSENT: cyanosis Results Laboratory Results: 12/24/16 04:31 12/24/16 04:31 12/24/16 12/24/16 04:31 04:31 WBC 6.7 RBC 3.51 L Hgb 10.4 L Hct 30.4 L MCV 87 MCH 29.6 MCHC 34.1 RDW 17.0 H Plt Count 269 Seg Neutrophils % 79.2 H Lymphocytes % 9.9 L Monocytes % 8.1 Eosinophils % 2.5 Basophils % 0.3 Absolute Neutrophils 5.3 Absolute Lymphocytes 0.7 Absolute Monocytes 0.5 Absolute Eosinophils 0.2 Absolute Basophils 0.0 Sodium 136.6 L Potassium 4.1 Chloride 100 Carbon Dioxide 26 Anion Gap 11 BUN 15 Creatinine 0.73 Est GFR ( Amer) > 60 Est GFR (Non-Af Amer) > 60 Glucose 248 H Calcium 8.5 0712/17/16 12/18/16 20:55 20:55 03:10 Creatine Kinase 98 108 CK-MB (CK-2) 1.76 Troponin I 0.019 NT-Pro-B Natriuret Pep 12/18/16 12/18/16 12/18/16 03:10 09:35 09:35 Creatine Kinase 99 CK-MB (CK-2) 1.73 1.65 Troponin I 0.023 0.022 NT-Pro-B Natriuret Pep 12/19/16 12/23/16 05:20 03:58 Creatine Kinase CK-MB (CK-2) Troponin I NT-Pro-B Natriuret Pep 6280 H 2310 H Impressions: Abdomen/Pelvis CT 12/17/16 06:17 IMPRESSION: 1. IRREGULAR BLADDER WALL THICKENING, PRESUMABLY RELATED TO THE RECENT SURGICAL PROCEDURE. 2. RELATIVE THICKENING OF THE WALL OF THE DESCENDING AND SIGMOID COLON. THIS COULD BE ARTIFACT DUE TO POOR DISTENTION OR COULD BE RELATED TO INFLAMMATION. 3. NO OTHER SIGNIFICANT OR ACUTE FINDING IN THE ABDOMEN OR PELVIS ON CT SCAN WITH IV CONTRAST. Chest/Abdomen CTA 12/17/16 06:17 IMPRESSION: 1. NORMAL CTA OF THE CHEST. NO PULMONARY EMBOLI. 2. EXTENSIVE INFILTRATE IN THE RIGHT LUNG CONSISTENT WITH PNEUMONIA. 3. COPD WITH CHRONIC SCARRING. SURGICAL CHANGES. Chest X-Ray 12/24/16 10:40 IMPRESSION: SURGICAL CHANGES AND CHRONIC SCARRING. INTERVAL DEVELOPMENT OF INTERSTITIAL CHANGES IN THE RIGHT UPPER LOBE AND LEFT LOWER LOBE, CONCERNING FOR PNEUMONIA. Assessment & Plan - Diagnosis (1) Pneumonia Qualifiers: Pneumonia type: due to unspecified organism Laterality: bilateral Lung location: unspecified part of lung Qualified Code(s): J18.9 - Pneumonia, unspecified organism Is this a current diagnosis for this admission?: Yes (2) Anemia in chronic illness Is this a current diagnosis for this admission?: Yes (3) Congestive heart failure Qualifiers: Congestive heart failure type: diastolic Congestive heart failure chronicity: chronic Qualified Code(s): I50.32 - Chronic diastolic ( congestive) heart failure Is this a current diagnosis for this admission?: Yes (4) Supraventricular tachycardia Is this a current diagnosis for this admission?: Yes (5) COPD (chronic obstructive pulmonary disease) Qualifiers: COPD type: unspecified COPD Qualified Code(s): J44.9 - Chronic obstructive pulmonary disease, unspecified Is this a current diagnosis for this admission?: Yes (6) Congestive heart failure Qualifiers: Congestive heart failure type: diastolic Is this a current diagnosis for this admission?: Yes (7) Hyperlipidemia Is this a current diagnosis for this admission?: Yes (8) Hypertension Qualifiers: Hypertension type: essential hypertension Qualified Code(s): I10 - Essential (primary) hypertension Is this a current diagnosis for this admission?: Yes - Time Time Spent with patient: 25-34 minutes - Plan Summary Plan Summary: Continue antibiotics. Discontinue intravenous fluids. Increase activity, begin physical therapy. Check room air oxygenation at rest and on ambulation. Continue supportive care.
[2016-12-24] MEDS: TRAZODONE HCL 50 MG TABLET PO SCH (21:58)
[2016-12-24] MEDS: MIRTAZAPINE 15 MG TABLET PO SCH (21:58)
[2016-12-24] MEDS: SERTRALINE HCL 50 MG TABLET PO SCH (21:59)
[2016-12-25] MEDS: ALBUTEROL SULFATE 0.083% NEB 2.5 MG/3 ML AMPUL NEB SCH ×4 (02:18→20:00)
--- NOTE | 2016-12-25 09:14 | PDOC PROGRESS REPORT ---
Subjective Progress Note for:: 12/25/16 Subjective:: Patient continues to feel better. Shortness of breath is better. Denies any chest pain. No nausea or vomiting chills or fever. No diarrhea or abdominal pain. Patient feels generally weak. His oxygen saturation dropped to 83% on room air. Physical Exam Vital Signs: Temp Pulse Resp BP Pulse Ox 98.3 F 74 18 160/65 H 95 12/25/16 05:15 12/25/16 07:55 12/25/16 07:55 12/25/16 05:15 12/25/16 07:55 Intake & Output 12/24/16 12/25/16 12/26/16 06:59 06:59 06:59 Intake Total 460 1470 Output Total 1900 1600 Balance -1440 -130 Weight 94.3 kg 94.5 kg General appearance: PRESENT: no acute distress, cooperative Head exam: PRESENT: normocephalic Eye exam: PRESENT: EOMI Mouth exam: PRESENT: moist, neck supple Neck exam: ABSENT: JVD Respiratory exam: PRESENT: decreased breath sounds - Bilateral. ABSENT: rhonchi , wheezes Cardiovascular exam: PRESENT: RRR. ABSENT: gallop GI/Abdominal exam: PRESENT: soft. ABSENT: distended, tenderness Extremities exam: ABSENT: pedal edema Neurological exam: PRESENT: alert, awake, oriented to situation Skin exam: PRESENT: dry, warm. ABSENT: cyanosis Results Laboratory Results: 12/24/16 04:31 12/24/16 04:31 12/17/16 12/17/16 12/18/16 20:55 20:55 03:10 Creatine Kinase 98 108 CK-MB (CK-2) 1.76 Troponin I 0.019 NT-Pro-B Natriuret Pep 12/18/16 12/18/16 12/18/16 03:10 09:35 09:35 Creatine Kinase 99 CK-MB (CK-2) 1.73 1.65 Troponin I 0.023 0.022 NT-Pro-B Natriuret Pep 12/19/16 12/23/16 05:20 03:58 Creatine Kinase CK-MB (CK-2) Troponin I NT-Pro-B Natriuret Pep 6280 H 2310 H Impressions: Abdomen/Pelvis CT 12/17/16 06:17 IMPRESSION: 1. IRREGULAR BLADDER WALL THICKENING, PRESUMABLY RELATED TO THE RECENT SURGICAL PROCEDURE. 2. RELATIVE THICKENING OF THE WALL OF THE DESCENDING AND SIGMOID COLON. THIS COULD BE ARTIFACT DUE TO POOR DISTENTION OR COULD BE RELATED TO INFLAMMATION. 3. NO OTHER SIGNIFICANT OR ACUTE FINDING IN THE ABDOMEN OR PELVIS ON CT SCAN WITH IV CONTRAST. Chest/Abdomen CTA 12/17/16 06:17 IMPRESSION: 1. NORMAL CTA OF THE CHEST. NO PULMONARY EMBOLI. 2. EXTENSIVE INFILTRATE IN THE RIGHT LUNG CONSISTENT WITH PNEUMONIA. 3. COPD WITH CHRONIC SCARRING. SURGICAL CHANGES. Chest X-Ray 12/24/16 10:40 IMPRESSION: SURGICAL CHANGES AND CHRONIC SCARRING. INTERVAL DEVELOPMENT OF INTERSTITIAL CHANGES IN THE RIGHT UPPER LOBE AND LEFT LOWER LOBE, CONCERNING FOR PNEUMONIA. Assessment & Plan - Diagnosis (1) Pneumonia Qualifiers: Pneumonia type: due to unspecified organism Laterality: bilateral Lung location: unspecified part of lung Qualified Code(s): J18.9 - Pneumonia, unspecified organism Is this a current diagnosis for this admission?: Yes (2) Anemia in chronic illness Is this a current diagnosis for this admission?: Yes (3) Congestive heart failure Qualifiers: Congestive heart failure type: diastolic Congestive heart failure chronicity: chronic Qualified Code(s): I50.32 - Chronic diastolic ( congestive) heart failure Is this a current diagnosis for this admission?: Yes (4) Supraventricular tachycardia Is this a current diagnosis for this admission?: Yes (5) COPD (chronic obstructive pulmonary disease) Qualifiers: COPD type: unspecified COPD Qualified Code(s): J44.9 - Chronic obstructive pulmonary disease, unspecified Is this a current diagnosis for this admission?: Yes (6) Congestive heart failure Qualifiers: Congestive heart failure type: diastolic Is this a current diagnosis for this admission?: Yes (7) Hyperlipidemia Is this a current diagnosis for this admission?: Yes (8) Hypertension Qualifiers: Hypertension type: essential hypertension Qualified Code(s): I10 - Essential (primary) hypertension Is this a current diagnosis for this admission?: Yes - Time Time Spent with patient: 25-34 minutes - Plan Summary Plan Summary: We will give a dose of Lasix intravenous today. We will arrange for home oxygen. Continue antibiotics and supportive care. If stable in the morning we will discharge home. We will arrange for home health physical therapy as well.
[2016-12-25] MEDS ORDERED: FUROSEMIDE INJ/PF 40 MG/4 ML SDV IV ONE (09:30)
[2016-12-25] MEDS: POTASSIUM CHLORIDE 20 MEQ/15 ML UDCUP PO SCH (10:53)
[2016-12-25] MEDS: ASPIRIN 325 MG TABLET PO SCH (10:53)
[2016-12-25] MEDS: LEVOFLOXACIN 750 MG TABLET PO SCH (10:54)
[2016-12-25] MEDS: HYDROCHLOROTHIAZIDE 25 MG TABLET PO SCH (10:54)
[2016-12-25] MEDS: MULTIVITAMIN TABLET PO SCH (10:54)
[2016-12-25] MEDS: CHOLECALCIFEROL (D3) 1,000 UNIT TABLET PO SCH (10:54)
[2016-12-25] MEDS: DILTIAZEM HCL 120 MG CAP.SR.24H PO SCH ×2 (10:55→21:39)
[2016-12-25] MEDS: FAMOTIDINE 20 MG TABLET PO SCH ×2 (10:55→21:39)
--- NOTE | 2016-12-25 10:59 | PDOC PROGRESS REPORT ---
Subjective Progress Note for:: 12/25/16 Subjective:: Pt is denying any chest arm or neck discomfort. Patient noted to be significantly better. Currently on nasal cannula oxygen supplementation. Able to lay flat and is resting comfortably. Patient denying any PND, orthopnea. Patient denied any sustained palpitations, dizziness, syncope, near syncope. Patient denying any fever chills. Patient denying any other significant discomfort. Patient on nightly bilevel therapy. He is on oxygen supplementation. Patient O2 saturation was noted to drop to 83%. He is willing to qualify for oxygen supplementation. Patient will benefit from a sleep study as an outpatient to qualify him for CPAP/bilevel therapy. Patient is maintaining sinus rhythm. Rhythm strip reviewed showed no further recurrence of SVT Review of systems: Rest review of systems negative. Medications: Medications have been reviewed. Physical Exam Vital Signs: Temp Pulse Resp BP Pulse Ox 98.3 F 74 18 160/65 H 95 12/25/16 05:15 12/25/16 07:55 12/25/16 07:55 12/25/16 05:15 12/25/16 07:55 Intake & Output 12/24/16 12/25/16 12/26/16 06:59 06:59 06:59 Intake Total 460 1470 Output Total 1900 1600 Balance -1440 -130 Weight 94.3 kg 94.5 kg Exam: GENERAL: well-nourished and in no acute distress. Alert and oriented x3 HEAD: Atraumatic, normocephalic. EYES: Pupils equal round and reactive to light, extraocular movements intact, sclera anicteric, conjunctiva are normal. ENT: TMs normal, nares patent, oropharynx clear without exudates. Moist mucous membranes. No oral ulcerations or bleeding gums noted NECK: supple without lymphadenopathy. Trachea is central. No cervical or axillary lymphadenopathy noted. Carotids are 2+, JVD WNL LUNGS: Respiration seems nonlabored, no significant accessory muscle action noted. Breath sounds clear to auscultation bilaterally and equal noted. No wheezes rales or rhonchi noted. No significant dullness noted on percussion. CHEST: Palpation of the chest wall shows no significant chest wall tenderness. No other significant abnormalities noted. HEART: [place] [employer], No PSH, 1/6 JENNIFER aortic area, 1/6 gimenez systolic murmur mitral area, no rubs, no gallops. ABDOMEN: Soft, no significant tenderness appreciated, normoactive bowel sounds. No guarding, no rebound. No rigidity noted . No masses appreciated. EXTREMITIES: Pedal pulses are 1-2+, no calf tenderness noted. No clubbing or cyanosis.trace pedal edema noted NEUROLOGICAL: Focused neurological exam showed no significant neurologic deficit. Normal speech, no focal weakness appreciated. PSYCH: Normal mood, normal affect. Judgment and insight within normal limits. SKIN: No significant ecchymosis, rash, ulcerations or signs of pruritus noted. MUSCULOSKELETAL EXAM: No significant joint swelling noted. Results Laboratory Results: 12/24/16 04:31 12/24/16 04:31 12/17/16 12/17/16 12/18/16 20:55 20:55 03:10 Creatine Kinase 98 108 CK-MB (CK-2) 1.76 Troponin I 0.019 NT-Pro-B Natriuret Pep 12/18/16 12/18/16 12/18/16 03:10 09:35 09:35 Creatine Kinase 99 CK-MB (CK-2) 1.73 1.65 Troponin I 0.023 0.022 NT-Pro-B Natriuret Pep 12/19/16 12/23/16 05:20 03:58 Creatine Kinase CK-MB (CK-2) Troponin I NT-Pro-B Natriuret Pep 6280 H 2310 H EKG Comments: Telemetry strip shows sinus rhythm no acute ST-T wave changes noted. Impressions: Abdomen/Pelvis CT 12/17/16 06:17 IMPRESSION: 1. IRREGULAR BLADDER WALL THICKENING, PRESUMABLY RELATED TO THE RECENT SURGICAL PROCEDURE. 2. RELATIVE THICKENING OF THE WALL OF THE DESCENDING AND SIGMOID COLON. THIS COULD BE ARTIFACT DUE TO POOR DISTENTION OR COULD BE RELATED TO INFLAMMATION. 3. NO OTHER SIGNIFICANT OR ACUTE FINDING IN THE ABDOMEN OR PELVIS ON CT SCAN WITH IV CONTRAST. Chest/Abdomen CTA 12/17/16 06:17 IMPRESSION: 1. NORMAL CTA OF THE CHEST. NO PULMONARY EMBOLI. 2. EXTENSIVE INFILTRATE IN THE RIGHT LUNG CONSISTENT WITH PNEUMONIA. 3. COPD WITH CHRONIC SCARRING. SURGICAL CHANGES. Chest X-Ray 12/24/16 10:40 IMPRESSION: SURGICAL CHANGES AND CHRONIC SCARRING. INTERVAL DEVELOPMENT OF INTERSTITIAL CHANGES IN THE RIGHT UPPER LOBE AND LEFT LOWER LOBE, CONCERNING FOR PNEUMONIA. Assessment & Plan - Diagnosis (1) Paroxysmal SVT (supraventricular tachycardia) Is this a current diagnosis for this admission?: Yes (2) Congestive heart failure Qualifiers: Congestive heart failure type: diastolic Is this a current diagnosis for this admission?: Yes (3) COPD (chronic obstructive pulmonary disease) Qualifiers: COPD type: unspecified COPD Qualified Code(s): J44.9 - Chronic obstructive pulmonary disease, unspecified Is this a current diagnosis for this admission?: Yes (4) Pneumonia Qualifiers: Pneumonia type: due to unspecified organism Laterality: bilateral Lung location: unspecified part of lung Qualified Code(s): J18.9 - Pneumonia, unspecified organism Is this a current diagnosis for this admission?: Yes (5) Hypertension Qualifiers: Hypertension type: essential hypertension Qualified Code(s): I10 - Essential (primary) hypertension Is this a current diagnosis for this admission?: Yes - Notes Notes: It seems patient was not getting regular p.o. Lasix. Have started patient back on Lasix 20 mg p.o. daily. Continue p.o. Cardizem for SVT. No other changes in cardiac medications performed. Chest x-ray from yesterday showed improved bilateral pneumonia. Patient had some interstitial prominence. Previous labs, x-ray findings discussed. Previous echocardiogram results discussed. Supraventricular tachycardia: No further recurrence noted on current medication. Most likely precipitated by pneumonia and COPD exacerbation. 2D echo results reviewed with the patient. Agree with Cardizem drip for the time being. Patient tolerating p.o. Cardizem. Treatment of primary condition, COPD and pneumonia might help reduce recurrence. Congestive heart failure: BNP level noted to be significantly elevated. Right ventricle is dilated. Feel that patient predominantly has right-sided heart failure with contribution from diastolic dysfunction. Continue on low-dose diuretic therapy. May consider BNP prior to discharge for follow-up. COPD exacerbation: Most likely related to pneumonia. Continue antibiotics, bronchodilators and steroid therapy as needed. Pneumonia: Seems bilateral on chest x-ray review. Patient is also status post lobectomy on the left side. Patient has poor pulmonary reserve. Continue aggressive antibiotic therapy. Clinically improved. Hypertension: Blood pressure in the reasonable control. Continue with current management plans. Patient to have oxygen supplementation, and possibly a sleep study as an outpatient. Today patient's was in the room. Management plans discussed. We will be happy to follow patient in the office. - Time Time with patient: Greater than 35 minutes - CODE STATUS was discussed, patient remains full code. Surrogate decision-maker unchanged. Multiple medical problems were addressed. More than 50% of the time spent coordinating care, discussing management plans with involved caregivers. Management plans discussed with involved personnels. Medical decision making was of moderate to high complexity, patient's has multiple comorbidities. Medications reviewed and adjusted accordingly: Yes
[2016-12-25] MEDS ORDERED: FUROSEMIDE 40 MG TABLET PO SCH (11:00)
[2016-12-25] MEDS ORDERED: FUROSEMIDE 20 MG TABLET PO ONE (11:30)
[2016-12-25] MEDS ORDERED: FUROSEMIDE 40 MG TABLET PO ONE (13:00)
[2016-12-25] MEDS: MAG HYDROX/AL HYDROX/SIMETH SUSP 30 ML UDCUP PO PRN (16:24)
--- NOTE | 2016-12-25 17:38 | PDOC PROGRESS REPORT ---
Subjective Progress Note for:: 12/24/16 Subjective:: Feeling a little better today Physical Exam Vital Signs: Temp Pulse Resp BP Pulse Ox 97.5 F 87 17 162/75 H 93 12/24/16 07:42 12/24/16 14:00 12/24/16 13:54 12/24/16 07:42 12/24/16 07:42 Intake & Output 12/23/16 12/24/16 12/25/16 06:59 06:59 06:59 Intake Total 1279 460 Output Total 1700 1900 Balance -421 -1440 Weight 94.2 kg 94.3 kg General appearance: PRESENT: cooperative, disheveled, well-developed Head exam: PRESENT: atraumatic, normocephalic Eye exam: PRESENT: conjunctiva pale, EOMI Mouth exam: PRESENT: moist, neck supple Neck exam: ABSENT: carotid bruit, JVD, lymphadenopathy, thyromegaly Respiratory exam: PRESENT: decreased breath sounds, prolonged expiratory phas, rhonchi, unlabored Cardiovascular exam: PRESENT: RRR, +S1, +S2 Pulses: PRESENT: normal radial pulses GI/Abdominal exam: PRESENT: normal bowel sounds, soft. ABSENT: distended, guarding, mass, organolmegaly, rebound, tenderness Rectal exam: PRESENT: deferred Musculoskeletal exam: PRESENT: normal inspection Neurological exam: PRESENT: awake Skin exam: PRESENT: dry, warm Results Laboratory Results: 12/24/16 04:31 12/24/16 04:31 12/24/16 12/24/16 04:31 04:31 WBC 6.7 RBC 3.51 L Hgb 10.4 L Hct 30.4 L MCV 87 MCH 29.6 MCHC 34.1 RDW 17.0 H Plt Count 269 Seg Neutrophils % 79.2 H Lymphocytes % 9.9 L Monocytes % 8.1 Eosinophils % 2.5 Basophils % 0.3 Absolute Neutrophils 5.3 Absolute Lymphocytes 0.7 Absolute Monocytes 0.5 Absolute Eosinophils 0.2 Absolute Basophils 0.0 Sodium 136.6 L Potassium 4.1 Chloride 100 Carbon Dioxide 26 Anion Gap 11 BUN 15 Creatinine 0.73 Est GFR ( Amer) > 60 Est GFR (Non-Af Amer) > 60 Glucose 248 H Calcium 8.5 12/17/16 12/17/16 12/18/16 20:55 20:55 03:10 Creatine Kinase 98 108 CK-MB (CK-2) 1.76 Troponin I 0.019 NT-Pro-B Natriuret Pep 12/18/16 12/18/16 12/18/16 03:10 09:35 09:35 Creatine Kinase 99 CK-MB (CK-2) 1.73 1.65 Troponin I 0.023 0.022 NT-Pro-B Natriuret Pep 12/19/16 12/23/16 05:20 03:58 Creatine Kinase CK-MB (CK-2) Troponin I NT-Pro-B Natriuret Pep 6280 H 2310 H Impressions: Abdomen/Pelvis CT 12/17/16 06:17 IMPRESSION: 1. IRREGULAR BLADDER WALL THICKENING, PRESUMABLY RELATED TO THE RECENT SURGICAL PROCEDURE. 2. RELATIVE THICKENING OF THE WALL OF THE DESCENDING AND SIGMOID COLON. THIS COULD BE ARTIFACT DUE TO POOR DISTENTION OR COULD BE RELATED TO INFLAMMATION. 3. NO OTHER SIGNIFICANT OR ACUTE FINDING IN THE ABDOMEN OR PELVIS ON CT SCAN WITH IV CONTRAST. Chest/Abdomen CTA 12/17/16 06:17 IMPRESSION: 1. NORMAL CTA OF THE CHEST. NO PULMONARY EMBOLI. 2. EXTENSIVE INFILTRATE IN THE RIGHT LUNG CONSISTENT WITH PNEUMONIA. 3. COPD WITH CHRONIC SCARRING. SURGICAL CHANGES. Chest X-Ray 12/24/16 10:40 IMPRESSION: SURGICAL CHANGES AND CHRONIC SCARRING. INTERVAL DEVELOPMENT OF INTERSTITIAL CHANGES IN THE RIGHT UPPER LOBE AND LEFT LOWER LOBE, CONCERNING FOR PNEUMONIA. Assessment & Plan - Diagnosis (1) Vocal cord cancer Is this a current diagnosis for this admission?: Yes (2) COPD (chronic obstructive pulmonary disease) Qualifiers: COPD type: unspecified COPD Qualified Code(s): J44.9 - Chronic obstructive pulmonary disease, unspecified Is this a current diagnosis for this admission?: Yes (3) Congestive heart failure Qualifiers: Congestive heart failure type: diastolic Is this a current diagnosis for this admission?: Yes (4) Pneumonia Qualifiers: Pneumonia type: due to unspecified organism Laterality: bilateral Lung location: unspecified part of lung Qualified Code(s): J18.9 - Pneumonia, unspecified organism Is this a current diagnosis for this admission?: Yes (5) Lung cancer, lower lobe Qualifiers: Laterality: left Qualified Code(s): C34.32 - Malignant neoplasm of lower lobe, left bronchus or lung Is this a current diagnosis for this admission?: Yes
--- NOTE | 2016-12-25 17:40 | PDOC PROGRESS REPORT ---
Subjective Progress Note for:: 12/25/16 Subjective:: Little better today Physical Exam Vital Signs: Temp Pulse Resp BP Pulse Ox 98.5 F 79 18 144/68 H 96 12/25/16 12:46 12/25/16 14:29 12/25/16 14:29 12/25/16 12:46 12/25/16 16:21 Intake & Output 12/24/16 12/25/16 12/26/16 06:59 06:59 06:59 Intake Total 460 1470 Output Total 1900 1600 Balance -1440 -130 Weight 94.3 kg 94.5 kg General appearance: PRESENT: no acute distress, cooperative, disheveled, well- developed Head exam: PRESENT: atraumatic, normocephalic Eye exam: PRESENT: conjunctiva pale, EOMI Mouth exam: PRESENT: moist, neck supple Neck exam: ABSENT: carotid bruit, JVD, lymphadenopathy, thyromegaly Respiratory exam: PRESENT: decreased breath sounds, prolonged expiratory phas, rhonchi, unlabored Cardiovascular exam: PRESENT: RRR, +S1, +S2 Pulses: PRESENT: normal radial pulses GI/Abdominal exam: PRESENT: normal bowel sounds, soft. ABSENT: distended, guarding, mass, organolmegaly, rebound, tenderness Rectal exam: PRESENT: deferred Musculoskeletal exam: PRESENT: normal inspection Neurological exam: PRESENT: awake Skin exam: PRESENT: dry, warm Results Laboratory Results: 12/24/16 04:31 12/24/16 04:31 12/17/16 12/17/16 12/18/16 20:55 20:55 03:10 Creatine Kinase 98 108 CK-MB (CK-2) 1.76 Troponin I 0.019 NT-Pro-B Natriuret Pep 12/18/16 12/18/16 12/18/16 03:10 09:35 09:35 Creatine Kinase 99 CK-MB (CK-2) 1.73 1.65 Troponin I 0.023 0.022 NT-Pro-B Natriuret Pep 12/19/16 12/23/16 05:20 03:58 Creatine Kinase CK-MB (CK-2) Troponin I NT-Pro-B Natriuret Pep 6280 H 2310 H Impressions: Abdomen/Pelvis CT 12/17/16 06:17 IMPRESSION: 1. IRREGULAR BLADDER WALL THICKENING, PRESUMABLY RELATED TO THE RECENT SURGICAL PROCEDURE. 2. RELATIVE THICKENING OF THE WALL OF THE DESCENDING AND SIGMOID COLON. THIS COULD BE ARTIFACT DUE TO POOR DISTENTION OR COULD BE RELATED TO INFLAMMATION. 3. NO OTHER SIGNIFICANT OR ACUTE FINDING IN THE ABDOMEN OR PELVIS ON CT SCAN WITH IV CONTRAST. Chest/Abdomen CTA 12/17/16 06:17 IMPRESSION: 1. NORMAL CTA OF THE CHEST. NO PULMONARY EMBOLI. 2. EXTENSIVE INFILTRATE IN THE RIGHT LUNG CONSISTENT WITH PNEUMONIA. 3. COPD WITH CHRONIC SCARRING. SURGICAL CHANGES. Chest X-Ray 12/24/16 10:40 IMPRESSION: SURGICAL CHANGES AND CHRONIC SCARRING. INTERVAL DEVELOPMENT OF INTERSTITIAL CHANGES IN THE RIGHT UPPER LOBE AND LEFT LOWER LOBE, CONCERNING FOR PNEUMONIA. Assessment & Plan - Diagnosis (1) Vocal cord cancer Is this a current diagnosis for this admission?: Yes (2) COPD (chronic obstructive pulmonary disease) Qualifiers: COPD type: unspecified COPD Qualified Code(s): J44.9 - Chronic obstructive pulmonary disease, unspecified Is this a current diagnosis for this admission?: Yes (3) Congestive heart failure Qualifiers: Congestive heart failure type: diastolic Is this a current diagnosis for this admission?: Yes (4) Pneumonia Qualifiers: Pneumonia type: due to unspecified organism Laterality: bilateral Lung location: unspecified part of lung Qualified Code(s): J18.9 - Pneumonia, unspecified organism Is this a current diagnosis for this admission?: Yes (5) Lung cancer, lower lobe Qualifiers: Laterality: left Qualified Code(s): C34.32 - Malignant neoplasm of lower lobe, left bronchus or lung Is this a current diagnosis for this admission?: Yes
[2016-12-25] MEDS: ACETAMINOPHEN 325 MG TABLET PO PRN (20:43)
[2016-12-25] MEDS: SERTRALINE HCL 50 MG TABLET PO SCH (21:37)
[2016-12-25] MEDS: TRAZODONE HCL 50 MG TABLET PO SCH (21:38)
[2016-12-25] MEDS: MIRTAZAPINE 15 MG TABLET PO SCH (21:38)
[2016-12-26] MEDS: ALBUTEROL SULFATE 0.083% NEB 2.5 MG/3 ML AMPUL NEB SCH ×3 (02:05→14:03)
--- NOTE | 2016-12-26 08:22 | PDOC DISCHARGE SUMMARY ---
General - Admit/Disc Date/PCP Admission Date/Primary Care Provider: 12/17/16 10:12 Discharge Date: 12/26/16 - Discharge Diagnosis (1) Pneumonia Is this a current diagnosis for this admission?: Yes (2) Anemia in chronic illness Is this a current diagnosis for this admission?: Yes (3) Congestive heart failure Is this a current diagnosis for this admission?: Yes (4) Supraventricular tachycardia Is this a current diagnosis for this admission?: Yes (5) COPD (chronic obstructive pulmonary disease) Is this a current diagnosis for this admission?: Yes (6) Congestive heart failure Is this a current diagnosis for this admission?: Yes (7) Hyperlipidemia Is this a current diagnosis for this admission?: Yes (8) Hypertension Is this a current diagnosis for this admission?: Yes - Additional Information Resuscitation Status: Full Code Discharge Diet: Cardiac - low fat low salt, Diabetic - no concentrated sweets Discharge Activity: Activity As Tolerated, Balance Activity w/Rest Home Medications: Acetaminophen [Tylenol] 325 mg PO Q4 PRN 12/17/16 Aspirin [Aspirin 325 mg Tablet] 325 mg PO DAILY 12/17/16 Cholecalciferol (Vitamin D3) [Vitamin D3 1000 Unit Tablet] 1,000 unit PO DAILY 12/17/16 Insulin Aspart [Novolog Insulin (Aspart) 100 unit/mL] 0 units SQ .PUMP 12/17/16 Mirtazapine [Remeron 15 mg Tablet] 7.5 mg PO QHS 12/17/16 Multivitamin [Multivitamins] 1 cap PO DAILY 12/17/16 Sertraline HCl [Zoloft] 150 mg PO QHS 12/17/16 Trazodone HCl [Desyrel] 150 mg PO QHS 12/17/16 Albuterol Sulfate [Ventolin 0.083% Neb 2.5 mg/3 mL Ampul] 2.5 mg NEB RTQ6 vial.neb 12/26/16 Diltiazem HCl [Cardizem Cd 120 mg Capsule] 120 mg PO Q12 #60 cap.sr.24h Furosemide [Lasix 20 mg Tablet] 20 mg PO DAILY #30 tablet 12/26/16 Levofloxacin [Levaquin 750 mg Tablet] 750 mg PO DAILY #4 tablet 12/26/16 Potassium Chloride [Kaon-Cl 20 Meq/15 ml Udcup] 20 meq PO DAILY #30 udc History of Present Illness Patient complains of: Shortness of breath History of Present Illness: LITA LANG is a 71 year old male who has a history of COPD and lung cancer who was discharged from the [facility] yesterday after having a TURB for bladder cancer. Reports he woke up this morning with a productive cough and shortness of breath. Patient denies having any fever. The patient presented to the emergency room and was found to have a right middle lobe pneumonia. The patient denies having any chest pain associated with this. He did have his bladder surgery yesterday but has had some pain hematuria but no other complications. The patient had an episode of SVT and was treated with adenosine. The patient has a history of lung cancer and had resection with a left lower lobectomy in June of this year. He is a former smoker but has not smoked for many years. For details please refer to physical examination and history performed by the admitting physician. Hospital Course Hospital Course: The patient was admitted to [facility]. Patient was diagnosed with a pneumonia complicated by supraventricular tachycardia and congestive heart failure. Cardiology was consulted. Echocardiogram revealed a normal ejection fraction however. The patient was started on broad-spectrum antibiotics, diuretics and Cardizem. He has underlying COPD and he was placed on bronchodilators as well. Supplemental oxygen was given. Subsequently with the above measures the patient improved. Physical therapy was instituted. Other workups include, cardiac enzymes that were neg., CT of the chest which confirmed a pneumonic infiltrate, CT of the abdomen and pelvis showing irregularities in the bladder wall which could be from recent procedure or inflammation. Patient however did not show any signs and symptoms related to the findings. The patient slowly improved with time. He was weaned off the oxygen however on room air he desaturates in the 80s after about a week of treatment. operations planner was therefore consulted for home oxygen and this was arranged. Physical Exam Vital Signs: Temp Pulse Resp BP Pulse Ox 98.3 F 77 18 135/60 H 96 12/26/16 03:27 12/26/16 06:59 12/26/16 03:27 12/26/16 03:27 12/26/16 03:27 Intake & Output 12/25/16 12/26/16 12/27/16 06:59 06:59 06:59 Intake Total 1470 510 Output Total 1600 2200 Balance -130 -1690 Weight 94.5 kg 86.5 kg General appearance: PRESENT: no acute distress, cooperative Head exam: PRESENT: normocephalic Eye exam: PRESENT: EOMI Mouth exam: PRESENT: moist, neck supple Neck exam: ABSENT: JVD Respiratory exam: PRESENT: clear to auscultation grisel, decreased breath sounds Cardiovascular exam: PRESENT: RRR. ABSENT: gallop GI/Abdominal exam: PRESENT: normal bowel sounds, soft. ABSENT: distended, tenderness Extremities exam: ABSENT: pedal edema Neurological exam: PRESENT: alert, awake, oriented to person, oriented to place , oriented to time, oriented to situation Skin exam: PRESENT: dry, warm. ABSENT: cyanosis Results Laboratory Results: 12/24/16 04:31 12/24/16 04:31 12/17/16 12/17/16 12/18/16 20:55 20:55 03:10 Creatine Kinase 98 108 CK-MB (CK-2) 1.76 Troponin I 0.019 NT-Pro-B Natriuret Pep 12/18/16 12/18/16 12/18/16 03:10 09:35 09:35 Creatine Kinase 99 CK-MB (CK-2) 1.73 1.65 Troponin I 0.023 0.022 NT-Pro-B Natriuret Pep 12/19/16 12/23/16 05:20 03:58 Creatine Kinase CK-MB (CK-2) Troponin I NT-Pro-B Natriuret Pep 6280 H 2310 H Impressions: Abdomen/Pelvis CT 12/17/16 06:17 IMPRESSION: 1. IRREGULAR BLADDER WALL THICKENING, PRESUMABLY RELATED TO THE RECENT SURGICAL PROCEDURE. 2. RELATIVE THICKENING OF THE WALL OF THE DESCENDING AND SIGMOID COLON. THIS COULD BE ARTIFACT DUE TO POOR DISTENTION OR COULD BE RELATED TO INFLAMMATION. 3. NO OTHER SIGNIFICANT OR ACUTE FINDING IN THE ABDOMEN OR PELVIS ON CT SCAN WITH IV CONTRAST. Chest/Abdomen CTA 12/17/16 06:17 IMPRESSION: 1. NORMAL CTA OF THE CHEST. NO PULMONARY EMBOLI. 2. EXTENSIVE INFILTRATE IN THE RIGHT LUNG CONSISTENT WITH PNEUMONIA. 3. COPD WITH CHRONIC SCARRING. SURGICAL CHANGES. Chest X-Ray 12/24/16 10:40 IMPRESSION: SURGICAL CHANGES AND CHRONIC SCARRING. INTERVAL DEVELOPMENT OF INTERSTITIAL CHANGES IN THE RIGHT UPPER LOBE AND LEFT LOWER LOBE, CONCERNING FOR PNEUMONIA. Qualifiers PATEINT BEING DISCHARGED WITH ANY OF THE FOLLOWING DIAGNOSIS?: Heart Failure HF Pt being discharged on ACEI for LVEF less than 40%?: No Reason(s) for not prescribing ACEI:: Not indicated - Normal ejection fraction HF Pt being discharged on ARBS for LVEF less than 40%?: No Reason(s) for not prescribing ARBS:: Not indicated - Normal ejection fraction HF Pt with Afib discharged with Warfarin?: No Reason(s) for not prescribing Warfarin:: Not indicated - No atrial fibrillation HF Pt discharged on evidence-based Beta Mirna:: No Plan Discharge Plan: Follow-up with primary care physician in 1 week. Follow-up with cardiology Dr. Rooney in 2 weeks. Follow-up with oncology Dr. Grimm in 2 weeks. Time Spent: Less than 30 Minutes
[2016-12-26] MEDS ORDERED: FUROSEMIDE 20 MG TABLET PO SCH (10:00)
[2016-12-26] MEDS: LEVOFLOXACIN 750 MG TABLET PO SCH (10:17)
[2016-12-26] MEDS: FAMOTIDINE 20 MG TABLET PO SCH (10:17)
[2016-12-26] MEDS: CHOLECALCIFEROL (D3) 1,000 UNIT TABLET PO SCH (10:17)
[2016-12-26] MEDS: ASPIRIN 325 MG TABLET PO SCH (10:17)
[2016-12-26] MEDS: HYDROCHLOROTHIAZIDE 25 MG TABLET PO SCH (10:17)
[2016-12-26] MEDS: POTASSIUM CHLORIDE 20 MEQ/15 ML UDCUP PO SCH (10:18)
[2016-12-26] MEDS: DILTIAZEM HCL 120 MG CAP.SR.24H PO SCH (10:18)
[2016-12-26] MEDS: MULTIVITAMIN TABLET PO SCH (10:18)
[2016-12-26] MEDS: ACETAMINOPHEN 325 MG TABLET PO PRN (10:24)
--- NOTE | 2016-12-26 11:14 | PDOC PROGRESS REPORT ---
Subjective Progress Note for:: 12/26/16 Subjective:: Pt is denying any chest arm or neck discomfort. Patient noted to be significantly better. Currently on nasal cannula oxygen supplementation. Able to lay flat and is resting comfortably. Patient denying any PND, orthopnea. Patient denied any sustained palpitations, dizziness, syncope, near syncope. Patient denying any fever chills. Patient denying any other significant discomfort. Patient on nightly bilevel therapy. He is on oxygen supplementation. Patient is maintaining sinus rhythm. Rhythm strip reviewed showed no further recurrence of SVT Review of systems: Rest review of systems negative. Medications: Medications have been reviewed. Physical Exam Vital Signs: Temp Pulse Resp BP Pulse Ox 98.3 F 90 18 154/61 H 97 12/26/16 08:22 12/26/16 08:42 12/26/16 08:42 12/26/16 08:22 12/26/16 08:42 Intake & Output 12/25/16 12/26/16 12/27/16 06:59 06:59 06:59 Intake Total 1470 510 Output Total 1600 2200 Balance -130 -1690 Weight 94.5 kg 86.5 kg Exam: GENERAL: well-nourished and in no acute distress. Alert and oriented x3 HEAD: Atraumatic, normocephalic. EYES: Pupils equal round and reactive to light, extraocular movements intact, sclera anicteric, conjunctiva are normal. ENT: TMs normal, nares patent, oropharynx clear without exudates. Moist mucous membranes. No oral ulcerations or bleeding gums noted NECK: supple without lymphadenopathy. Trachea is central. No cervical or axillary lymphadenopathy noted. Carotids are 2+, JVD WNL LUNGS: Respiration seems nonlabored, no significant accessory muscle action noted. Few bibasilar crackles are noted. No dullness noted on percussion. CHEST: Palpation of the chest wall shows no significant chest wall tenderness. No other significant abnormalities noted. HEART: Loyal DIRECTOR INVESTOR RELATIONS, No PSH, 1/6 JENNIFER aortic area, 1/6 gimenez systolic murmur mitral area, no rubs, no gallops. ABDOMEN: Soft, no significant tenderness appreciated, normoactive bowel sounds. No guarding, no rebound. No rigidity noted . No masses appreciated. EXTREMITIES: Pedal pulses are 1-2+, no calf tenderness noted. No clubbing or cyanosis. Negative pedal edema noted NEUROLOGICAL: Focused neurological exam showed no significant neurologic deficit. Normal speech, no focal weakness appreciated. PSYCH: Normal mood, normal affect. Judgment and insight within normal limits. SKIN: No significant ecchymosis, rash, ulcerations or signs of pruritus noted. MUSCULOSKELETAL EXAM: No significant joint swelling noted. Results Laboratory Results: 12/24/16 04:31 12/24/16 04:31 12/17/16 12/17/16 12/18/16 20:55 20:55 03:10 Creatine Kinase 98 108 CK-MB (CK-2) 1.76 Troponin I 0.019 NT-Pro-B Natriuret Pep 12/18/16 12/18/16 12/18/16 03:10 09:35 09:35 Creatine Kinase 99 CK-MB (CK-2) 1.73 1.65 Troponin I 0.023 0.022 NT-Pro-B Natriuret Pep 12/19/16 12/23/16 05:20 03:58 Creatine Kinase CK-MB (CK-2) Troponin I NT-Pro-B Natriuret Pep 6280 H 2310 H EKG Comments: Telemetry strips shows sinus rhythm with rare APCs and VPCs Impressions: Abdomen/Pelvis CT 12/17/16 06:17 IMPRESSION: 1. IRREGULAR BLADDER WALL THICKENING, PRESUMABLY RELATED TO THE RECENT SURGICAL PROCEDURE. 2. RELATIVE THICKENING OF THE WALL OF THE DESCENDING AND SIGMOID COLON. THIS COULD BE ARTIFACT DUE TO POOR DISTENTION OR COULD BE RELATED TO INFLAMMATION. 3. NO OTHER SIGNIFICANT OR ACUTE FINDING IN THE ABDOMEN OR PELVIS ON CT SCAN WITH IV CONTRAST. Chest/Abdomen CTA 12/17/16 06:17 IMPRESSION: 1. NORMAL CTA OF THE CHEST. NO PULMONARY EMBOLI. 2. EXTENSIVE INFILTRATE IN THE RIGHT LUNG CONSISTENT WITH PNEUMONIA. 3. COPD WITH CHRONIC SCARRING. SURGICAL CHANGES. Chest X-Ray 12/24/16 10:40 IMPRESSION: SURGICAL CHANGES AND CHRONIC SCARRING. INTERVAL DEVELOPMENT OF INTERSTITIAL CHANGES IN THE RIGHT UPPER LOBE AND LEFT LOWER LOBE, CONCERNING FOR PNEUMONIA. Assessment & Plan - Diagnosis (1) Paroxysmal SVT (supraventricular tachycardia) Is this a current diagnosis for this admission?: Yes (2) Congestive heart failure Qualifiers: Congestive heart failure type: diastolic Is this a current diagnosis for this admission?: Yes (3) COPD (chronic obstructive pulmonary disease) Qualifiers: COPD type: unspecified COPD Qualified Code(s): J44.9 - Chronic obstructive pulmonary disease, unspecified Is this a current diagnosis for this admission?: Yes (4) Pneumonia Qualifiers: Pneumonia type: due to unspecified organism Laterality: bilateral Lung location: unspecified part of lung Qualified Code(s): J18.9 - Pneumonia, unspecified organism Is this a current diagnosis for this admission?: Yes (5) Hypertension Qualifiers: Hypertension type: essential hypertension Qualified Code(s): I10 - Essential (primary) hypertension Is this a current diagnosis for this admission?: Yes (6) Sleep-disordered breathing Is this a current diagnosis for this admission?: Yes - Notes Notes: Yesterday started patient back on Lasix 20 mg p.o. daily. Continue p.o. Cardizem for SVT. No other changes in cardiac medications performed. Previous labs, x-ray findings discussed. Previous echocardiogram results discussed. Supraventricular tachycardia: No further recurrence noted on current medication. Most likely precipitated by pneumonia and COPD exacerbation. 2D echo results reviewed with the patient. Agree with Cardizem drip for the time being. Patient tolerating p.o. Cardizem. Treatment of primary condition, COPD and pneumonia might help reduce recurrence. Congestive heart failure: BNP level noted to be significantly elevated. Right ventricle is dilated. Feel that patient predominantly has right-sided heart failure with contribution from diastolic dysfunction. Continue on low-dose diuretic therapy. May consider BNP prior to discharge for follow-up. COPD exacerbation: Most likely related to pneumonia. Continue antibiotics, bronchodilators and steroid therapy as needed. Pneumonia: Seems bilateral on chest x-ray review. Patient is also status post lobectomy on the left side. Patient has poor pulmonary reserve. Continue aggressive antibiotic therapy. Clinically improved. Hypertension: Blood pressure in the reasonable control. Continue with current management plans. Sleep disordered breathing: Patient does have history of snoring, daytime fatigue and sleepiness. Patient will benefit from a sleep study. Patient to have oxygen supplementation, and possibly a sleep study as an outpatient. Management plans discussed. We will be happy to follow patient in the office. - Time Time with patient: Greater than 35 minutes - CODE STATUS was discussed, patient remains full code. Surrogate decision-maker unchanged. Multiple medical problems were addressed. More than 50% of the time spent coordinating care, discussing management plans with involved caregivers. Management plans discussed with involved personnels. Medical decision making was of moderate to high complexity, patient's has multiple comorbidities. Medications reviewed and adjusted accordingly: Yes
[2016-12-26 13:56] VITALS: BP 138/57
--- NOTE | 2016-12-26 18:11 | PDOC PROGRESS REPORT ---
Subjective Progress Note for:: 12/26/16 Subjective:: Feeling a lot better Physical Exam Vital Signs: Temp Pulse Resp BP Pulse Ox 98.2 F 92 18 154/78 H 97 12/26/16 13:06 12/26/16 14:05 12/26/16 14:05 12/26/16 13:06 12/26/16 14:05 Intake & Output 12/25/16 12/26/16 12/27/16 06:59 06:59 06:59 Intake Total 1470 510 675 Output Total 1600 2200 1200 Balance -130 -1690 -525 Weight 94.5 kg 86.5 kg General appearance: PRESENT: no acute distress, cooperative, disheveled, well- developed Head exam: PRESENT: atraumatic, normocephalic Eye exam: PRESENT: conjunctiva pale, EOMI Mouth exam: PRESENT: dry mucosa, neck supple, tongue midline Neck exam: ABSENT: carotid bruit, JVD, lymphadenopathy, thyromegaly Respiratory exam: PRESENT: decreased breath sounds, prolonged expiratory phas, rhonchi, symmetrical, unlabored, other - Significant improvement in breath sounds over the last 24 hours Cardiovascular exam: PRESENT: RRR, +S1, +S2 Pulses: PRESENT: normal radial pulses GI/Abdominal exam: PRESENT: normal bowel sounds, soft. ABSENT: distended, guarding, mass, organolmegaly, rebound, tenderness Rectal exam: PRESENT: deferred Musculoskeletal exam: PRESENT: normal inspection Neurological exam: PRESENT: alert, awake Psychiatric exam: PRESENT: normal mood Skin exam: PRESENT: dry, warm Results Laboratory Results: 12/24/16 04:31 12/24/16 04:31 12/17/16 12/17/16 12/18/16 20:55 20:55 03:10 Creatine Kinase 98 108 CK-MB (CK-2) 1.76 Troponin I 0.019 NT-Pro-B Natriuret Pep 12/18/16 12/18/16 12/18/16 03:10 09:35 09:35 Creatine Kinase 99 CK-MB (CK-2) 1.73 1.65 Troponin I 0.023 0.022 NT-Pro-B Natriuret Pep 12/19/16 12/23/16 05:20 03:58 Creatine Kinase CK-MB (CK-2) Troponin I NT-Pro-B Natriuret Pep 6280 H 2310 H Impressions: Abdomen/Pelvis CT 12/17/16 06:17 IMPRESSION: 1. IRREGULAR BLADDER WALL THICKENING, PRESUMABLY RELATED TO THE RECENT SURGICAL PROCEDURE. 2. RELATIVE THICKENING OF THE WALL OF THE DESCENDING AND SIGMOID COLON. THIS COULD BE ARTIFACT DUE TO POOR DISTENTION OR COULD BE RELATED TO INFLAMMATION. 3. NO OTHER SIGNIFICANT OR ACUTE FINDING IN THE ABDOMEN OR PELVIS ON CT SCAN WITH IV CONTRAST. Chest/Abdomen CTA 12/17/16 06:17 IMPRESSION: 1. NORMAL CTA OF THE CHEST. NO PULMONARY EMBOLI. 2. EXTENSIVE INFILTRATE IN THE RIGHT LUNG CONSISTENT WITH PNEUMONIA. 3. COPD WITH CHRONIC SCARRING. SURGICAL CHANGES. Chest X-Ray 12/24/16 10:40 IMPRESSION: SURGICAL CHANGES AND CHRONIC SCARRING. INTERVAL DEVELOPMENT OF INTERSTITIAL CHANGES IN THE RIGHT UPPER LOBE AND LEFT LOWER LOBE, CONCERNING FOR PNEUMONIA. Assessment & Plan - Diagnosis (1) Vocal cord cancer Is this a current diagnosis for this admission?: Yes (2) COPD (chronic obstructive pulmonary disease) Qualifiers: COPD type: unspecified COPD Qualified Code(s): J44.9 - Chronic obstructive pulmonary disease, unspecified Is this a current diagnosis for this admission?: Yes (3) Congestive heart failure Qualifiers: Congestive heart failure type: diastolic Is this a current diagnosis for this admission?: Yes (4) Pneumonia Qualifiers: Pneumonia type: due to unspecified organism Laterality: bilateral Lung location: unspecified part of lung Qualified Code(s): J18.9 - Pneumonia, unspecified organism Is this a current diagnosis for this admission?: Yes (5) Lung cancer, lower lobe Qualifiers: Laterality: left Qualified Code(s): C34.32 - Malignant neoplasm of lower lobe, left bronchus or lung Is this a current diagnosis for this admission?: Yes - Plan Summary Plan Summary: O2 and bi-pap at discharge
--- NOTE | 2017-01-07 11:20 | Progress Note ---
Provider Note Provider Note: Addendum on discharge summary 12/26/16. Pneumonia likely aspiration.
== END 2016-12-26 14:28 | disposition home health service (06) | DRG 178 ==
LOC: ER 05:27 → EH 10:03 → UNDOADMIN 10:03 → EH 10:12 → 3N 13:16
PROVIDERS: ADMIT Internal Medicine; ATTEND Internal Medicine
PROC: 3E0F73Z Introduction of Anti-inflammatory into Respiratory Tract, Via Natural or Artificial Opening (ICD-10-PCS; principal; 2016-12-17)
PROC: 5A09557 Assistance with Respiratory Ventilation, Greater than 96 Consecutive Hours, Continuous Positive Airway Pressure (ICD-10-PCS; 2016-12-19)
DX: J69.0 Pneumonitis due to inhalation of food and vomit (principal); I47.1 Supraventricular tachycardia; J44.1 Chronic obstructive pulmonary disease with (acute) exacerbation; I50.32 Chronic diastolic (congestive) heart failure; E78.5 Hyperlipidemia, unspecified; E10.9 Type 1 diabetes mellitus without complications; K21.9 Gastro-esophageal reflux disease without esophagitis; F32.9 Major depressive disorder, single episode, unspecified; F41.9 Anxiety disorder, unspecified; C67.9 Malignant neoplasm of bladder, unspecified; Z96.41 Presence of insulin pump (external) (internal); I11.0 Hypertensive heart disease with heart failure; D64.9 Anemia, unspecified; G47.30 Sleep apnea, unspecified; Z88.6 Allergy status to analgesic agent; Z98.890 Other specified postprocedural states; Z87.891 Personal history of nicotine dependence; Z85.118 Personal history of other malignant neoplasm of bronchus and lung; Z85.21 Personal history of malignant neoplasm of larynx; Z90.2 Acquired absence of lung [part of]; Z82.49 Family history of ischemic heart disease and other diseases of the circulatory system
CPT/HCPCS: 36415; 71010; 71020; 71275; 74177; 80048; 80053; 82550; 82553; 82962; 83605; 83735; 83880; 84484; 85025; 87040; 87070; 87205; 93005; 93010; 93306; 94640; 94660; 96361; 96365; 96375; 99291; G8978-GP; G8979-GP; J0153; J1650; J1815; J1885; J1940; J1956; J2405; J2930; J3480; J3490; J7030; J7620

== ENCOUNTER 2017-05-16 21:41 | Emergency (ER) | payer OTHER, MEDICARE, BC ==
[2017-05-16] MEDS ORDERED: PIPERACILLIN/TAZOBACTAM 4.5 GM VIAL IV ONE (21:53)
[2017-05-16] MEDS ORDERED: NORMAL SALINE 1000 ML 1,000 ML IV ONE (21:53)
--- NOTE | 2017-05-16 22:00 | ER Document Report ---
ED General Pain - General Stated Complaint: FLANK PAIN Time Seen by Provider: 05/16/17 21:53 Notes: 71 years old male presents today with bilateral flank pain, fever chills of 1 day duration. He was seen at the [facility] for unknown renal pathology. He had a biopsy done over bilateral renal region as well as placed a stent. This morning he was asked to pull the string and the stent out which he did. After that started having fever and chills. He also had increased bilateral flank pain. He called EMS and EMS on route gave Dilaudid 1 mg IV and Zofran 4 mg, stabilized him and brought him to the ED. He also has been coughing on and off for the last few days. TRAVEL OUTSIDE OF THE [place] IN LAST 30 DAYS: No - Related Data Allergies/Adverse Reactions: divalproex sodium [From Depakote] Allergy (Verified 09/07/16 13:36) codeine Adverse Reaction (Verified 09/07/16 13:36) Past Medical History - Social History Smoking Status: Former Smoker Family History: Hyperlipidemia, Hypertension - Past Medical History Cardiac Medical History: Reports: Hx Hypercholesterolemia, Hx Hypertension Pulmonary Medical History: Reports: Hx COPD Endocrine Medical History: Reports: Hx Diabetes Mellitus Type 1, Hx Diabetes Mellitus Type 2 Malignancy Medical History: Reports Hx Lung Cancer GI Medical History: Reports: Hx Gastroesophageal Reflux Disease Psychiatric Medical History: Reports: Hx Depression - years ago Past Surgical History: Reports: Other - left thoracotomy, left lower lobectomy , - Immunizations Hx Pneumococcal Vaccination: 06/02/16 Review of Systems - Review of Systems Notes: REVIEW OF SYSTEMS: CONSTITUTIONAL : Denies fever, chills, or sweats. Denies recent illness. EENT: Denies eye, ear, throat, or mouth pain or symptoms. Denies nasal or sinus congestion or discharge. Denies throat, tongue, or mouth swelling or difficulty swallowing. CARDIOVASCULAR: Denies chest pain. Denies palpitations or racing or irregular heart beat. Denies ankle edema. RESPIRATORY: Denies cough, cold, or chest congestion. Denies shortness of breath, difficulty breathing, or wheezing. GASTROINTESTINAL: Denies abdominal pain or distention. Denies nausea, vomiting , or diarrhea. Denies blood in vomitus, stools, or per rectum. Denies black, tarry stools. Denies constipation. GENITOURINARY: As per history of complain MUSCULOSKELETAL: Denies back or neck pain or stiffness. Denies joint pain or swelling. SKIN: Denies rash, lesions or sores. HEMATOLOGIC : Denies easy bruising or bleeding. LYMPHATIC: Denies swollen, enlarged glands. NEUROLOGICAL: Denies confusion or altered mental status. Denies passing out or loss of consciousness. Denies dizziness or lightheadedness. Denies headache. Denies weakness or paralysis or loss of use of either side. Denies problems with gait or speech. Denies sensory loss, numbness, or tingling. Denies seizures. PSYCHIATRIC: Denies anxiety or stress. Denies depression, suicidal ideation, or homicidal ideation. ALL OTHER SYSTEMS REVIEWED AND NEGATIVE. Dictation was performed using [employer] voice recognition software PHYSICAL EXAMINATION: GENERAL: Seems to be moderate discomfort. HEAD: Atraumatic, normocephalic. EYES: Pupils equal round and reactive to light, extraocular movements intact, sclera anicteric, conjunctiva are normal. ENT: Nares patent, oropharynx clear without exudates. Moist mucous membranes. NECK: Normal range of motion, supple without lymphadenopathy LUNGS: Left lower lobe crackles were heard with scattered rhonchi, rest of the lung field is clear HEART: Regular rate and rhythm without murmurs ABDOMEN: Soft, diffuse mild tenderness, bilateral flank tenderness noted, nondistended abdomen. No guarding, no rebound. No masses appreciated. Musculoskeletal: Normal range of motion, no pitting or edema. No cyanosis. NEUROLOGICAL: Cranial nerves grossly intact. Normal speech, normal gait. Normal sensory, motor exams PSYCH: Normal mood, normal affect. SKIN: Warm, Dry, normal turgor, no rashes or lesions noted. Physical Exam - Vital signs Vitals: Temp Pulse Resp BP Pulse Ox 99.6 F 100 24 H 198/74 H 97 05/16/17 22:03 05/16/17 22:03 05/16/17 22:03 05/16/17 22:03 05/16/17 22:03 Course - Re-evaluation Re-evalutation: 05/17/17 00:41 Reevaluated multiple times, arrangements to transfer to [place] done, CT of the abdomen ordered. [facility]. - Vital Signs Vital signs: Temp Pulse Resp BP Pulse Ox 99.6 F 100 24 H 198/74 H 97 05/16/17 22:03 05/16/17 22:03 05/16/17 22:03 05/16/17 22:03 05/16/17 22:03 - Laboratory Result Diagrams: 05/16/17 22:41 05/16/17 22:41 Laboratory results interpreted by me: 05/16/17 05/16/17 05/16/17 22:41 22:41 22:41 WBC 11.2 H RBC 4.07 L Hgb 12.2 L Hct 36.8 L RDW 14.3 H Seg Neuts % (Manual) 90 H Lymphocytes % (Manual) 2 L Abs Neuts (Manual) 10.1 H Abs Lymphs (Manual) 0.2 L VBG pH 7.46 H VBG pCO2 32.6 L Carbon Dioxide 20 L BUN 24 H Glucose 330 H Direct Bilirubin 0.5 H - EKG Interpretation by Me EKG shows normal: Sinus rhythm - The rate of 98 bpm normal axis no acute ST elevation ST depression T-wave inversion noted. Normal cardiogram - Transfer of Care Care transferred to following provider: Notes: 05/17/17 00:40 Patient pending transfer to [facility]. The case was discussed with Dr. Perry at [facility]. [place] [facility] will call back to confirm the transfer and arrangements. We might have to give a brief history to them again. Critical Care Note - Critical Care Note Total time excluding time spent on procedures (mins): 60 Comments: Urosepsis Discharge - Discharge Clinical Impression: Sepsis Qualifiers: Sepsis type: sepsis due to unspecified organism Qualified Code(s): A41.9 - Sepsis, unspecified organism UTI (urinary tract infection) Qualifiers: Urinary tract infection type: catheter-associated UTI Indwelling urinary catheter type: cystostomy catheter Encounter type: initial encounter Qualified Code(s): T83.510A - Infection and inflammatory reaction due to cystostomy catheter, initial encounter; N39.0 - Urinary tract infection, site not specified ; N39.0 - Urinary tract infection, site not specified Abdominal pain Qualifiers: Abdominal location: generalized Qualified Code(s): R10.84 - Generalized abdominal pain Condition: Fair Disposition: [place]
--- NOTE | 2017-05-16 22:35 | RADIOLOGY REPORT (SQ) ---
EXAM DESCRIPTION: CHEST SINGLE VIEW COMPLETED DATE/TIME: 05/16/2017 10:18 pm REASON FOR STUDY: Pneumonia COMPARISON: 12/24/2016 EXAM PARAMETERS: NUMBER OF VIEWS: One view. TECHNIQUE: Single frontal radiographic view of the chest acquired. RADIATION DOSE: NA LIMITATIONS: None. FINDINGS: LUNGS AND PLEURA: Persistent or recurrent airspace-interstitial opacities in the left lung base. Left Subpleural scarring -effusion appears similar. Right lung shows no consolidation or ple ural effusion. Similar apical scarring bilaterally. MEDIASTINUM AND HILAR STRUCTURES: Stable. HEART AND VASCULAR STRUCTURES: Stable. BONES: No acute findings. HARDWARE: None in the chest. OTHER: No other significant finding. IMPRESSION: Persistent or recurrent airspace-interstitial opacities in the left lung base. Left Sub pleural scarring -effusion appears similar. TECHNICAL DOCUMENTATION: JOB ID: [id number] [place]-72 2010 [employer]- All Rights Reserved
[2017-05-16] MEDS ORDERED: PROMETHAZINE HCL INJ 50 MG/1 ML VIAL IM PRN (22:49)
[2017-05-16 22:55] LABS: VENOUS BLOOD BASE EXCESS -0.4 mmol/L; VENOUS BLOOD HCO3 22.8 mmol/L (20-32); VENOUS BLOOD PCO2 32.6 mmHg (35-63); VENOUS BLOOD PH 7.46 (7.30-7.42)
[2017-05-16 23:07] LABS: HEMATOCRIT 36.8 % (37.9-51.0); HEMOGLOBIN 12.2 g/dL (13.5-17.0); HGB HCT DIFFERENCE -0.2; MEAN CORPUSCULAR HEMOGLOBIN 29.8 pg (27.0-33.4); MEAN CORPUSCULAR VOLUME 91 fl (80-97); RED BLOOD COUNT 4.07 10^6/uL (4.35-5.55); RED CELL DISTRIBUTION WIDTH 14.3 % (11.5-14.0); WHITE BLOOD COUNT 11.2 10^3/uL (4.0-10.5)
[2017-05-16 23:09] LABS: ALANINE AMINOTRANSFERASE 34 U/L (21-72); ALBUMIN 3.6 g/dL (3.5-5.0); ALKALINE PHOSPHATASE 87 U/L (38-126); ANION GAP 14 (5-19); ASPARTATE AMINO TRANSFERASE 44 U/L (17-59); BILIRUBIN,DIRECT 0.5 mg/dL (0.0-0.4); BILIRUBIN,TOTAL 0.6 mg/dL (0.2-1.3); BLOOD UREA NITROGEN 24 mg/dL (7-20); CALCIUM 8.9 mg/dL (8.4-10.2); CARBON DIOXIDE 20 mmol/L (22-30); CHLORIDE 105 mmol/L (98-107); CREATININE RESULT 1.18 mg/dL (0.52-1.25); GLUCOSE 330 mg/dL (75-110); POTASSIUM 4.4 mmol/L (3.6-5.0); SODIUM 139.3 mmol/L (137-145); TOTAL PROTEIN 6.5 g/dL (6.3-8.2)
[2017-05-16 23:22] LABS: BASOPHILS % (MANUAL) 0 % (0-2); EOSINOPHILS % (MANUAL) 0 % (0-6); LYMPHOCYTES % (MANUAL) 2 % (13-45); TOTAL CELLS COUNTED 100
[2017-05-16 23:23] LABS: ANISOCYTOSIS SLIGHT; OVALOCYTES SLIGHT; POIKILOCYTOSIS 1+; TEAR DROP CELLS 1+; TOXIC VACUOLATION PRESENT
[2017-05-16] MEDS ORDERED: PROMETHAZINE HCL INJ 25 MG/1 ML VIAL IM PRN (23:35)
[2017-05-16] MEDS ORDERED: PROMETHAZINE HCL INJ 25 MG/1 ML VIAL ONE (23:46)
[2017-05-16] MEDS ORDERED: PROMETHAZINE HCL INJ 25 MG/1 ML VIAL IM ONE (23:51)
[2017-05-16 23:58] LABS: PROTHROMBIN TIME 13.4 SEC (11.4-15.4)
[2017-05-17] MEDS: HYDROMORPHONE HCL INJ/PF 2 MG/ML AMPULE IV SCH ×2 (01:27→06:18)
--- NOTE | 2017-05-17 01:33 | RADIOLOGY REPORT (SQ) ---
EXAM DESCRIPTION: CT ABDOMEN AND PELVIS WITHOUT CONTRAST CLINICAL HISTORY: Diffuse abdominal pain. Reported previous contrast administration of 05/16. COMPARISON: None Available. TECHNIQUE: CT of the abdomen and pelvis without IV contrast. FINDINGS: Abdomen: The liver has normal size and density. Likely vicarious excretion of contrast in the gallbladder. Scattered splenic granulomas. The pancreas is unremarkable. No abnormalities of the adrenal glands. There is retained contrast within the kidneys and ureters bilaterally with mild bilateral hydroureter and hydronephrosis. Extensive perinephric fat stranding. Aortoiliac atherosclerosis. IVC is unremarkable. No free intraperitoneal air. Small hiatal hernia. Pelvis: Prostate is not enlarged. Nodular wall thickening of the urinary bladder. Small amount of free air in the urinary bladder. Excreted contrast in the urinary bladder. No dilated loops of large or small bowel. Mildly prominent wall of the sigmoid and descending colon is likely due to underdistention. No dilated loops of large or small bowel. Normal appendix. Pleural thickening and fibrosis of the left lung base. Degenerative spondylosis of the thoracic and lumbar spine. No destructive bone lesions identified. Degenerative spondylosis of the lumbar spine. DLP: 603.28 mGy-cm IMPRESSION: 1. Mild bilateral hydroureter and hydronephrosis. Hydronephrosis appears to be caused by nodular thickening of the urinary bladder wall near the UVJ bilaterally. Evaluation for stone is suboptimal due to retained excreted IV contrast. The ureters are not completely obstructed with contrast identified in the urinary bladder. 2. Extensive perinephric fat stranding may be related to hydronephrosis however infectious pyelonephritis could produce a similar appearance. 3. Fibrotic changes of the left lung base. CT of the chest recommended for definitive characterization. 4. Hiatal hernia. This exam was performed according to our departmental dose-optimization program, which includes automated exposure control, adjustment of the mA and/or kV according to patient size and/or use of iterative reconstruction technique.
[2017-05-17 02:34] LABS: APPEARANCE,URINE TURBID; BILIRUBIN,URINE NEGATIVE (NEGATIVE); GLUCOSE, URINE >=500 mg/dL (NEGATIVE); KETONES,URINE 20 mg/dL (NEGATIVE); LEUKOCYTE ESTERASE,URINE SMALL (NEGATIVE); NITRITE,URINE NEGATIVE (NEGATIVE); PROTEIN,URINE >=500 mg/dL (NEGATIVE); UROBILINOGEN,URINE NEGATIVE mg/dL (<2.0)
[2017-05-17] MEDS ORDERED: RINGERS SOLUTION,LACTATED 1,000 ML IV ONE (05:30)
[2017-05-17] MEDS ORDERED: RINGERS SOLUTION,LACTATED 1,000 ML IV PRN (05:32)
--- NOTE | 2017-05-17 05:34 | ER Document Report ---
Doctor's Note Notes: 05/17/17 05:33 I did review the CAT scan findings with the emergency medicine Dr. he was receiving the patient. I did going to see the patient. He does have blood coming from his Estrada. He does not have any suprapubic pain or pressure. I did order lactated Ringer's at 250 cc/h as well as Accu-Chek. I will also ask the nurse to irrigate the Estrada to make sure there is no clots that are clogging the urine flow.
--- NOTE | 2017-05-17 05:55 | EKG REPORT ---
SEVERITY:- ABNORMAL ECG - SINUS RHYTHM NONSPECIFIC T ABNORMALITIES, ANTERIOR LEADS : Confirmed by: Lisa Cristina 17-May-2017 05:54:41
[2017-05-17] MEDS ORDERED: ONDANSETRON HCL INJ/PF 4 MG/2 ML SDV IV PRN (07:51)
[2017-05-17] MEDS ORDERED: PIPERACILLIN/TAZOBACTAM 3.375 GM VIAL IV ONE (09:15)
--- NOTE | 2017-05-17 09:32 | ER Document Report ---
Doctor's Note Notes: 05/17/17 09:27 This is a 71-year-old man with a history of vocal cord cancer (status post resection in 2013), recent obstructive uropathy with stent placement (last Friday),IRDM, hypertension and a long history for dysphagia. The patient states he is had difficulty taking pills for the past year. He presented to the ER yesterday with nausea, flank pain, chills in the setting of self removal of the stents yesterday. CT performed showed an obstructive uropathy with possible pyelonephritis. The urine was positive for hematuria, pyuria and bacteriuria. The concern is clearly urosepsis in the setting of obstructive uropathy. [facility] is due within the hour. Currently, the patient is alert and oriented 3. His pressure has been 180/80 and in this range for most of his visit. He is complaining of bilateral flank pain, nausea. We will continue with IV antibiotics, IV fluids, IV anti- emetics and transfer. Patient has his own insulin pump. Will perform Accu- Chek.
[2017-05-17] MEDS ORDERED: METOCLOPRAMIDE HCL INJ/PF 10 MG/2 ML SDV IV ONE (09:37)
[2017-05-17] MEDS ORDERED: DIPHENHYDRAMINE HCL 50 MG/ML VIAL IV ONE (09:38)
[2017-05-17 10:02] VITALS: BP 171/81
== END 2017-05-17 10:31 ==
LOC: ER 21:41
DX: A41.9 Sepsis, unspecified organism (principal); T83.510A Infection and inflammatory reaction due to cystostomy catheter, initial encounter; R10.84 Generalized abdominal pain; I10 Essential (primary) hypertension; R13.10 Dysphagia, unspecified; Z87.891 Personal history of nicotine dependence; Z88.6 Allergy status to analgesic agent; Z85.118 Personal history of other malignant neoplasm of bronchus and lung; Z85.21 Personal history of malignant neoplasm of larynx
CPT/HCPCS: 93005; 96376; 99291; 96372; 96361; 96375; 96365; 36415; 87040; 87086; 82962; 85025; 85610; 80053; 81001; 82803; 83605; 71010; 74176; 93010; J1200; J2765; J1170; J2550; J2405; J7030; J7120; J2543 ×2

== ENCOUNTER 2018-02-24 12:35 | Emergency (ER) | payer OTHER, MEDICARE, BC ==
[2018-02-24 14:02] LABS: ABSOLUTE EOSINOPHILS # (AUTO) 0.2 10^3/uL (0.0-0.6); ABSOLUTE LYMPHOCYTES (AUTO) 1.1 10^3/uL (0.5-4.7); ABSOLUTE MONOCYTES (AUTO) 0.4 10^3/uL (0.1-1.4); ABSOLUTE NEUT (AUTO) 4.1 10^3/uL (1.7-8.2); BASOPHILS % (AUTO) 0.2 % (0-2); EOSINOPHILS % (AUTO) 3.4 % (0-6); HEMATOCRIT 33.9 % (37.9-51.0); HEMOGLOBIN 11.6 g/dL (13.5-17.0); LYMPHOCYTES % (AUTO) 18.6 % (13-45); MEAN CORPUSCULAR HEMOGLOBIN 30.6 pg (27.0-33.4); MEAN CORPUSCULAR HGB CONC 34.3 g/dL (32.0-36.0); MEAN CORPUSCULAR VOLUME 89 fl (80-97); MONOCYTES % (AUTO) 7.4 % (3-13); PLATELET COUNT 195 10^3/uL (150-450); RED BLOOD COUNT 3.79 10^6/uL (4.35-5.55); RED CELL DISTRIBUTION WIDTH 12.9 % (11.5-14.0); SEGMENTED NEUTROPHILS % (AUTO) 70.4 % (42-78); TOTAL CELLS COUNTED % (AUTO) 100 %; WHITE BLOOD COUNT 5.8 10^3/uL (4.0-10.5)
[2018-02-24 14:09] LABS: ALANINE AMINOTRANSFERASE 40 U/L (21-72); ALBUMIN 3.6 g/dL (3.5-5.0); ALKALINE PHOSPHATASE 95 U/L (38-126); ANION GAP 11 (5-19); ASPARTATE AMINO TRANSFERASE 37 U/L (17-59); BILIRUBIN,DIRECT 0.2 mg/dL (0.0-0.4); BILIRUBIN,TOTAL 0.3 mg/dL (0.2-1.3); BLOOD UREA NITROGEN 24 mg/dL (7-20); CALCIUM 9.1 mg/dL (8.4-10.2); CARBON DIOXIDE 30 mmol/L (22-30); CHLORIDE 99 mmol/L (98-107); GLUCOSE 211 mg/dL (75-110); POTASSIUM 3.3 mmol/L (3.6-5.0); TOTAL PROTEIN 6.5 g/dL (6.3-8.2)
[2018-02-24 14:26] LABS: INTERNATIONAL RATION (INR) 1.29; PROTHROMBIN TIME 16.7 SEC (11.4-15.4)
[2018-02-24 14:27] LABS: PARTIAL THROMBOPLASTIN TIME 30.8 SEC (23.5-35.8)
[2018-02-24 14:35] VITALS: BP 149/58
--- NOTE | 2018-02-24 14:56 | ER Document Report ---
ED Extremity Problem, Lower - General Chief Complaint: Leg Swelling Stated Complaint: LEFT LEG SWELLING Time Seen by Provider: 02/24/18 13:23 Notes: Patient presents with chief complaint of left lower extremity pain and swelling times 1 week. Patient reports history of DVT. Patient states he is taking a blood thinner but is unsure of the name of it. Patient denies any other symptoms. TRAVEL OUTSIDE OF THE [place] IN LAST 30 DAYS: No - Related Data Allergies/Adverse Reactions: divalproex sodium [From Depakote] Allergy (Verified 02/24/18 12:36) codeine Adverse Reaction (Verified 02/24/18 12:36) Past Medical History - General Information source: Patient - Social History Smoking Status: Former Smoker Frequency of alcohol use: None Drug Abuse: None Lives with: Alone Family History: Hyperlipidemia, Hypertension Patient has suicidal ideation: No Patient has homicidal ideation: No - Past Medical History Cardiac Medical History: Reports: Hx Hypercholesterolemia, Hx Hypertension Pulmonary Medical History: Reports: Hx COPD Endocrine Medical History: Reports: Hx Diabetes Mellitus Type 1, Hx Diabetes Mellitus Type 2 Renal/ Medical History: Denies: Hx Peritoneal Dialysis Malignancy Medical History: Reports Hx Lung Cancer GI Medical History: Reports: Hx Gastroesophageal Reflux Disease Psychiatric Medical History: Reports: Hx Depression - years ago Past Surgical History: Reports: Other - left thoracotomy, left lower lobectomy , - Immunizations Hx Pneumococcal Vaccination: 06/02/16 Review of Systems - Review of Systems Musculoskeletal: See HPI Physical Exam - Vital signs Vitals: Temp Pulse Resp BP Pulse Ox 97.6 F 79 16 154/56 H 93 02/24/18 12:42 02/24/18 12:42 02/24/18 12:42 02/24/18 12:42 02/24/18 12:42 - Notes Notes: PHYSICAL EXAMINATION: GENERAL: Well-appearing, well-nourished and in no acute distress. HEAD: Atraumatic, normocephalic. EYES: Pupils equal round and reactive to light, extraocular movements intact, sclera anicteric, conjunctiva are normal. ENT: Nares patent, oropharynx clear without exudates. Moist mucous membranes. NECK: Normal range of motion, supple without lymphadenopathy LUNGS: Breath sounds clear to auscultation bilaterally and equal. No wheezes rales or rhonchi. HEART: Regular rate and rhythm without murmurs ABDOMEN: Soft, nontender, nondistended abdomen. No guarding, no rebound. No masses appreciated. Musculoskeletal: Normal range of motion, no pitting. No cyanosis. Mild swelling noted to left lower extremity, normal motor and sensation, palpable pulses. NEUROLOGICAL: Cranial nerves grossly intact. Normal speech, normal gait. Normal sensory, motor exams PSYCH: Normal mood, normal affect. SKIN: Warm, Dry, normal turgor, no rashes or lesions noted. Course - Re-evaluation Re-evalutation: Patient's venous Doppler is negative for any acute findings to include DVT or SVT. Patient does have mild hypokalemia, patient declined p.o. potassium as he states that he has some at home he would rather take it when he gets home after he eats. - Vital Signs Vital signs: Temp Pulse Resp BP Pulse Ox 97.6 F 79 16 149/58 H 93 02/24/18 12:42 02/24/18 12:42 02/24/18 15:00 02/24/18 14:01 02/24/18 14:01 - Laboratory Result Diagrams: 02/24/18 13:50 02/24/18 13:50 Laboratory results interpreted by me: 02/24/18 02/24/18 02/24/18 13:50 13:50 13:50 RBC 3.79 L Hgb 11.6 L Hct 33.9 L PT 16.7 H Potassium 3.3 L BUN 24 H Creatinine 1.28 H Est GFR (Non-Af Amer) 55 L Glucose 211 H Discharge - Discharge Clinical Impression: Left leg swelling Condition: Stable Disposition: HOME, SELF-CARE Additional Instructions: Your ultrasound today was negative for any DVT. If you continue to have pain and/or swelling to this area you may want to have another venous Doppler ultrasound done in 1-2 weeks. Your primary care provider can order this. Please return to the emergency department if you have worsening of your symptoms , chest pain, shortness of breath or any other symptoms that are concerning to you. Please continue to take all of your medications as prescribed by your primary care provider.
--- NOTE | 2018-02-24 19:51 | XCELERA REPORT ---
[address] [place] [facility] [id number] Lower Extremity Venous Evaluation Procedure: Color flow and duplex imaging of the veins of the left lower extremity as well as the right Common Femoral vein. Right Sided Venous Evaluation The right common femoral vein is fully compressible. Spontaneous and phasic flow is present in the right common femoral vein. Left Sided Venous Evaluation Normal vessel filling wall to wall, compression and augmentation as well as Colour flow down to the infrageniculate veins. Interpretation Summary No duplex evidence of DVT or obstruction in the left lower extremity nor in the right Common Femoral vein. Name: LITA LANG Age: 72 yrs Gender: Male : 1945 Patient Status: Emergency Patient Location: ER Study Date: 02/24/2018 02:34 PM Reason For Study: LLE swelling/pain Ordering Physician: IHSAN GARCIA Performed By: Gayle Jones : IHSAN GARCIA > Artie Wetzel
== END 2018-02-24 15:40 | disposition home or self-care (01) ==
LOC: ER 12:35
DX: M79.89 Other specified soft tissue disorders (principal); M79.605 Pain in left leg; E87.6 Hypokalemia; I10 Essential (primary) hypertension; J44.9 Chronic obstructive pulmonary disease, unspecified; E11.9 Type 2 diabetes mellitus without complications; Z87.891 Personal history of nicotine dependence; Z79.01 Long term (current) use of anticoagulants; Z85.118 Personal history of other malignant neoplasm of bronchus and lung
CPT/HCPCS: 36415; 80053; 85025; 85610; 85730; 93971; 99283

== ENCOUNTER 2018-05-05 11:58 | Inpatient (IN) | payer OTHER, MEDICARE, BC ==
--- NOTE | 2018-05-05 12:40 | ER Document Report ---
ED Medical Screen (RME) - General Chief Complaint: Productive Cough Stated Complaint: COUGH Time Seen by Provider: 05/05/18 12:36 Mode of Arrival: Ambulatory Information source: Patient, Relative, [facility] Records Notes: 72-year-old male with extensive cancer history including lung cancer (in remission), throat cancer(in remission), bladder cancer currently undergoing therapy presents with hemoptysis. Patient states that he has had a productive constant cough with yellow-green sputum for approximately 3 days but yesterday began coughing up blood. He denies any chest pain, black or bloody stool. He is on rivaroxaban. He does believe he has had a prior pulmonary embolism but is not sure. I have greeted and performed a rapid initial assessment of this patient. A comprehensive ED assessment and evaluation of the patient, analysis of test results and completion of medical decision making process we will be contacted by additional ED providers. PHYSICAL EXAMINATION: Vital signs reviewed-afebrile, no hypoxia GENERAL: Well-appearing, well-nourished and in no acute distress. LUNGS: No respiratory distress Musculoskeletal: Normal range of motion NEUROLOGICAL: Normal speech, normal gait. PSYCH: Normal mood, normal affect. SKIN: Warm, Dry, normal turgor, no rashes or lesions noted.. TRAVEL OUTSIDE OF THE [place] IN LAST 30 DAYS: No - HPI Onset: Yesterday Onset/Duration: Gradual Associated Symptoms: Cough (productive). denies: Body/muscle aches, Fever, Shortness of breath, Sore throat Exacerbated by: Denies Relieved by: Denies Similar symptoms previously: No Recently seen / treated by doctor: Yes - Related Data Smoking: Non-smoker Frequency of alcohol use: None Drug Abuse: None Allergies/Adverse Reactions: divalproex sodium [From Depakote] Allergy (Verified 05/05/18 12:02) codeine Adverse Reaction (Verified 05/05/18 12:02) Past Medical History - Past Medical History Cardiac Medical History: Reports: Hx Hypercholesterolemia, Hx Hypertension Pulmonary Medical History: Reports: Hx COPD Endocrine Medical History: Reports: Hx Diabetes Mellitus Type 1, Hx Diabetes Mellitus Type 2 Renal/ Medical History: Denies: Hx Peritoneal Dialysis Malignancy Medical History: Reports Hx Lung Cancer GI Medical History: Reports: Hx Gastroesophageal Reflux Disease Psychiatric Medical History: Reports: Hx Depression - years ago Past Surgical History: Reports: Other - left thoracotomy, left lower lobectomy , Physical Exam - Vital signs Vitals: Temp Pulse Resp BP Pulse Ox 98.7 F 98 24 H 163/63 H 97 05/05/18 12:09 05/05/18 12:09 05/05/18 12:09 05/05/18 12:09 05/05/18 12:09 Course - Vital Signs Vital signs: Temp Pulse Resp BP Pulse Ox 98.7 F 98 24 H 163/63 H 97 05/05/18 12:09 05/05/18 12:09 05/05/18 12:09 05/05/18 12:09 05/05/18 12:09
--- NOTE | 2018-05-05 13:14 | RADIOLOGY REPORT (SQ) ---
EXAM DESCRIPTION: CHEST 2 VIEWS COMPLETED DATE/TIME: 05/05/2018 12:51 pm REASON FOR STUDY: coughing blood History urothelial neoplasm COMPARISON: CT angio chest 12/17/2016 Chest films 12/17/2016, 12/24/2016, 05/16/2017 EXAM PARAMETERS: NUMBER OF VIEWS: two views TECHNIQUE: Digital Frontal and Lateral radiographic views of the chest acquired. RADIATION DOSE: NA LIMITATIONS: none FINDINGS: LUNGS AND PLEURA: Right lung is well inflated and free of focal infiltrates. No right-kal ed pleural effusion or pneumothorax. On the left side, chronic blunting of the lateral costophrenic sulcus is present with chronic scarrin g in the left lung apex. There is an acute infiltrate in the left lower lobe, pulmonary hemorrhage versus pneumonia. No left pleural effusion or pneumothorax. MEDIASTINUM AND HILAR STRUCTURES: Old left upper lobectomy. Shift of mediastinal structures into the left chest HEART AND VASCULAR STRUCTURES: Heart normal size. No evidence for failure. BONES: No acute findings. HARDWARE: None in the chest. OTHER: No other significant finding. IMPRESSION: Left lower lobe airspace disease pulmonary hemorrhage versus pneumonia. Old volume loss and scarring in the left hemithorax post upper lobectomy TECHNICAL DOCUMENTATION: JOB ID: [id number] [employer]- All Rights Reserved Reading location - IP/workstation name: [email or web address]
[2018-05-05 13:40] LABS: ABSOLUTE EOSINOPHILS # (AUTO) 0.1 10^3/uL (0.0-0.6); ABSOLUTE LYMPHOCYTES (AUTO) 0.8 10^3/uL (0.5-4.7); ABSOLUTE MONOCYTES (AUTO) 0.5 10^3/uL (0.1-1.4); ABSOLUTE NEUT (AUTO) 7.1 10^3/uL (1.7-8.2); BASOPHILS % (AUTO) 0.3 % (0-2); EOSINOPHILS % (AUTO) 0.9 % (0-6); HEMOGLOBIN 12.1 g/dL (13.5-17.0); LYMPHOCYTES % (AUTO) 9.2 % (13-45); MEAN CORPUSCULAR HEMOGLOBIN 29.8 pg (27.0-33.4); MEAN CORPUSCULAR HGB CONC 33.6 g/dL (32.0-36.0); MEAN CORPUSCULAR VOLUME 89 fl (80-97); MONOCYTES % (AUTO) 6.2 % (3-13); PLATELET COUNT 216 10^3/uL (150-450); RED BLOOD COUNT 4.05 10^6/uL (4.35-5.55); SEGMENTED NEUTROPHILS % (AUTO) 83.4 % (42-78); TOTAL CELLS COUNTED % (AUTO) 100 %; WHITE BLOOD COUNT 8.5 10^3/uL (4.0-10.5)
[2018-05-05 13:45] LABS: INTERNATIONAL RATION (INR) 1.24; PROTHROMBIN TIME 16.2 SEC (11.4-15.4)
[2018-05-05 13:46] LABS: PARTIAL THROMBOPLASTIN TIME 41.6 SEC (23.5-35.8)
[2018-05-05 14:03] LABS: ALANINE AMINOTRANSFERASE 24 U/L (21-72); ALBUMIN 3.8 g/dL (3.5-5.0); ALKALINE PHOSPHATASE 101 U/L (38-126); ANION GAP 10 (5-19); ASPARTATE AMINO TRANSFERASE 26 U/L (17-59); BILIRUBIN,DIRECT 0.3 mg/dL (0.0-0.4); BILIRUBIN,TOTAL 0.5 mg/dL (0.2-1.3); BLOOD UREA NITROGEN 25 mg/dL (7-20); CALCIUM 9.3 mg/dL (8.4-10.2); CARBON DIOXIDE 34 mmol/L (22-30); CHLORIDE 95 mmol/L (98-107); GLUCOSE 364 mg/dL (75-110); POTASSIUM 3.6 mmol/L (3.6-5.0); SODIUM 138.9 mmol/L (137-145)
--- NOTE | 2018-05-05 15:55 | RADIOLOGY REPORT (SQ) ---
EXAM DESCRIPTION: CTA CHEST COMPLETED DATE/TIME: 05/05/2018 3:35 pm REASON FOR STUDY: coughing up blood h/o cancer COMPARISON: Radiographs from earlier. TECHNIQUE: CT scan of the chest performed using helical scanning technique with dynamic intravenous contrast injection. Images reviewed with lung, soft tissue and bone windows. Reconstructed coronal and sagittal MPR images reviewed. Additional 3 dimensional post-processing performed to develop Maximal Intensity Projection images ([place] P). All images stored on PACS. All CT scanners at this facility use dose modulation, iterative reconstruction, and/or weight based d osing when appropriate to reduce radiation dose to as low as reasonably achievable (ALARA). [facility]: Dose Right [facility]: CareDose [facility]: Dose Right [facility]: Teradose 4D [facility]: [employer] CONTRAST TYPE AND DOSE: contrast/concentration: Isovue 350.00 mg/ml; Total Contrast Delivered: 83.0 ml; Total Saline Delivered: 90.0 ml Contrast bolus adequate for pulmonary arteries and aorta. RENAL FUNCTION: GFR > 60. RADIATION DOSE: CT Rad equipment meets quality standard of care and radiation dose reduction techniq ues were employed. CTDIvol: 26.5 - 29.8 mGy. DLP: 1052 mGy-cm. . LIMITATIONS: None. FINDINGS: LUNGS AND PLEURA: Partial left pneumonectomy with associated volume loss. Chronic areas o f apical scarring. Mild emphysema. Ground-glass infiltrates throughout the left lung base. Trace l eft pleural reaction. Right lung looks generally clear. AORTA AND GREAT VESSELS: No aneurysm. Contrast bolus not optimized for the aorta. HEART: No pericardial effusion. No significant coronary artery calcifications. PULMONARY ARTERIES: No emboli visualized in the main pulmonary arteries or the segmental branches. HILAR AND MEDIASTINAL STRUCTURES: No identified masses or abnormal nodes. HARDWARE: None in the chest. UPPER ABDOMEN: No significant findings. Limited exam. THYROID AND OTHER SOFT TISSUES: No masses. No adenopathy. BONES: No acute or significant finding. 3D MIPS: Confirm above findings. OTHER: No other significant finding. IMPRESSION: 1. No evidence of pulmonary embolus or aortic disease. 2. Chronic left lung postoperat aris volume loss and scar. Superimposed ground-glass infiltrate noted on today's study. Differential includes pulmonary edema, pulmonary hemorrhage and atypical causes of pneumonia (viral, eosinophilic ) along with hypersensitivity pneumonitis. COMMENT: Quality ID # [id number]: Final reports with documentation of one or more dose reduction techniques (e.g., Automated exposure control, adjustment of the mA and/or kV according to patient size, use of iterative reconstruction technique) TECHNICAL DOCUMENTATION: JOB ID: [id number] [employer]- All Rights Reserved Reading location - IP/workstation name: [email or web address]
--- NOTE | 2018-05-05 17:07 | ER Document Report ---
ED General - General Chief Complaint: Productive Cough Stated Complaint: COUGH Time Seen by Provider: 05/05/18 12:36 Mode of Arrival: Ambulatory Notes: Patient is a 72-year-old male who presents with chief complaint of coughing up blood. He reports that over the last few days he has had nausea and body aches with fatigue. Last night around 8:30 PM he started coughing up what he describes as a small amount of bright red blood. He states that this has happened before when he has had pneumonias. Patient recently finished chemotherapy approximately 2 weeks ago for bladder cancer. Patient also has a history of lung cancer with a left-sided lobectomy. Patient denies any fever, vomiting or diarrhea. TRAVEL OUTSIDE OF THE [place] IN LAST 30 DAYS: No - Related Data Allergies/Adverse Reactions: divalproex sodium [From Depakote] Allergy (Verified 05/05/18 12:02) codeine Adverse Reaction (Verified 05/05/18 12:02) Past Medical History - General Information source: Patient, Relative, [facility] Records - Social History Smoking Status: Former Smoker Frequency of alcohol use: None Drug Abuse: None Family History: Hyperlipidemia, Hypertension Patient has suicidal ideation: No Patient has homicidal ideation: No - Past Medical History Cardiac Medical History: Reports: Hx Hypercholesterolemia, Hx Hypertension Pulmonary Medical History: Reports: Hx COPD Endocrine Medical History: Reports: Hx Diabetes Mellitus Type 1, Hx Diabetes Mellitus Type 2 Renal/ Medical History: Denies: Hx Peritoneal Dialysis Malignancy Medical History: Reports Hx Lung Cancer GI Medical History: Reports: Hx Gastroesophageal Reflux Disease Psychiatric Medical History: Reports: Hx Depression - years ago Past Surgical History: Reports: Other - left thoracotomy, left lower lobectomy , - Immunizations Hx Pneumococcal Vaccination: 06/02/16 Review of Systems - Review of Systems Constitutional: Malaise Respiratory: Hemoptysis Gastrointestinal: Nausea -: Yes All other systems reviewed and negative Physical Exam - Vital signs Vitals: Temp Pulse Resp BP Pulse Ox 98.7 F 98 24 H 163/63 H 97 05/05/18 12:09 05/05/18 12:09 05/05/18 12:09 05/05/18 12:09 05/05/18 12:09 - Notes Notes: PHYSICAL EXAMINATION: GENERAL: Well-appearing, well-nourished and in no acute distress. HEAD: Atraumatic, normocephalic. EYES: Pupils equal round and reactive to light, extraocular movements intact, sclera anicteric, conjunctiva are normal. ENT: Nares patent, oropharynx clear without exudates. Moist mucous membranes. NECK: Normal range of motion, supple without lymphadenopathy LUNGS: No wheezes rales or rhonchi noted on auscultation, left lower lung sounds absent, consistent with lobectomy. HEART: Regular rate and rhythm without murmurs ABDOMEN: Soft, nontender, nondistended abdomen. No guarding, no rebound. No masses appreciated. Musculoskeletal: Normal range of motion, no pitting or edema. No cyanosis. NEUROLOGICAL: Cranial nerves grossly intact. Normal speech, normal gait. Normal sensory, motor exams PSYCH: Normal mood, normal affect. SKIN: Warm, Dry, normal turgor, no rashes or lesions noted. Course - Re-evaluation Re-evalutation: Awake, alert and oriented gentleman in no acute distress. Initial workup was initiated by provider in triage. Patient denies any acute complaints at this time. Patient's physical examination is unremarkable. Patient has had no episodes of hemoptysis while in the department. Patient's vital signs are stable. CBC and CMP are unremarkable. CTA of the chest with groundglass opacities consistent with pneumonia versus pulmonary hemorrhage versus pneumonitis versus pulmonary edema. 05/05/18 17:09 Contacted hospitalist, Dr. Martha cooper who agrees to admit patient to medical floor. - Vital Signs Vital signs: Temp Pulse Resp BP Pulse Ox 98.7 F 98 24 H 163/63 H 97 05/05/18 12:09 05/05/18 12:09 05/05/18 12:09 05/05/18 12:09 05/05/18 12:09 - Laboratory Result Diagrams: 05/05/18 13:15 05/05/18 13:15 Laboratory results interpreted by me: 05/05/18 05/05/18 05/05/18 13:15 13:15 13:15 RBC 4.05 L Hgb 12.1 L Hct 36.0 L Seg Neutrophils % 83.4 H Lymphocytes % 9.2 L PT 16.2 H APTT 41.6 H Chloride 95 L Carbon Dioxide 34 H BUN 25 H Glucose 364 H Discharge - Discharge Clinical Impression: Hemoptysis, Ground glass opacity present on imaging of lung Condition: Stable Disposition: ADMITTED INPATIENT Admitting Provider: Hospitalist Unit Admitted: Medical Floor
[2018-05-05 17:52] LABS: APPEARANCE,URINE CLEAR; BILIRUBIN,URINE NEGATIVE (NEGATIVE); COLOR,URINE COLORLESS; GLUCOSE, URINE 50 mg/dL (NEGATIVE); KETONES,URINE NEGATIVE (NEGATIVE); LEUKOCYTE ESTERASE,URINE NEGATIVE (NEGATIVE); NITRITE,URINE NEGATIVE (NEGATIVE); PROTEIN,URINE NEGATIVE (NEGATIVE); URINE SPECIFIC GRAVITY 1.033; UROBILINOGEN,URINE NEGATIVE mg/dL (<2.0)
[2018-05-05] MEDS ORDERED: IPRATROPIUM/ALBUTEROL 0.5-2.5 MG/3 ML AMPUL NEB PRN (19:25)
[2018-05-05] MEDS ORDERED: ACETAMINOPHEN 325 MG TABLET PO PRN (19:25)
[2018-05-05] MEDS ORDERED: INSULIN LISPRO 100 UNIT/ML 3 ML VIAL SUBCUT PRN (19:52)
[2018-05-05] MEDS ORDERED: DEXTROSE 40% GEL 15 GM TUBE PO PRN ×2 (19:52)
[2018-05-05] MEDS ORDERED: GLUCAGON,HUMAN RECOMB 1 MG INJ IM PRN (19:52)
[2018-05-05] MEDS ORDERED: DEXTROSE 50%-WATER 25 GM/50 ML DISP.SYRIN IV PRN ×2 (19:52)
[2018-05-05] MEDS ORDERED: INSULIN REG, HUMAN 100 UNIT/ML 3 ML VIAL (PYX) SUBCUT SCH (20:00)
--- NOTE | 2018-05-05 20:17 | PDOC H&P ---
History of Present Illness Admission Date/PCP: 05/05/18 17:17 Patient complains of: Hemoptysis History of Present Illness: LITA LANG is a 72 year old male with an extremely complex medical history. He recently finished treatment for bladder cancer recurrence. He has a history of COPD. He began to have a dry cough several days ago. Yesterday he noticed hemoptysis. Initial episode showed more blood than mucus. Subsequently the amount of blood was decreasing relative to the amount of mucus. He has no focal discomfort in his throat or chest. 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 He denies fever or chills. He has experienced some nausea. He has felt some shortness of breath over his baseline. He is on oxygen at home. His reports that he does have significant exertional dyspnea but this has been chronic and progressive. CT scan of the chest revealed groundglass infiltrates. There are potential etiologies included pneumonia, hemorrhagic pneumonitis or pulmonary fibrosis. The patient was admitted to the hospitalist service. Please see below for treatment plan. Past Medical History Cardiac Medical History: Reports: Hyperlipidema, Hypertension Pulmonary Medical History: Reports: Chronic Obstructive Pulmonary Disease (COPD) , Pneumonia EENT Medical History: Reports: Throat Neurological Medical History: Denies: Hemorrhagic CVA, Ischemic CVA, Multiple Sclerosis Endocrine Medical History: Reports: Diabetes Mellitus Type 1 Malignancy Medical History: Reports: Lung Cancer, Other - Vocal cord cancer, bladder cancer GI Medical History: Reports: Gastroesophageal Reflux Disease Musculoskeltal Medical History: Reports: Other - Bone cyst right humerus Skin Medical History: Reports: None Psychiatric Medical History: Reports: Depression - years ago Hematology: Denies: Anemia, Hemophilia, Sickle Cell Disease Infectious Medical History: Denies: None Past Surgical History Past Surgical History: Reports: Orthopedic Surgery - Right humerus bone cyst, Other - left lower lobectomy 06/2016, cystoscopy, focal cords Social History Information Source: Patient Lives with: Family Smoking Status: Former Smoker Frequency of Alcohol Use: None Hx Recreational Drug Use: No Drugs: None Hx Prescription Drug Abuse: No - Advance Directive Resuscitation Status: Do Not Resuscitate Surrogate healthcare decision maker:: Patient and his are interested in filing healthcare proxy's. Family History Family History: Hyperlipidemia, Hypertension, Malignancy Parental Family History Reviewed: Yes - Alcohol dependence, esophageal cancer, asthma Children Family History Reviewed: Yes - Brother of esophageal cancer, brother with bladder cancer Sibling(s) Family History Reviewed.: Yes Medication/Allergy Allergies/Adverse Reactions: divalproex sodium [From Depakote] Allergy (Verified 05/05/18 12:02) codeine Adverse Reaction (Verified 05/05/18 12:02) Review of Systems Constitutional: PRESENT: anorexia - Slightly decreased appetite, chills, fatigue , headache(s) Eyes: PRESENT: visual disturbances - Wears glasses Ears: PRESENT: hearing changes - Wears hearing aids Nose, Mouth, and Throat: PRESENT: headache(s). ABSENT: mouth pain, sore throat Cardiovascular: PRESENT: as per HPI, dyspnea on exertion Respiratory: PRESENT: cough, dyspnea, hemoptysis Gastrointestinal: ABSENT: abdominal pain, bloating, dysphagia, hematemesis Genitourinary: ABSENT: dysuria, hematuria Integumentary: ABSENT: diaphoresis, rash, wounds Neurological: ABSENT: abnormal speech, frequent falls, memory loss, vertigo Psychiatric: PRESENT: depression Endocrine: ABSENT: flushing, heat intolerance Hematologic/Lymphatic: ABSENT: easy bleeding, easy bruising Allergic/Immunologic: ABSENT: seasonal rhinorrhea Physical Exam Vital Signs: Temp Pulse Resp BP Pulse Ox 98.4 F 98 22 H 113/88 H 98 05/05/18 18:47 05/05/18 12:09 05/05/18 19:01 05/05/18 19:01 05/05/18 19:01 General appearance: PRESENT: hard of hearing, mild distress, well-developed Head exam: PRESENT: atraumatic, normocephalic Eye exam: PRESENT: conjunctiva pink, EOMI. ABSENT: scleral icterus Ear exam: PRESENT: normal external ear exam Mouth exam: PRESENT: moist, tongue midline Neck exam: PRESENT: full ROM. ABSENT: carotid bruit, JVD, lymphadenopathy Respiratory exam: PRESENT: rales - Rales at left base. ABSENT: chest wall tenderness, rhonchi Cardiovascular exam: PRESENT: RRR, +S1, +S2, systolic murmur - 2/6 GI/Abdominal exam: PRESENT: normal bowel sounds, soft. ABSENT: distended, guarding, tenderness Extremities exam: PRESENT: +1 edema - Left leg. Right leg without edema. ABSENT: calf tenderness Neurological exam: PRESENT: alert, awake, oriented to person, oriented to place , oriented to time, oriented to situation Psychiatric exam: PRESENT: appropriate affect, normal mood. ABSENT: agitated, anxious Focused psych exam: ABSENT: restlessness Skin exam: PRESENT: dry, rash, warm Results Laboratory Results: 05/05/18 17:26 Urine Color COLORLESS Urine Appearance CLEAR Urine pH 5.0 Ur Specific [place] 1.033 Urine Protein NEGATIVE Urine Glucose (UA) 50 H Urine Ketones NEGATIVE Urine Blood NEGATIVE Urine Nitrite NEGATIVE Ur Leukocyte Esterase NEGATIVE Urine WBC (Auto) 0 Urine RBC (Auto) 0 Impressions: Chest X-Ray 05/05/18 12:36 IMPRESSION: Left lower lobe airspace disease pulmonary hemorrhage versus pneumonia. Old volume loss and scarring in the left hemithorax post upper lobectomy Chest/Abdomen CTA 05/05/18 13:07 IMPRESSION: 1. No evidence of pulmonary embolus or aortic disease. 2. Chronic left lung postoperative volume loss and scar. Superimposed ground- glass infiltrate noted on today's study. Differential includes pulmonary edema , pulmonary hemorrhage and atypical causes of pneumonia (viral, eosinophilic) along with hypersensitivity pneumonitis. Assessment & Plan - Diagnosis (1) Ground glass opacity present on imaging of lung Is this a current diagnosis for this admission?: Yes Plan: Patient has a history of lung cancer with left lower lobe resection. He has been having hemoptysis over the last 2 days. He has underlying chronic obstructive pulmonary disease with progressive exertional dyspnea per his . He is on oxygen at home on an as-needed basis. CT angiogram revealed groundglass opacity on the left. Possible etiologies include pneumonia versus hemorrhage versus fibrosis. He is afebrile and has normal white blood cell count. With multiple malignancies he could be immunocompromised. I will admitted to the hospital. I will not give him antibiotic therapy immediately. I will have pulmonology see the patient in the morning as well. (3) COPD (chronic obstructive pulmonary disease) Qualifiers: COPD type: unspecified COPD Qualified Code(s): J44.9 - Chronic obstructive pulmonary disease, unspecified Is this a current diagnosis for this admission?: Yes Plan: Patient has a history of chronic obstructive pulmonary disease. He is on Symbicort inhaler therapy. As noted above he does have oxygen at home. He does not always need it. We will continue his Symbicort. I have ordered nebulizer therapies as needed. Respiratory therapy will monitor his oxygen and we will wean oxygen if tolerated. (4) Diabetes Qualifiers: Diabetes mellitus type: type 1 Diabetes mellitus complication detail: with unspecified neuropathy Is this a current diagnosis for this admission?: Yes Plan: The patient is going to continue with his insulin pump at his current settings. I have ordered Humalog sliding scale for additional coverage if needed. We will check his fingerstick glucoses at mealtime and bedtime. He will also be on a cardiac consistent carbohydrate diet. - Time Time Spent: Greater than 70 Minutes Medications reviewed and adjusted accordingly: Yes Anticipated discharge: Home - Inpatient Certification Based on my medical assessment, after consideration of the patient's comorbidities, presenting symptoms, or acuity I expect that the services needed warrant INPATIENT care.: Yes I certify that my determination is in accordance with my understanding of Medicare's requirements for reasonable and necessary INPATIENT services [42 CFR 412.3e].: Yes Medical Necessity: Need Close Monitoring Due to Risk of Patient Decompensation, Need for Nebulizer Therapy and Monitoring of Response
[2018-05-05] MEDS ORDERED: [UNRECOGNIZED DRUG - OTHER] PO SCH (21:00)
[2018-05-05] MEDS: SERTRALINE HCL 50 MG TABLET PO SCH (22:06)
[2018-05-05] MEDS: GABAPENTIN 300 MG CAPSULE PO SCH (22:07)
[2018-05-05] MEDS: GUAIFENESIN 600 MG TABLET.SA PO SCH (22:07)
[2018-05-05] MEDS: DILTIAZEM HCL 120 MG CAP.SR.24H PO SCH (22:07)
[2018-05-05] MEDS: TRAZODONE HCL 50 MG TABLET PO SCH (22:08)
[2018-05-05] MEDS: BUDESONIDE/FORMOTEROL 160-4.5 MCG 60 PUFF/6 GM MDI IH SCH (22:09)
[2018-05-06 04:47] LABS: ABSOLUTE EOSINOPHILS # (AUTO) 0.1 10^3/uL (0.0-0.6); ABSOLUTE LYMPHOCYTES (AUTO) 1.3 10^3/uL (0.5-4.7); ABSOLUTE MONOCYTES (AUTO) 0.7 10^3/uL (0.1-1.4); ABSOLUTE NEUT (AUTO) 5.4 10^3/uL (1.7-8.2); BASOPHILS % (AUTO) 0.6 % (0-2); EOSINOPHILS % (AUTO) 0.8 % (0-6); HEMOGLOBIN 11.2 g/dL (13.5-17.0); LYMPHOCYTES % (AUTO) 17.2 % (13-45); MEAN CORPUSCULAR HEMOGLOBIN 29.9 pg (27.0-33.4); MEAN CORPUSCULAR HGB CONC 33.9 g/dL (32.0-36.0); MEAN CORPUSCULAR VOLUME 88 fl (80-97); MONOCYTES % (AUTO) 8.8 % (3-13); PLATELET COUNT 196 10^3/uL (150-450); RED BLOOD COUNT 3.75 10^6/uL (4.35-5.55); RED CELL DISTRIBUTION WIDTH 13.9 % (11.5-14.0); SEGMENTED NEUTROPHILS % (AUTO) 72.6 % (42-78); TOTAL CELLS COUNTED % (AUTO) 100 %; WHITE BLOOD COUNT 7.5 10^3/uL (4.0-10.5)
[2018-05-06 05:09] LABS: ANION GAP 11 (5-19); BLOOD UREA NITROGEN 22 mg/dL (7-20); CALCIUM 8.9 mg/dL (8.4-10.2); CARBON DIOXIDE 31 mmol/L (22-30); CHLORIDE 99 mmol/L (98-107); GLUCOSE 198 mg/dL (75-110); POTASSIUM 3.2 mmol/L (3.6-5.0); SODIUM 141.2 mmol/L (137-145)
[2018-05-06] MEDS: LANSOPRAZOLE 30 MG TAB.RAP.DR PO SCH (05:25)
[2018-05-06] MEDS: POTASSIUM CHLORIDE 10 MEQ CAPSULE.ER PO SCH (09:18)
[2018-05-06] MEDS: BUPROPION HCL 100 MG TABLET PO SCH (09:19)
[2018-05-06] MEDS: GABAPENTIN 300 MG CAPSULE PO SCH ×2 (09:19→22:54)
[2018-05-06] MEDS: CHOLECALCIFEROL (D3) 1,000 UNIT TABLET PO SCH (09:19)
[2018-05-06] MEDS: GUAIFENESIN 600 MG TABLET.SA PO SCH ×2 (09:19→22:53)
[2018-05-06] MEDS: FUROSEMIDE 40 MG TABLET PO SCH (09:20)
[2018-05-06] MEDS: HYDROCHLOROTHIAZIDE 25 MG TABLET PO SCH (09:20)
[2018-05-06] MEDS: BUDESONIDE/FORMOTEROL 160-4.5 MCG 60 PUFF/6 GM MDI IH SCH ×2 (09:20→22:56)
[2018-05-06] MEDS: DILTIAZEM HCL 120 MG CAP.SR.24H PO SCH ×2 (09:23→22:53)
[2018-05-06] MEDS ORDERED: POTASSI CL 20 MEQ/50 ML RIDER 20 MEQ/50 ML RTUPB IV ONE (09:30)
[2018-05-06] MEDS ORDERED: ALBUTEROL SULFATE 0.083% NEB 2.5 MG/3 ML AMPUL NEB ONE (10:03)
--- NOTE | 2018-05-06 12:57 | PDOC PROGRESS REPORT ---
Subjective Progress Note for:: 05/06/18 Subjective:: 05/06/2018-the patient is resting comfortably. He feels better. He reports minimal hemoptysis. Reason For Visit: PNEUMONIA,HX LUNG CA Physical Exam Vital Signs: Temp Pulse Resp BP Pulse Ox 98.4 F 69 18 131/57 H 93 05/06/18 11:32 05/06/18 11:32 05/06/18 11:32 05/06/18 11:32 05/06/18 12:00 Pulse Oximeter Continuous Start: 05/05/18 19: 26 Freq: RTQ4 Status: Active Document 05/06/18 12:00 [facility] (Rec: 05/06/18 12:42 [facility] [id number]) Pulse Oximetry Assessment Oxygen Saturation (92-100) 93 Oxygen Flow Rate (L/min) 1 Oxygen Delivery Method Nasal Cannula Equipment Usage Equipment Standby Continuous SpO2 Machine # - Intake & Output 05/05/18 05/06/18 05/07/18 06:59 06:59 06:59 Weight 94.1 kg General appearance: PRESENT: no acute distress, cooperative Eye exam: PRESENT: conjunctiva pink. ABSENT: scleral icterus Mouth exam: PRESENT: moist, tongue midline Respiratory exam: PRESENT: rales - Faint at left base, symmetrical, unlabored. ABSENT: prolonged expiratory phas, rhonchi, wheezes Cardiovascular exam: PRESENT: RRR, +S1, +S2, systolic murmur - 2/6 GI/Abdominal exam: PRESENT: normal bowel sounds, soft. ABSENT: distended, guarding, tenderness Musculoskeletal exam: PRESENT: ambulatory Neurological exam: PRESENT: alert, awake, oriented to person, oriented to place , oriented to time, oriented to situation, CN II-XII grossly intact Psychiatric exam: PRESENT: appropriate affect, normal mood. ABSENT: agitated, anxious Results Laboratory Results: 05/06/18 04:38 05/06/18 04:38 05/05/18 05/06/18 05/06/18 17:26 04:38 04:38 WBC 7.5 RBC 3.75 L Hgb 11.2 L Hct 33.0 L MCV 88 MCH 29.9 MCHC 33.9 RDW 13.9 Plt Count 196 Seg Neutrophils % 72.6 Lymphocytes % 17.2 Monocytes % 8.8 Eosinophils % 0.8 Basophils % 0.6 Absolute Neutrophils 5.4 Absolute Lymphocytes 1.3 Absolute Monocytes 0.7 Absolute Eosinophils 0.1 Absolute Basophils 0.0 Sodium 141.2 Potassium 3.2 L Chloride 99 Carbon Dioxide 31 H Anion Gap 11 BUN 22 H Creatinine 0.97 Est GFR ( Amer) > 60 Est GFR (Non-Af Amer) > 60 Glucose 198 H Calcium 8.9 Urine Color COLORLESS Urine Appearance CLEAR Urine pH 5.0 Ur Specific [place] 1.033 Urine Protein NEGATIVE Urine Glucose (UA) 50 H Urine Ketones NEGATIVE Urine Blood NEGATIVE Urine Nitrite NEGATIVE Ur Leukocyte Esterase NEGATIVE Urine WBC (Auto) 0 Urine RBC (Auto) 0 05/06/18 04:38 NT-Pro-B Natriuret Pep 536 Impressions: Chest X-Ray 05/05/18 12:36 IMPRESSION: Left lower lobe airspace disease pulmonary hemorrhage versus pneumonia. Old volume loss and scarring in the left hemithorax post upper lobectomy Chest/Abdomen CTA 05/05/18 13:07 IMPRESSION: 1. No evidence of pulmonary embolus or aortic disease. 2. Chronic left lung postoperative volume loss and scar. Superimposed ground- glass infiltrate noted on today's study. Differential includes pulmonary edema , pulmonary hemorrhage and atypical causes of pneumonia (viral, eosinophilic) along with hypersensitivity pneumonitis. Assessment & Plan - Diagnosis (1) Ground glass opacity present on imaging of lung Is this a current diagnosis for this admission?: Yes Plan: Patient has a history of lung cancer with left lower lobe resection. He has been having hemoptysis over the last 2 days. He has underlying chronic obstructive pulmonary disease with progressive exertional dyspnea per his . He is on oxygen at home on an as-needed basis. CT angiogram revealed groundglass opacity on the left. Possible etiologies include pneumonia versus hemorrhage versus fibrosis. He is afebrile and has normal white blood cell count. With multiple malignancies he could be immunocompromised. I will admitted to the hospital. I will not give him antibiotic therapy immediately. I will have pulmonology see the patient in the morning as well. 05/06/2018-without antibiotics the patient's white cell count is normalized. He is afebrile. It is very likely that this could be related to fluid or fibrotic changes. He does have an appointment with his drive man for lung cancer follow-up later this month. With that in mind I am not going to order a pulmonary consult here. The patient does have an extremely complex history. I will recheck a chest x-ray tomorrow. (2) Hemoptysis Is this a current diagnosis for this admission?: Yes Plan: 05/06/2018-the patient states that he did cough up some mucus this morning. There was just a trace of blood. This seems to be resolving spontaneously. (3) COPD (chronic obstructive pulmonary disease) Qualifiers: COPD type: unspecified COPD Qualified Code(s): J44.9 - Chronic obstructive pulmonary disease, unspecified Is this a current diagnosis for this admission?: Yes Plan: Patient has a history of chronic obstructive pulmonary disease. He is on Symbicort inhaler therapy. As noted above he does have oxygen at home. He does not always need it. We will continue his Symbicort. I have ordered nebulizer therapies as needed. Respiratory therapy will monitor his oxygen and we will wean oxygen if tolerated. 05/06/2018-continue current regimen. Nebulizer therapy if needed. (4) Diabetes Qualifiers: Diabetes mellitus type: type 1 Diabetes mellitus complication detail: with unspecified neuropathy Is this a current diagnosis for this admission?: Yes Plan: The patient is going to continue with his insulin pump at his current settings. I have ordered Humalog sliding scale for additional coverage if needed. We will check his fingerstick glucoses at mealtime and bedtime. He will also be on a cardiac consistent carbohydrate diet. 05/06/2018-the patient continues use of his insulin pump. We provide a sliding scale if needed. - Time Time Spent with patient: 15-24 minutes Medications reviewed and adjusted accordingly: Yes Anticipated discharge: Home - Inpatient Certification Based on my medical assessment, after consideration of the patient's comorbidities, presenting symptoms, or acuity I expect that the services needed warrant INPATIENT care.: Yes I certify that my determination is in accordance with my understanding of Medicare's requirements for reasonable and necessary INPATIENT services [42 CFR 412.3e].: Yes
[2018-05-06] MEDS ORDERED: TAMSULOSIN HCL 0.4 MG CAP.SR.24H PO SCH (18:00)
[2018-05-06] MEDS ORDERED: [UNRECOGNIZED DRUG - OTHER] PO SCH (22:00)
[2018-05-06] MEDS: SERTRALINE HCL 50 MG TABLET PO SCH (22:52)
[2018-05-06] MEDS: TRAZODONE HCL 50 MG TABLET PO SCH (22:53)
[2018-05-07] MEDS: LANSOPRAZOLE 30 MG TAB.RAP.DR PO SCH (05:37)
[2018-05-07] MEDS: HYDROCHLOROTHIAZIDE 25 MG TABLET PO SCH (11:16)
[2018-05-07] MEDS: GABAPENTIN 300 MG CAPSULE PO SCH (11:18)
[2018-05-07] MEDS: CHOLECALCIFEROL (D3) 1,000 UNIT TABLET PO SCH (11:18)
[2018-05-07] MEDS: FUROSEMIDE 40 MG TABLET PO SCH (11:18)
[2018-05-07] MEDS: GUAIFENESIN 600 MG TABLET.SA PO SCH (11:19)
[2018-05-07] MEDS: POTASSIUM CHLORIDE 10 MEQ CAPSULE.ER PO SCH (11:19)
[2018-05-07] MEDS: BUPROPION HCL 100 MG TABLET PO SCH (11:19)
[2018-05-07] MEDS: DILTIAZEM HCL 120 MG CAP.SR.24H PO SCH (11:22)
[2018-05-07] MEDS: BUDESONIDE/FORMOTEROL 160-4.5 MCG 60 PUFF/6 GM MDI IH SCH (11:23)
[2018-05-07 13:43] VITALS: BP 149/67
--- NOTE | 2018-05-08 15:39 | PDOC DISCHARGE SUMMARY ---
General - Admit/Disc Date/PCP Admission Date/Primary Care Provider: 05/05/18 17:17 Discharge Date: 05/07/18 - Discharge Diagnosis (1) Hemoptysis Is this a current diagnosis for this admission?: Yes Summary: The patient presented with hemoptysis. He felt more short of breath. He is already on oxygen therapy. He has a complex history including lung cancer with left lower lobe resection. The patient is on oxygen therapy at home. His hemoptysis resolved without significant intervention. It is most likely from inflammation from a viral pneumonitis or a primary pulmonary issue. I recommended he follow-up with his pulmonary physician within a week or 2. (2) Ground glass opacity present on imaging of lung Is this a current diagnosis for this admission?: Yes Summary: Patient has a complex history including lung cancer with lower lobe resection on the left. He has been having hemoptysis over the last several days. There is groundglass appearance in the lung. Because he did not have an elevated white count I held antibiotic therapy. This could also be fibrotic changes or some other pulmonary parenchymal bleeding. His hemoptysis actually resolved within 2 days. He does have a follow-up with his lung physician. I suggested that if it is far out he called to move the appointment forward. (3) COPD (chronic obstructive pulmonary disease) Is this a current diagnosis for this admission?: Yes Summary: The patient has history of chronic obstructive pulmonary disease. He is normally on 1 L of oxygen at home. He did require 2 L initially but we were able to wean him back to 1 L by discharge. He will return home on his baseline medication regimen. (4) Diabetes Is this a current diagnosis for this admission?: Yes Summary: Patient has an insulin pump. He was making his adjustments while in the hospital. He did have some fluctuation but this could be related to the acute process that he was experiencing. He will continue his current settings and manage his diabetes at home as he has been doing. - Additional Information Resuscitation Status: Do Not Resuscitate Discharge Diet: Diabetic Home Medications: Albuterol Sulfate [Ventolin 0.083% Neb 2.5 mg/3 mL Ampul] 1 vial NEB RTQ4HP PRN 05/06/18 Budesonide/Formoterol Fumarate [Symbicort HFA 160-4.5 mcg Inhaler 6 gm] 2 puff IH Q12 05/06/18 Bupropion HCl [Wellbutrin Sr 100 mg Tablet] 100 tab PO QAM 05/06/18 Cholecalciferol (Vitamin D3) [Vitamin D3 1000 Unit Tablet] 1,000 unit PO DAILY 05/06/18 Dextrose [Glutose 40% Gel 15 gm Tube] 15 gm PO .ASDIR PRN 05/06/18 Diltiazem HCl [Diltiazem ER] 120 mg PO Q12 05/06/18 Edoxaban Tosylate [Savaysa] 60 mg PO DAILY 05/06/18 Gabapentin [Neurontin 300 mg Capsule] 300 mg PO Q12 05/06/18 Hydrochlorothiazide [Hydrodiuril 25 mg Tablet] 25 mg PO DAILY 05/06/18 Insulin Aspart [Novolog Insulin (Aspart) 100 unit/mL] 75 unit SQ .ASDIR Insulin Glargine,Hum.rec.anlog [Lantus Insulin 100 Unit/1 ml 10 ml] 20 unit SUBCUT DAILY 05/06/18 Omeprazole 20 mg PO Q6AM 05/06/18 Ondansetron [Ondansetron Odt] 4 mg PO QIDP PRN 05/06/18 Sertraline HCl [Zoloft] 200 mg PO QHS 05/06/18 Simvastatin [Zocor 20 mg Tablet] 10 mg PO QHS 05/06/18 Tamsulosin HCl [Flomax] 0.4 mg PO DAILY 05/06/18 Tiotropium Dexter [Spiriva Handihaler 5 Cap/Kit (18 Mcg/Cap)] 1 cap IH DAILY Budesonide/Formoterol Fumarate [Symbicort HFA 160-4.5 mcg Inhaler 6 gm] 2 puff IH Q12 inhaler 05/07/18 Bupropion HCl [Wellbutrin 100 mg Tablet] 100 mg PO DAILY tablet 05/07/18 Cholecalciferol (Vitamin D3) [Vitamin D3 1000 Unit Tablet] 1,000 unit PO DAILY tablet 05/07/18 Diltiazem HCl [Cardizem Cd 120 mg Capsule] 120 mg PO Q12 cap.sr.24h 05/07/18 Furosemide [Lasix 40 mg Tablet] 40 mg PO DAILY tablet 05/07/18 Gabapentin [Neurontin 300 mg Capsule] 300 mg PO Q12 capsule 05/07/18 Guaifenesin [Mucinex Sr 600 mg Tablet.sa] 600 mg PO Q12 tablet.sa 05/07/18 Hydrochlorothiazide [Hydrodiuril 25 mg Tablet] 25 mg PO DAILY tablet 05/07/18 Insulin Lispro [Humalog Insulin (Lispro) 100 unit/mL] 0 - 12 unit SUBCUT ACHSP PRN unit 05/07/18 Insulin Regular, Human [Humulin R (Reg) Insulin 100 unit/mL] 0 unit SUBCUT CONTINUOUS unit 05/07/18 Ipratropium/Albuterol Sulfate [Duoneb 3 ml Ampul] 3 ml NEB RTQ6HP PRN vial.neb 05/07/18 Potassium Chloride [Klor-Con 10 Meq Capsule ER] 20 meq PO DAILY capsule.er 11/17 Sertraline HCl [Zoloft 50 mg Tablet] 150 mg PO QHS tablet 05/07/18 Tamsulosin HCl [Flomax 0.4 mg Cap.sr] 0.4 mg PO PCSUPPER cap.sr.24h 05/07/18 Trazodone HCl [Desyrel 50 mg Tablet] 150 mg PO QHS tablet 05/07/18 History of Present Illness Patient complains of: Increased shortness of breath with hemoptysis History of Present Illness: LITA LANG is a 72 year old male with an extremely complex medical history. He recently finished treatment for bladder cancer recurrence. He has a history of COPD. He began to have a dry cough several days ago. Yesterday he noticed hemoptysis. Initial episode showed more blood than mucus. Subsequently the amount of blood was decreasing relative to the amount of mucus. He has no focal discomfort in his throat or chest. 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 He denies fever or chills. He has experienced some nausea. He has felt some shortness of breath over his baseline. He is on oxygen at home. His reports that he does have significant exertional dyspnea but this has been chronic and progressive. CT scan of the chest revealed groundglass infiltrates. There are potential etiologies included pneumonia, hemorrhagic pneumonitis or pulmonary fibrosis. The patient was admitted to the hospitalist service. Please see below for treatment plan. Hospital Course Hospital Course: The patient had an unremarkable hospital course. He was given additional nebulizer treatments. He was given increased oxygen supply. Over the course of the 2 days his hemoptysis resolved steadily. With the additional nebulizer treatments we are able to wean his oxygen back down to his baseline 1 L. He did not require anything higher than 2 L. His diabetes fluctuated but he adjusts his insulin pump on his own. There were never any extreme readings with regard to Accu-Cheks. The hemoptysis could have multiple etiologies. He may have had a brief viral pneumonitis versus a primary pulmonary parenchymal issue. He does have follow-up coming up with the laundry sorter with regard to his lung disease/lung cancer. I will defer to outpatient management for further diagnostics. Physical Exam Vital Signs: Temp Pulse Resp BP Pulse Ox 97.5 F 78 14 149/67 H 93 05/07/18 12:03 05/07/18 12:21 05/07/18 12:21 05/07/18 12:03 05/07/18 12:21 Pulse Oximeter Continuous Start: 05/05/18 19: 26 Freq: RTQ4 Status: Complete Document 05/06/18 12:00 [facility] (Rec: 05/06/18 12:42 [facility] [id number]) Pulse Oximetry Assessment Oxygen Saturation (92-100) 93 Oxygen Flow Rate (L/min) 1 Oxygen Delivery Method Nasal Cannula Equipment Usage Equipment Standby Continuous SpO2 Machine # - Intake & Output 05/07/18 05/08/18 05/09/18 06:59 06:59 06:59 Intake Total 1417 Balance 1417 Weight 93.5 kg General appearance: PRESENT: no acute distress, cooperative, well-developed Respiratory exam: PRESENT: clear to auscultation grisel, symmetrical, unlabored. ABSENT: accessory muscle use, crackles, rales, rhonchi, wheezes Cardiovascular exam: PRESENT: RRR, +S1, +S2, systolic murmur - 2/6 GI/Abdominal exam: PRESENT: normal bowel sounds, soft. ABSENT: distended, tenderness Extremities exam: ABSENT: calf tenderness, pedal edema Neurological exam: PRESENT: alert, altered, oriented to person, oriented to place, oriented to time, oriented to situation, CN II-XII grossly intact Psychiatric exam: PRESENT: appropriate affect, normal mood. ABSENT: agitated, anxious Focused psych exam: ABSENT: restlessness Results Laboratory Results: 05/06/18 04:38 05/06/18 04:38 05/06/18 04:38 NT-Pro-B Natriuret Pep 536 Impressions: Chest X-Ray 05/05/18 12:36 IMPRESSION: Left lower lobe airspace disease pulmonary hemorrhage versus pneumonia. Old volume loss and scarring in the left hemithorax post upper lobectomy Chest/Abdomen CTA 05/05/18 13:07 IMPRESSION: 1. No evidence of pulmonary embolus or aortic disease. 2. Chronic left lung postoperative volume loss and scar. Superimposed ground- glass infiltrate noted on today's study. Differential includes pulmonary edema , pulmonary hemorrhage and atypical causes of pneumonia (viral, eosinophilic) along with hypersensitivity pneumonitis. Qualifiers - * PATIENT BEING DISCHARGED WITH ANY OF THE FOLLOWING DIAGNOSIS: No Plan Discharge Plan: Continue previous medication regimen. He has nebulizer therapy at home. He will use his judgment with regard to as needed nebulizer treatments. As noted above he should follow-up with his laundry sorter regarding the radiologic appearance of his lungs. It seems less likely to be a severe issue since the hemoptysis cleared relatively quickly and he was able to return to his baseline oxygen. Time Spent: Greater than 30 Minutes
== END 2018-05-07 16:01 | disposition home or self-care (01) | DRG 194 ==
LOC: ER 11:58 → EH 17:17 → 4N 20:10
PROVIDERS: ADMIT Hospitalist; ATTEND Hospitalist
DX: J12.9 Viral pneumonia, unspecified (principal); R04.2 Hemoptysis; J44.1 Chronic obstructive pulmonary disease with (acute) exacerbation; C34.32 Malignant neoplasm of lower lobe, left bronchus or lung; Z99.81 Dependence on supplemental oxygen; E78.5 Hyperlipidemia, unspecified; J44.9 Chronic obstructive pulmonary disease, unspecified; J98.4 Other disorders of lung; I10 Essential (primary) hypertension; K21.9 Gastro-esophageal reflux disease without esophagitis; E10.9 Type 1 diabetes mellitus without complications; Z96.41 Presence of insulin pump (external) (internal); Z79.4 Long term (current) use of insulin; Z88.5 Allergy status to narcotic agent; Z66 Do not resuscitate; Z90.2 Acquired absence of lung [part of]; Z81.1 Family history of alcohol abuse and dependence; Z80.52 Family history of malignant neoplasm of bladder; Z80.0 Family history of malignant neoplasm of digestive organs; Z85.21 Personal history of malignant neoplasm of larynx; Z82.5 Family history of asthma and other chronic lower respiratory diseases; Z79.899 Other long term (current) drug therapy; Z79.51 Long term (current) use of inhaled steroids
CPT/HCPCS: 36415; 71046; 71275; 80048; 80053; 81001; 82962; 83880; 85025; 85610; 85730; 99285; J3480; J3490; J7620

== ENCOUNTER 2018-06-25 15:07 | Emergency (ER) | payer OTHER, MEDICARE, BC ==
--- NOTE | 2018-06-25 17:18 | RADIOLOGY REPORT (SQ) ---
EXAM DESCRIPTION: ELBOW LEFT OVER 2 VIEWS COMPLETED DATE/TIME: 06/25/2018 5:02 pm REASON FOR STUDY: fall COMPARISON: None. NUMBER OF VIEWS: Four views. TECHNIQUE: AP, lateral, and both oblique radiographic images acquired of the left elbow. LIMITATIONS: None. FINDINGS: MINERALIZATION: Normal. BONES: No acute fracture or dislocation. No worrisome bone lesions. JOINT: No effusion. SOFT TISSUES: No soft tissue swelling. No foreign body. OTHER: No other significant finding. IMPRESSION: NEGATIVE STUDY OF THE LEFT ELBOW. NO RADIOGRAPHIC EVIDENCE OF ACUTE INJURY. TECHNICAL DOCUMENTATION: JOB ID: [id number] [employer]- All Rights Reserved Reading location - IP/workstation name: [email or web address]
--- NOTE | 2018-06-25 17:22 | RADIOLOGY REPORT (SQ) ---
EXAM DESCRIPTION: RIBS LEFT W/PA CHEST COMPLETED DATE/TIME: 06/25/2018 5:02 pm REASON FOR STUDY: fall COMPARISON: Chest x-ray 05/05/2018 TECHNIQUE: Frontal view of the chest and additional views of the left ribs acquired. NUMBER OF VIEWS: Four views LIMITATIONS: None. FINDINGS: FRONTAL CXR: There is increased opacification in the left base. The left hemidiaphragm re stephon well-defined. Chronic blunting of left costophrenic angle. RIBS: There is a displaced fracture of the left 5th rib. OTHER: No other significant finding. IMPRESSION: Displaced fracture of the left 5th rib. Cannot exclude airspace disease in the left low er lobe. COMMENT: SITE OF TRAUMA/COMPLAINT MARKED/STAMP COMPLETED: NO. TECHNICAL DOCUMENTATION: JOB ID: [id number] [employer]- All Rights Reserved Reading location - IP/workstation name: [email or web address]
--- NOTE | 2018-06-25 17:23 | RADIOLOGY REPORT (SQ) ---
EXAM DESCRIPTION: KNEE LEFT 2 VIEWS COMPLETED DATE/TIME: 06/25/2018 5:03 pm REASON FOR STUDY: fall COMPARISON: None. NUMBER OF VIEWS: Two views. TECHNIQUE: AP and lateral radiographic images acquired of the left knee. LIMITATIONS: None. FINDINGS: MINERALIZATION: Normal. BONES: No acute fracture or dislocation. No worrisome bone lesions. JOINT: No effusion. SOFT TISSUES: No soft tissue swelling. No radio-opaque foreign body. OTHER: No other significant finding. IMPRESSION: NEGATIVE STUDY OF THE LEFT KNEE. NO RADIOGRAPHIC EVIDENCE OF ACUTE INJURY. TECHNICAL DOCUMENTATION: JOB ID: [id number] [employer]- All Rights Reserved Reading location - IP/workstation name: [email or web address]
[2018-06-25] MEDS ORDERED: MORPHINE SULFATE 10 MG/ML INJ IV ONE (17:37)
[2018-06-25] MEDS ORDERED: MORPHINE SULFATE 10 MG/ML INJ IM ONE (17:51)
--- NOTE | 2018-06-25 17:51 | ER Document Report ---
Addendum entered and electronically signed by WES BRADY FNP-C 06/25/18 18:12: Discharge - Discharge Clinical Impression: Fractured rib, Knee sprain, Bladder cancer Condition: Stable Disposition: HOME, SELF-CARE Instructions: Ice & Elevation ([facility]), Oral Narcotic Medication ([facility]), Rib Contusion ([facility]), Rib Injuries and Fractures ([facility]), Sprained Knee ([facility]) Additional Instructions: Return immediately for any new or worsening symptoms. Follow up with primary care provider, call tomorrow to make followup appointment. Prescriptions: Hydrocodone/Acetaminophen [[place] 5-325 mg Tablet] 1 tab PO Q6HP PRN #12 tablet PRN Reason: Forms: Return to Work Referrals: SHAHBAZ OSORIO MD [ACTIVE STAFF] - Follow up tomorrow LELE PEREZ DO [NO LOCAL MD] - Follow up tomorrow Original Note: ED General - General Chief Complaint: Fall Injury Stated Complaint: FALL/LEFT KNEE PAIN Time Seen by Provider: 06/25/18 16:43 TRAVEL OUTSIDE OF THE [place] IN LAST 30 DAYS: No - Related Data Allergies/Adverse Reactions: divalproex sodium [From Depakote] Allergy (Verified 05/05/18 12:02) codeine Adverse Reaction (Verified 05/05/18 12:02) Past Medical History - General Information source: Patient - Social History Smoking Status: Never Smoker Chew tobacco use (# tins/day): No Frequency of alcohol use: None Drug Abuse: None Family History: Hyperlipidemia, Hypertension, Malignancy Patient has suicidal ideation: No Patient has homicidal ideation: No - Past Medical History Cardiac Medical History: Reports: Hx Hypercholesterolemia, Hx Hypertension Pulmonary Medical History: Reports: Hx COPD, Hx Pneumonia Endocrine Medical History: Reports: Hx Diabetes Mellitus Type 1, Hx Diabetes Mellitus Type 2 Renal/ Medical History: Denies: Hx Peritoneal Dialysis Malignancy Medical History: Reports Hx Lung Cancer GI Medical History: Reports: Hx Gastroesophageal Reflux Disease Psychiatric Medical History: Reports: Hx Depression - years ago Past Surgical History: Reports: Hx Orthopedic Surgery - Right humerus bone cyst, Other - left lower lobectomy 06/2016, cystoscopy, focal cords - Immunizations Hx Pneumococcal Vaccination: 06/02/16 Review of Systems - Review of Systems Constitutional: No symptoms reported EENT: No symptoms reported Cardiovascular: No symptoms reported Respiratory: No symptoms reported Gastrointestinal: No symptoms reported Genitourinary: No symptoms reported Male Genitourinary: No symptoms reported Musculoskeletal: See HPI Skin: No symptoms reported Hematologic/Lymphatic: No symptoms reported Neurological/Psychological: No symptoms reported Physical Exam - Vital signs Vitals: Temp Pulse Resp BP Pulse Ox 98.7 F 97 17 133/62 H 92 06/25/18 15:30 06/25/18 15:30 06/25/18 15:30 06/25/18 15:30 06/25/18 15:30 - Notes Notes: PHYSICAL EXAMINATION: GENERAL: Well-appearing, well-nourished and in no acute distress. HEAD: Atraumatic, normocephalic. EYES: Pupils equal round and reactive to light, extraocular movements intact, sclera anicteric, conjunctiva are normal. ENT: Nares patent, oropharynx clear without exudates. Moist mucous membranes. NECK: Normal range of motion, supple without lymphadenopathy LUNGS: Breath sounds clear to auscultation bilaterally and equal. No wheezes rales or rhonchi. HEART: Regular rate and rhythm without murmurs ABDOMEN: Soft, nontender, nondistended abdomen. No guarding, no rebound. No masses appreciated. Musculoskeletal: Normal range of motion, no pitting or edema. No cyanosis. Tenderness to fifth rib on palpation with intercostal tenderness, no ecchymosis or step-off noted. 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 tenderness to left knee and palpation, full PROM distal pulses +2 bilateral lower extremities as well as DTR NEUROLOGICAL: Cranial nerves grossly intact. Normal speech, normal gait. Normal sensory, motor exams PSYCH: Normal mood, normal affect. SKIN: Warm, Dry, normal turgor, no rashes or lesions noted. Course - Re-evaluation Re-evalutation: 06/25/18 17:41 Afebrile, vitals stable no distress presents to the ED for evaluation of fall where he has most pain to his left rib. X-ray does show nondisplaced fracture of the fifth rib no pneumothorax pneumonia noted, left knee and left elbow x-ray negative for acute fracture or dislocation, pain is 7 out of 10, worse with cough deep breaths, patient is taking active chemotherapy for bladder cancer several denies any metastasis . will give patient morphine shot, send him home with short supply of [place], advised splinting with deep breaths, 10 breaths an hour advised to cough twice an hour, her and spirometer given for deep breaths. Advised to not drive, drink or operate machinery while taking [place]. Follow-up with primary care provider tomorrow. I have reevaluated this patient multiple times and no significant life threatening changes, no signs of toxicity, sepsis or peritonitis are noted. The patient and I have discussed the diagnosis and r isks, and we agree with discharging home and close follow-up. We also discussed returning to the Emergency Department immediately if new or worsening symptoms occur with the understanding that symptoms and presentations can change. At this time will discharge with return precautions and follow-up recommendations. Verbal discharge instructions given a the bedside and opportunity for questions given. We have discussed the symptoms which are most concerning (e.g., shortness of breath, chest pain, numbness or tingling, worsening pain) that necessitate immediate return. Medication warnings reviewed. All questions and concerns answered by this provider. Patient is in agreement with this plan and has verbalized understanding of return precautions and the need for primary care follow-up in the next 24-72 hours. Patient verbalized understanding of plan of care and agree with plan of care. - Vital Signs Vital signs: Temp Pulse Resp BP Pulse Ox 98.7 F 97 17 133/62 H 92 06/25/18 15:30 06/25/18 15:30 06/25/18 15:30 06/25/18 15:30 06/25/18 15:30 Discharge - Discharge Clinical Impression: Fractured rib, Knee sprain, Bladder cancer Condition: Stable Disposition: HOME, SELF-CARE Instructions: Oral Narcotic Medication ([facility]), Rib Injuries and Fractures ([facility]), Rib Contusion ([facility]), Ice & Elevation ([facility]), Sprained Knee ([facility]) Additional Instructions: Return immediately for any new or worsening symptoms. Follow up with primary care provider, call tomorrow to make followup appointment. Prescriptions: Hydrocodone/Acetaminophen [[place] 5-325 mg Tablet] 1 tab PO Q6HP PRN #12 tablet PRN Reason: Referrals: LELE PEREZ DO [NO LOCAL MD] - Follow up tomorrow SHAHBAZ OSORIO MD [ACTIVE STAFF] - Follow up tomorrow
[2018-06-25 18:16] VITALS: BP 138/61
== END 2018-06-25 18:16 | disposition home or self-care (01) ==
LOC: ER 15:07
DX: S22.32XA Fracture of one rib, left side, initial encounter for closed fracture (principal); S83.90XA Sprain of unspecified site of unspecified knee, initial encounter; W10.8XXA Fall (on) (from) other stairs and steps, initial encounter; C67.9 Malignant neoplasm of bladder, unspecified; Z79.899 Other long term (current) drug therapy; I10 Essential (primary) hypertension; J44.9 Chronic obstructive pulmonary disease, unspecified; E11.9 Type 2 diabetes mellitus without complications; Z88.8 Allergy status to other drugs, medicaments and biological substances
CPT/HCPCS: 99283; 96372; 73080; 73560; 71101; J2270

== ENCOUNTER 2019-04-10 11:05 | Emergency (ER) | payer OTHER, MEDICARE, BC ==
--- NOTE | 2019-04-10 11:28 | ER Document Report ---
ED Medical Screen (RME) - General Stated Complaint: FALL/ABDOMINAL PAIN Time Seen by Provider: 04/10/19 11:21 Mode of Arrival: Wheelchair Information source: Patient Notes: Patient reports having a mechanical fall yesterday when she tripped over a hose falling onto the pavement. Patient states after the fall he developed left chest, left wrist, right hand and right foot pain. Patient does report nausea and vomiting this morning. Patient reports that he has chronic shortness of breath. Patient reports his tetanus immunization is currently up-to-date. I have greeted and performed a rapid initial assessment of this patient. A comprehensive ED assessment and evaluation of the patient, analysis of test results and completion of the medical decision making process will be conducted by additional ED providers. TRAVEL OUTSIDE OF THE [place] IN LAST 30 DAYS: No - Related Data Allergies/Adverse Reactions: divalproex sodium [From Depakote] Allergy (Verified 05/05/18 12:02) codeine Adverse Reaction (Verified 05/05/18 12:02) Past Medical History - Past Medical History Cardiac Medical History: Reports: Hx Hypercholesterolemia, Hx Hypertension Pulmonary Medical History: Reports: Hx COPD, Hx Pneumonia Endocrine Medical History: Reports: Hx Diabetes Mellitus Type 1, Hx Diabetes Mellitus Type 2 Renal/ Medical History: Denies: Hx Peritoneal Dialysis Malignancy Medical History: Reports Hx Lung Cancer GI Medical History: Reports: Hx Gastroesophageal Reflux Disease Psychiatric Medical History: Reports: Hx Depression - years ago Past Surgical History: Reports: Hx Orthopedic Surgery - Right humerus bone cyst, Other - left lower lobectomy 06/2016, cystoscopy, focal cords Physical Exam - Respiratory Respiratory status: No respiratory distress Chest status: Tender, Pain on movement Chest palpation: Tender
--- NOTE | 2019-04-10 12:02 | RADIOLOGY REPORT (SQ) ---
EXAM DESCRIPTION: FOOT RIGHT COMPLETE COMPLETED DATE/TIME: 04/10/2019 11:53 am REASON FOR STUDY: fall COMPARISON: None. NUMBER OF VIEWS: Three views. TECHNIQUE: AP, lateral and oblique radiographic images acquired of the right foot. LIMITATIONS: None. FINDINGS: MINERALIZATION: Normal. BONES: No acute fracture or dislocation. No worrisome bone lesions. JOINTS: No effusions. SOFT TISSUES: No soft tissue swelling. No foreign body. OTHER: No other significant finding. IMPRESSION: NEGATIVE STUDY OF THE RIGHT FOOT. NO RADIOGRAPHIC EVIDENCE OF ACUTE INJURY. TECHNICAL DOCUMENTATION: JOB ID: [id number] [employer]- All Rights Reserved Reading location - IP/workstation name: [email or web address]
--- NOTE | 2019-04-10 12:02 | RADIOLOGY REPORT (SQ) ---
EXAM DESCRIPTION: CHEST 2 VIEWS COMPLETED DATE/TIME: 04/10/2019 11:53 am REASON FOR STUDY: cp COMPARISON: 05/05/2018 EXAM PARAMETERS: NUMBER OF VIEWS: two views TECHNIQUE: Digital Frontal and Lateral radiographic views of the chest acquired. RADIATION DOSE: NA LIMITATIONS: none FINDINGS: LUNGS AND PLEURA: Extensive chronic changes in the left lung stable. Right lung is clear. Chronic small nodule in the right lung. MEDIASTINUM AND HILAR STRUCTURES: No masses or contour abnormalities. HEART AND VASCULAR STRUCTURES: Heart normal size. No evidence for failure. BONES: No acute findings. HARDWARE: None in the chest. OTHER: No other significant finding. IMPRESSION: Stable chronic changes. No acute findings. TECHNICAL DOCUMENTATION: JOB ID: [id number] [employer]- All Rights Reserved Reading location - IP/workstation name: [email or web address]
--- NOTE | 2019-04-10 12:05 | ER Document Report ---
ED Fall - General Chief Complaint: Fall Stated Complaint: FALL/ABDOMINAL PAIN Time Seen by Provider: 04/10/19 11:21 [facility] Provider: [facility] [[facility]] - Follow up as needed Mode of Arrival: Wheelchair Information source: Patient Notes: 73-year-old male with hypertension, insulin-dependent diabetes mellitus, lung cancer, bladder cancer, throat cancer presents to the emergency department with chief complaint of left wrist, right wrist, right foot and ankle pain after a mechanical fall yesterday at home. Patient is also complaining of left chest wall pain secondary to the fall. Patient states he was walking and tripped over a hose was unable to catch himself. Patient states that he was unable to sleep well last night and that prompted him to get seen in the emergency department because the pain has persisted. Patient denies hitting his head, denies LOC, denies acute confusion, denies slurred speech, patient is on anticoagulation for history of DVT 2 years ago, denies acute shortness of breath, denies any abdominal pain. No other complaints TRAVEL OUTSIDE OF THE [place] IN LAST 30 DAYS: No - Related data Allergies/Adverse Reactions: divalproex sodium [From Depakote] Allergy (Verified 05/05/18 12:02) codeine Adverse Reaction (Verified 05/05/18 12:02) Past Medical History - General Information source: Patient - Social History Smoking Status: Never Smoker Chew tobacco use (# tins/day): No Frequency of alcohol use: None Drug Abuse: None Family History: Hyperlipidemia, Hypertension, Malignancy Patient has suicidal ideation: No Patient has homicidal ideation: No - Past Medical History Cardiac Medical History: Reports: Hx Hypercholesterolemia, Hx Hypertension Pulmonary Medical History: Reports: Hx COPD, Hx Pneumonia Endocrine Medical History: Reports: Hx Diabetes Mellitus Type 1, Hx Diabetes Mellitus Type 2 Renal/ Medical History: Denies: Hx Peritoneal Dialysis Malignancy Medical History: Reports Hx Lung Cancer GI Medical History: Reports: Hx Gastroesophageal Reflux Disease Psychiatric Medical History: Reports: Hx Depression - years ago Past Surgical History: Reports: Hx Orthopedic Surgery - Right humerus bone cyst, Other - left lower lobectomy 06/2016, cystoscopy, focal cords - Immunizations Hx Pneumococcal Vaccination: 06/02/16 Review of Systems - Review of Systems Constitutional: See HPI EENT: No symptoms reported Cardiovascular: See HPI Respiratory: See HPI Gastrointestinal: See HPI Genitourinary: No symptoms reported Male Genitourinary: No symptoms reported Musculoskeletal: See HPI Skin: No symptoms reported Hematologic/Lymphatic: No symptoms reported Neurological/Psychological: See HPI Physical Exam - Vital signs Vitals: Temp Pulse BP Pulse Ox 98.0 F 83 165/56 H 97 04/10/19 11:11 04/10/19 11:11 04/10/19 11:11 04/10/19 11:11 - Notes Notes: PHYSICAL EXAMINATION: Reviewed vital signs and charting by RN GENERAL: Alert, interacts well. No acute distress. HEAD: Normocephalic, atraumatic. EYES: Pupils equal and round. Extraocular movements intact. ENT: Oral mucosa moist, tongue midline. NECK: Full range of motion. Trachea midline. LUNGS: Clear to auscultation bilaterally, no wheezes, rales, or rhonchi. No respiratory distress. HEART: Regular rate and rhythm. No murmur ABDOMEN: soft, non-tender. No distention. Bowel sounds present EXTREMITIES: Moves all 4 extremities spontaneously. Mild edema on the medial aspect of the distal left ulna with tenderness to palpation, no snuffbox tenderness bilateral hands PSYCH: Normal affect, normal mood. SKIN: Warm, dry, normal turgor. Abrasions noted on his right first second third and fourth PIPs right hand Course - Re-evaluation Re-evalutation: 04/10/19 13:18 Patient is very well-appearing in no acute distress, very pleasant. Patient's main concern is pain after the fall and fractures. All x-rays were negative for any acute fractures or dislocations. EKG was done which showed normal sinus rhythm with a rate of 78, normal axis, QTC 424. Troponin negative, chest x-ray showed stable chronic changes. Lab work all consistent with previous and no acute electrolyte derangements. Patient's abdomen was soft and no tenderness to palpation so I very low concern for a surgical abdomen. I am not going to pursue CT of the abdomen/pelvis. Patient is at this time stable to go home. - Vital Signs Vital signs: Temp Pulse Resp BP Pulse Ox 98.0 F 83 165/56 H 97 04/10/19 11:11 04/10/19 11:11 04/10/19 11:11 04/10/19 11:11 - Laboratory Result Diagrams: 04/10/19 12:17 04/10/19 12:17 Laboratory results interpreted by me: 04/10/19 04/10/19 12:17 12:17 RBC 3.88 L Hgb 11.9 L Hct 35.7 L BUN 24 H Glucose 283 H Discharge - Discharge Clinical Impression: Left wrist pain, Right foot pain, Chest wall pain Fall Qualifiers: Encounter type: initial encounter Qualified Code(s): W19.XXXA - Unspecified fall, initial encounter Condition: Good Disposition: HOME, SELF-CARE Instructions: Chest Wall Pain ([facility]) Additional Instructions: You were seen in the emergency department after a fall for right wrist pain left wrist pain and foot pain. All of the x-rays were negative for fracture dislocation and your lab work was all very reassuring. Chest x-ray did not show any broken ribs. You most likely have soft tissue injuries and the will heal over the next 1 to 2 weeks. He can expect to be sore so please take acetaminophen 650 mg as needed for pain and, if you are able to ibuprofen 400 mg every 4-6 hours for pain and inflammation. [facility]. If you develop any significant abdominal pain, have bruising in your abdomen, get worsening shortness of breath compared to baseline, or you have any other concerning symptoms please merely return to the emergency department. Referrals: [facility] [Primary [facility] Provider] - Follow up as needed
--- NOTE | 2019-04-10 12:05 | RADIOLOGY REPORT (SQ) ---
EXAM DESCRIPTION: WRIST LEFT 3 VIEWS COMPLETED DATE/TIME: 04/10/2019 11:53 am REASON FOR STUDY: fall COMPARISON: None. NUMBER OF VIEWS: Three views. TECHNIQUE: AP, lateral, and oblique radiographic images acquired of the left wrist. LIMITATIONS: None. FINDINGS: MINERALIZATION: Osteopenia. BONES: No acute fracture or dislocation. No worrisome bone lesions. Normal alignment. SOFT TISSUES: No soft tissue swelling. No foreign body. OTHER: No other significant finding. IMPRESSION: NEGATIVE STUDY OF THE LEFT WRIST. NO RADIOGRAPHIC EVIDENCE OF ACUTE INJURY. TECHNICAL DOCUMENTATION: JOB ID: [id number] [employer]- All Rights Reserved Reading location - IP/workstation name: [email or web address]
--- NOTE | 2019-04-10 12:05 | RADIOLOGY REPORT (SQ) ---
EXAM DESCRIPTION: HAND RIGHT 3 VIEWS COMPLETED DATE/TIME: 04/10/2019 11:53 am REASON FOR STUDY: fall COMPARISON: None. EXAM PARAMETERS: NUMBER OF VIEWS: Three views. TECHNIQUE: AP, lateral and oblique radiographic images acquired of the right hand. LIMITATIONS: None. FINDINGS: MINERALIZATION: Osteopenia. BONES: No acute fracture or dislocation. No worrisome bone lesions. JOINTS: No effusions. SOFT TISSUES: No soft tissue swelling. No foreign body. OTHER: No other significant finding. IMPRESSION: NEGATIVE STUDY OF THE RIGHT HAND. NO RADIOGRAPHIC EVIDENCE OF ACUTE INJURY. TECHNICAL DOCUMENTATION: JOB ID: [id number] [employer]- All Rights Reserved Reading location - IP/workstation name: [email or web address]
[2019-04-10 12:26] LABS: ABSOLUTE EOSINOPHILS # (AUTO) 0.1 10^3/uL (0.0-0.6); ABSOLUTE LYMPHOCYTES (AUTO) 1.1 10^3/uL (0.5-4.7); ABSOLUTE MONOCYTES (AUTO) 0.7 10^3/uL (0.1-1.4); ABSOLUTE NEUT (AUTO) 6.2 10^3/uL (1.7-8.2); BASOPHILS % (AUTO) 0.4 % (0-2); EOSINOPHILS % (AUTO) 1.4 % (0-6); HEMATOCRIT 35.7 % (37.9-51.0); HEMOGLOBIN 11.9 g/dL (13.5-17.0); LYMPHOCYTES % (AUTO) 13.3 % (13-45); MEAN CORPUSCULAR HEMOGLOBIN 30.7 pg (27.0-33.4); MEAN CORPUSCULAR HGB CONC 33.5 g/dL (32.0-36.0); MEAN CORPUSCULAR VOLUME 92 fl (80-97); PLATELET COUNT 206 10^3/uL (150-450); RED BLOOD COUNT 3.88 10^6/uL (4.35-5.55); RED CELL DISTRIBUTION WIDTH 13.7 % (11.5-14.0); SEGMENTED NEUTROPHILS % (AUTO) 75.9 % (42-78); TOTAL CELLS COUNTED % (AUTO) 100 %; WHITE BLOOD COUNT 8.1 10^3/uL (4.0-10.5)
[2019-04-10 12:43] LABS: ALBUMIN 4.1 g/dL (3.5-5.0); ALKALINE PHOSPHATASE 100 U/L (38-126); ANION GAP 10 (5-19); ASPARTATE AMINO TRANSFERASE 29 U/L (17-59); BILIRUBIN,DIRECT 0.1 mg/dL (0.0-0.4); BILIRUBIN,TOTAL 0.5 mg/dL (0.2-1.3); BLOOD UREA NITROGEN 24 mg/dL (7-20); CALCIUM 9.3 mg/dL (8.4-10.2); CARBON DIOXIDE 30 mmol/L (22-30); CHLORIDE 100 mmol/L (98-107); GLUCOSE 283 mg/dL (75-110); POTASSIUM 4.2 mmol/L (3.6-5.0); TOTAL PROTEIN 7.2 g/dL (6.3-8.2)
[2019-04-10 14:29] VITALS: BP 154/101
--- NOTE | 2019-04-10 22:08 | EKG REPORT ---
SEVERITY:- NORMAL ECG - SINUS RHYTHM : Confirmed by: Lisa Cristina 10-Apr-2019 22:07:54
== END 2019-04-10 14:29 | disposition home or self-care (01) ==
LOC: ER 11:05
DX: S60.410A Abrasion of right index finger, initial encounter (principal); S60.412A Abrasion of right middle finger, initial encounter; S60.414A Abrasion of right ring finger, initial encounter; M25.532 Pain in left wrist; M79.671 Pain in right foot; R07.89 Other chest pain; W01.0XXA Fall on same level from slipping, tripping and stumbling without subsequent striking against object, initial encounter; E78.00 Pure hypercholesterolemia, unspecified; I10 Essential (primary) hypertension; E11.9 Type 2 diabetes mellitus without complications; Z85.118 Personal history of other malignant neoplasm of bronchus and lung; Z79.01 Long term (current) use of anticoagulants; Z86.718 Personal history of other venous thrombosis and embolism
CPT/HCPCS: 93005; 99284; 36415; 85025; 80053; 84484; 71046; 73630; 73130; 73110; 93010; L3908